=== PATIENT | female | born 1935 | race Caucasian/White ===

== ENCOUNTER → 2017-04-02 | Outpatient (CLI) | payer MEDICARE ==
[~2017-04-02] MED LIST: ATOR-22 PO; LISI-725 PO; LSX20 PO; MULT-506 PO; POTA-327 PO; PRT/20 PO; TRAM-10 PO
[2017-04-02 14:27] VITALS: BP 104/65; PULSE 76; TEMP 36.6; O2SAT 97
--- NOTE | 2017-04-02 15:43 | Radiation Oncology Follow-Up ---
Radiation Oncology Follow-Up Date of Visit Apr 02, 2017. 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 She has noted no changes to her breast. She denies any masses or tenderness and no change of the axilla. She' s had no swelling of her arm. She is up-to-date on mammography. She denies any bone pain. She has general arthralgias which are unchanged from previous. Allergies Coded Allergies: Penicillins (Unverified Allergy, Intermediate, HIVES, 03/12/10) Uncoded Allergies: NICKELSULFATE (Allergy, Mild, RASH, 10/26/09) Home Medications Scheduled Atorvastatin (Lipitor), 20 MG PO DAILY Furosemide (Lasix *), 20 MG PO DAILY Lisinopril (Zestril), 20 MG PO DAILY Multivitamin (Multivitamin), 1 TAB PO DAILY Pantoprazole (Protonix), 20 MG PO DAILY Potassium Ext Rel (Klor-Con), 10 MEQ PO BID Scheduled PRN Tramadol (Ultram), 1 TAB PO TID PRN for Pain Review of Systems Gastrointestinal: Symptoms: Constipation GI Comments: Manageable at home;relates it to tramadol use Oral: Symptoms: No Problems Respiratory: Symptoms: SOB With Exertion Other Respiratory: Pt reports this isn't a change; Urinary: Symptoms: Frequency Comments: Frequency without change;some urinary leakage during the day; Skin: Symptoms: No Problems Breast: Right Upper Arm Measurement: 35.5 Right Mid Arm Measurement: 26.0 Right Wrist Measurement: 17.5 Left Upper Arm Measurement: 33.0 Left Mid Arm Measurement: 24.0 Left Wrist Measurement: 16.8 Arm Dominence: Right Physical Exam Vital Signs Date Time Temp Pulse Resp B/P (MAP) Pulse Ox O2 Delivery O2 Flow Rate FiO2 04/02/17 14:27 36.6 76 12 104/65 97 Fatigue: None General Appearance: no apparent distress Eyes: normal inspection, EOMI ENT: hearing grossly normal, TMs normal Neck: no adenopathy, thyroid normal Respiratory/Chest: lungs clear, no respiratory distress, no accessory muscle use Breast: Breast examination reveals well-healed incisions of the right breast. Right breast notably smaller than the left. There are no masses or tenderness and no axillary adenopathy. She has no skin retractions or nipple changes. Using the Montgomery score cosmesis she has a Outcome. Left breast shows no masses or tenderness no axillary adenopathy. Cardiovascular: regular rate, rhythm, no gallop, no murmur Abdomen: non tender, soft, no organomegaly Neurologic/Psychiatric: no motor/sensory deficits, alert, normal mood/affect Skin: warm/dry Lymphatic: no adenopathy Additional Studies BILATERAL DIGITAL SCREENING MAMMOGRAM WITH CAD: 06/27/2016 CLINICAL HISTORY: Asymptomatic. Personal history of breast cancer. Comparison is made to exams dated: 06/25/2015 mammogram, 06/23/2014 mammogram, mammogram, 06/20/2013 mammogram, 06/14/2012 mammogram - [facility], and 06/19/2009. FINDINGS: There are scattered areas of fibroglandular density in both breasts. Current study was also evaluated with a Computer Aided Detection (CAD) system. There is stable expected architectural distortion and associated surgical clips with homogeneously dense coarse dystrophic calcification near the surgical site in the right upper outer quadrant. There is a stable benign rim calcification in the left breast. No new suspicious mass, architectural distortion or cluster of microcalcifications is seen bilaterally. IMPRESSION: ACR BI-RADS CATEGORY 1: NEGATIVE There is no mammographic evidence of malignancy. A 1 year screening mammogram is recommended. The patient will receive written notification of the results. Approximately 10% of breast cancers are not detected with mammography. A negative mammographic report should not delay biopsy if a clinically suggestive mass is present. Melissa Ellis M.D. ay/:06/30/2016 21:36:07 Assessment & Plan Plan: Continue annual mammography. Continue regular follow-up with her primary care physician. She would like to continue follow-up with our office in regards to breast exams. An appointment was given for 1 year. She may call if she has any questions or concerns in the interim. Total Time In Follow-Up I spent 20 minutes speaking to the patient and performing examination. I spent 15 minutes reviewing information and completing this note. Copy To Kike Albrecht M.D. Problem Qualifiers (1) Breast cancer: Breast location: upper outer quadrant of breast Estrogen receptor status: positive Patient sex: female Laterality: right Qualified Codes: C50.411 - Malignant neoplasm of upper-outer quadrant of right female breast; Z17.0 - Estrogen receptor positive status [ER+]
== END | disposition home or self-care (01) ==
LOC: C.ONC 14:15
PROVIDERS: ATTEND Physician Assistant Medical
DX: Z08 Encounter for follow-up examination after completed treatment for malignant neoplasm (principal); Z92.3 Personal history of irradiation; Z85.3 Personal history of malignant neoplasm of breast

== ENCOUNTER → 2017-06-29 | Outpatient (CLI) | payer OTHER ==
--- NOTE | 2017-06-30 07:41 | MAMMOGRAPHY REPORT ---
BILATERAL DIGITAL SCREENING MAMMOGRAM WITH CAD: 06/29/2017 CLINICAL HISTORY: Routine screening. Patient has no complaints. TECHNIQUE: Bilateral CC, MLO and repeat right cc views were obtained. Current study was also evaluat ed with a Computer Aided Detection (CAD) system. COMPARISON: Comparison is made to exams dated: 06/27/2016 mammogram, 06/25/2015 mammogram, 06/23/2014 m ammogram, 06/20/2013 mammogram, 06/14/2012 mammogram, and 06/12/2011 mammogram - [facility] enter. BREAST COMPOSITION: There are scattered areas of fibroglandular density in both breasts. FINDINGS: There are stable surgical clips and a benign dystrophic calcification in the upper outer qu adrant of the right breast, at the site of prior lumpectomy. A few other stable benign-appearing oliver cifications are scattered bilaterally. No new suspicious mass, architectural distortion or cluster o f microcalcifications is seen. IMPRESSION: ACR BI-RADS CATEGORY 1: NEGATIVE There is no mammographic evidence of malignancy. A 1 year screening mammogram is recommended. The pa tient will receive written notification of the results. Approximately 10% of breast cancers are not detected with mammography. A negative mammographic report should not delay biopsy if a clinically suggestive mass is present. Melissa Ellis M.D. ay/:06/29/2017 14:44:27 Statistician Theoretical: Odette MCCARTNEY)(Ras), [facility] letter sent: Normal 1/2 BI-RADS Code: ACR BI-RADS Category 1: Negative
== END | disposition home or self-care (01) ==
LOC: C.MAMM 14:18
PROVIDERS: ATTEND Family Medicine
DX: Z12.31 Encounter for screening mammogram for malignant neoplasm of breast (principal)

== ENCOUNTER 2017-11-18 14:25 | Inpatient (IN) | payer MEDICARE, OTHER ==
[~2017-11-18] VITALS: Ht 175.3 cm; Wt 105.8 kg
[~2017-11-18 14:25] MED LIST changes: +ACET-1257 PO; -ATOR-22 PO; +FURO-85 PO; +LPT10 PO; -LSX20 PO; +PANT40TA2 PO; -POTA-327 PO; +POTA10CA28 PO; -PRT/20 PO; -TRAM-10 PO; +WARF-246 PO
[2017-11-18] MEDS ORDERED: TRAM-10 PO (14:45)
[2017-11-18] MEDS ORDERED: DILTIAZEM HCL 5 MG/ML 5 ML VIAL IV STA (14:56)
--- NOTE | 2017-11-18 14:58 | EMERGENCY ROOM VISIT NOTE ---
History Report prepared by Jie: Willis Dozier Under the Supervision of: Dr. Gaudencio Mueller M.D. First contact with patient: 14:46 Chief Complaint: CARDIAC ASSESSMENT Stated Complaint: NEW ONSET A-FIB Nursing Triage Summary: Pt by ALS from [facility] for cardiac assessment. Pt dx with A fib RVR on 11/12. Pt seen in office and found to be in A fib 130s. pt denies chest pain. some SOB, decreased mobility. increased edema to BLE, R>L. History of Present Illness The patient is a 82 year old female who presents to the Emergency Room via ALS from [facility] for a cardiac assessment. She has a past medical history of breast cancer in full remission. The patient was diagnosed with atrial fibrillation with RVR on 11/12/2017 and started on Metoprolol. She was seen in the office earlier today and was found to be tachycardic and currently in a fib. She denies any headaches, chest pain, abdominal pain, nausea, vomiting , diarrhea, weakness, or numbness. However, she is currently feeling short of breath. She notes that she has been having increased bilateral leg swelling for the past several months that has persisted and has not improved. Source of History: patient, transfer records Onset: earlier today Position: other (Heart) Symptom Intensity: moderate Quality: other (Tachycardia) Timing: constant Associated Symptoms: + SOB, No headache, No chest pain, No nausea, No vomiting, No abdominal pain, No diarrhea, No weakness, No numbness Review of Systems See HPI for pertinent positives & negatives. A total of 10 systems reviewed and were otherwise negative. Past Medical & Surgical Medical Problems: (1) Adrenal adenoma (2) Congestive heart failure (3) DVT (deep venous thrombosis) (4) Dyslipidemia (5) Hiatal hernia (6) History of breast cancer (7) History of intracranial hemorrhage (8) History of pulmonary embolism (9) Paroxysmal atrial fibrillation (10) Pulmonary embolus Surgical Problems: (1) H/O lumpectomy (2) Status post insertion of inferior vena caval filter (3) Status post partial mastectomy (4) Status post right knee replacement Old medical records were reviewed. Nurse's notes were reviewed and I agree with. Family History Omitted secondary to the patient's age. Social History Smoking Status: Former Smoker Drug Use: none Marital Status: single Housing Status: lives alone Occupation Status: retired Current/Historical Medications Scheduled Atorvastatin (Lipitor), 10 MG PO HS Furosemide (Lasix), 20 MG PO BID Lisinopril (Zestril), 20 MG PO QAM Metoprolol Succ (Toprol Xl) (Toprol-Xl), 25 MG PO QAM Pantoprazole (Pantoprazole Sodium), 40 MG PO QAM Potassium Chloride (Micro-K Ext Rel), 10 MEQ PO BID Pregabalin (Lyrica), 50 MG PO BID Warfarin Sodium (Warfarin Sodium), 5 MG PO DAILY Scheduled PRN Fluticasone Propionate (Nasal) (Flonase Allergy Relief), 2 SPRAYS DASHA DAILY PRN for Allergy Symptoms Tramadol (Ultram), 50 MG PO Q6H PRN for Pain Allergies Coded Allergies: Nickel (Verified Allergy, Intermediate, rash to nickel sulfate, 11/18/17) Penicillins (Unverified Allergy, Intermediate, HIVES, 07/22/17) Physical Exam Vital Signs Date Time Temp Pulse Resp B/P (MAP) Pulse Ox O2 Delivery O2 Flow Rate FiO2 11/18/17 19:09 103 11/18/17 18:58 113 18 115/58 97 Room Air 11/18/17 18:21 109 18 105/74 96 Nasal Cannula 2.0 11/18/17 17:39 117 20 126/62 96 Nasal Cannula 11/18/17 17:08 113 18 113/63 96 Nasal Cannula 2.0 11/18/17 16:25 102 18 97 11/18/17 16:01 107/69 11/18/17 15:55 101 17 95 11/18/17 15:44 102 20 104/70 98 Nasal Cannula 2.0 11/18/17 15:43 104/70 11/18/17 15:25 96 25 92 11/18/17 15:08 126/79 11/18/17 15:08 127 20 126/79 95 Room Air 11/18/17 14:55 114 21 95 11/18/17 14:38 142 11/18/17 14:32 95 Room Air 11/18/17 14:32 95 Room Air 11/18/17 14:32 36.5 121 22 130/77 95 Room Air 11/18/17 14:31 130/77 Physical Exam General: Non-ill appearing older female in no acute distress. HEENT: Normal cephalic atraumatic. Pupils are equal round and reactive to light. Extraocular movements are intact. Oropharynx is pink with moist mucous membranes. No swelling of the mouth lips or tongue. Neck: Supple with a midline trachea. No meningeal signs or stiffness, no JVD or bruits. No Stridor. Chest: Clear to auscultation bilaterally. No wheezes or rhonchi. No increased work of breathing. Heart: Tachycardic rate with an irregular rhythm. Abdomen: Soft nontender, nondistended without rebound guarding or rigidity. Extremities: No cyanosis clubbing. No calf tenderness or assymetry. Pitting edema to the bilateral lower extremities. Spine/Back. Non tender to palpation. No CVA tenderness Skin: Good turgor without rashes. Neurologic exam: Cranial nerves two through 12 are intact. Motor and sensation are intact and symmetrical throughout. Medical Decision & Procedures ER Provider Diagnostic Interpretation: Radiology results as stated below per my review and radiologist interpretation: CHEST ONE VIEW PORTABLE CLINICAL HISTORY: 82 years-old Female presenting with CHEST PAIN. TECHNIQUE: Portable upright AP view of the chest was obtained. COMPARISON: 07/22/2017. FINDINGS: Atherosclerosis of aortic arch. Cardiac silhouette enlarged. Prominence of pulmonary vasculature. Coarsened lung markings. No focal opacity. No large pleural effusion or pneumothorax. Scoliosis and exaggerated thoracic kyphosis. Osteopenia suspected. Calcification in the right breast projects over the right lung base. Large hiatal hernia. IMPRESSION: 1. Questionable volume overload. No erin pulmonary edema or other evidence of acute cardiopulmonary disease. 2. Large hiatal hernia. Electronically signed by: Rupert Donald M.D. 11/18/2017 3:09 PM Dictated Date/Time: 11/18/2017 3:08 PM Laboratory Results 11/18/17 14:45 Red Blood Count 4.07, Mean Corpuscular Volume 89.2, Mean Corpuscular Hemoglobin 29.0, Mean Corpuscular Hemoglobin Concent 32.5, Mean Platelet Volume 10.4, Neutrophils (%) (Auto) 75.9, Lymphocytes (%) (Auto) 12.4, Monocytes (%) (Auto) 8.7, Eosinophils (%) (Auto) 2.3, Basophils (%) (Auto) 0.6, Neutrophils # (Auto) 5.21, Lymphocytes # (Auto) 0.85, Monocytes # (Auto) 0.60, Eosinophils # (Auto) 0.16, Basophils # (Auto) 0.04 11/18/17 14:45 Test 11/18/17 14:45 11/18/17 15:05 White Blood Count 6.87 K/uL (4.8-10.8) Red Blood Count 4.07 M/uL (4.2-5.4) Hemoglobin 11.8 g/dL (12.0-16.0) Hematocrit 36.3 % (37-47) Mean Corpuscular Volume 89.2 fL (80-100) Mean Corpuscular Hemoglobin 29.0 pg (25-34) Mean Corpuscular Hemoglobin Concent 32.5 g/dl (32-36) Platelet Count 273 K/uL (130-400) Mean Platelet Volume 10.4 fL (7.4-10.4) Neutrophils (%) (Auto) 75.9 % Lymphocytes (%) (Auto) 12.4 % Monocytes (%) (Auto) 8.7 % Eosinophils (%) (Auto) 2.3 % Basophils (%) (Auto) 0.6 % Neutrophils # (Auto) 5.21 K/uL (1.4-6.5) Lymphocytes # (Auto) 0.85 K/uL (1.2-3.4) Monocytes # (Auto) 0.60 K/uL (0.11-0.59) Eosinophils # (Auto) 0.16 K/uL (0-0.5) Basophils # (Auto) 0.04 K/uL (0-0.2) RDW Standard Deviation 48.9 fL (36.4-46.3) RDW Coefficient of Variation 15.0 % (11.5-14.5) Immature Granulocyte % (Auto) 0.1 % Immature Granulocyte # (Auto) 0.01 K/uL (0.00-0.02) Prothrombin Time 15.9 SECONDS (9.0-12.0) Prothromb Time International Ratio 1.5 (0.9-1.1) Activated Partial Thromboplast Time 29.5 SECONDS (21.0-31.0) Partial Thromboplastin Ratio 1.1 Anion Gap 6.0 mmol/L (3-11) Est Creatinine Clear Calc Drug Dose 48.1 ml/min Estimated GFR () 47.9 Estimated GFR (Non- 41.3 BUN/Creatinine Ratio 22.9 (10-20) Calcium Level 8.8 mg/dl (8.5-10.1) Total Bilirubin 0.3 mg/dl (0.2-1) Direct Bilirubin 0.1 mg/dl (0-0.2) Aspartate Amino Transf (AST/SGOT) 16 U/L (15-37) Alanine Aminotransferase (ALT/SGPT) 16 U/L (12-78) Alkaline Phosphatase 66 U/L (45-117) Total Creatine Kinase 50 U/L (26-192) Creatine Kinase MB 1.2 ng/ml (0.5-3.6) Creatine Kinase MB Ratio 2.4 (0-3.0) Pro-B-Type Natriuretic Peptide 1675 pg/ml (0-1800) Total Protein 7.7 gm/dl (6.4-8.2) Albumin 3.0 gm/dl (3.4-5.0) Lipase 330 U/L (73-393) Bedside Troponin I < 0.030 ng/ml (0-0.045) Laboratory studies as stated above per my review. Medications Administered Medications (Trade) Dose Ordered Sig/Claire Route Start Time Stop Time Status Last Admin Dose Admin Diltiazem HCl (Cardizem Inj) 10 mg NOW STAT IV 11/18/17 14:56 11/18/17 14:58 DC 11/18/17 15:11 10 MG Heparin Sodium/ Dextrose (Heparin 25,000 Unit/500ml D5W) 25,000 unit STK-MED ONCE .ROUTE 11/18/17 16:09 11/18/17 16:10 DC 11/18/17 16:12 25,000 UNIT Diltiazem HCl (Cardizem Bolus / Drip) 1 ea NOW STAT IV 11/18/17 16:28 11/18/17 16:32 DC 11/18/17 17:05 1 EA Diltiazem HCl 125 mg/Dextrose 125 ml @ 0 mls/hr Q0M PRN IV 11/18/17 16:45 12/18/17 16:44 11/18/17 17:04 5 MLS/HR ECG Per My Interpretation Indication: tachycardia Rate (beats per minute): 114 Rhythm: atrial fibrillation (rapid) Findings: nonspecific-ST abn, other (no evidence of acute STEMI) Comparison ECG Date: Earlier in the office at 1305 Change: Rate has slightly decreased, otherwise not change ED Course 1446: Past medical records reviewed. The patient was evaluated in room C10, and a complete history and physical examination were performed. 1456: Ordered Cardizem Inj 10 mg IV 1547: Upon reevaluation, the patient is resting. I discussed the results and treatment plan with the patient. She verbalized agreement of the treatment plan. The patient will be evaluated by Dr. Adams of [facility] for further management. 1548: The patient is doing well. Her heart rate is around 100. Medical Decision Differentials include, but are not limited to; atrial fibrillation with RVR, CHF , ACS, and electrolyte or metabolic abnormality. This patient comes in as described above. She was placed in room CD10. She sent over from the animal technician's office after being found to be in rapid A. fib and congestive heart failure. They have been trying to treat this as an outpatient and he feels that she needs to be admitted. She was given IV Cardizem 10 mg in the emergency department and this brought her rate down to about 100 and she seems stable with this. Her lungs are clear. Her chest x- ray shows cardiomegaly but no overt pulmonary edema. She does have significant pitting bilateral lower extremity edema. She has no significant electrolyte or metabolic abnormalities. I do think she needs to be admitted for further treatment and evaluation. Dr. Adams was consulted Medication Reconcilliation Current Medication List: was personally reviewed by me Blood Pressure Screening Patient's blood pressure: Normal blood pressure Blood pressure disposition: Did not require urgent referral Consults Time Called: 1541 Consulting Physician: Dr. Adams - [facility] Returned Call: [phone] Discussed the patient's case. The patient will be evaluated for further management. Impression Primary Impression: Rapid atrial fibrillation Additional Impression: CHF (congestive heart failure) Scribe Attestation The scribe's documentation has been prepared under my direction and personally reviewed by me in its entirety. I confirm that the note above accurately reflects all work, treatment, procedures, and medical decision making performed by me. Departure Information Dispostion Being Evaluated By Hospitalist Referrals Kike Albrecht M.D. (PCP) Patient Instructions My [facility] Problem Qualifiers
--- NOTE | 2017-11-18 15:10 | DIAGNOSTIC IMAGING REPORT ---
CHEST ONE VIEW PORTABLE CLINICAL HISTORY: 82 years-old Female presenting with CHEST PAIN. TECHNIQUE: Portable upright AP view of the chest was obtained. COMPARISON: 07/22/2017. FINDINGS: Atherosclerosis of aortic arch. Cardiac silhouette enlarged. Prominence of pulmonary vasculature. Coarsened lung markings. No focal opacity. No large pleural effusion or pneumothorax. Scoliosis and exaggerated thoracic kyphosis. Osteopenia suspected. Calcification in the right breast projects over the right lung base. Large hiatal hernia. IMPRESSION: 1. Questionable volume overload. No erin pulmonary edema or other evidence of acute cardiopulmonary disease. 2. Large hiatal hernia. Electronically signed by: Rupert Donald M.D. 11/18/2017 3:09 PM Dictated Date/Time: 11/18/2017 3:08 PM
[2017-11-18 15:30] LABS: BASO % 0.6 %; BASO ABS # 0.04 K/uL (0-0.2); EOS % 2.3 %; EOS ABS # 0.16 K/uL (0-0.5); HEMATOCRIT 36.3 % (37-47); HEMOGLOBIN 11.8 g/dL (12.0-16.0); IG# 0.01 K/uL (0.00-0.02); INR 1.5 (0.9-1.1); LYMPH % 12.4 %; LYMPH ABS # 0.85 K/uL (1.2-3.4); MEAN CELL VOLUME 89.2 fL (80-100); MEAN CORPUSCULAR HGB CONC 32.5 g/dl (32-36); MEAN PLATELET VOLUME 10.4 fL (7.4-10.4); MONO % 8.7 %; NEUT % 75.9 %; NEUT ABS # 5.21 K/uL (1.4-6.5); PLATELET COUNT 273 K/uL (130-400); PTT PATIENT 29.5 SECONDS (21.0-31.0); RED CELL DISTRIBUTION WIDTH SD 48.9 fL (36.4-46.3); WHITE BLOOD COUNT 6.87 K/uL (4.8-10.8)
[2017-11-18 15:43] LABS: CALCIUM 8.8 mg/dl (8.5-10.1); CREATININE 1.21 mg/dl (0.60-1.20)
[2017-11-18 15:49] LABS: CKMB 1.2 ng/ml (0.5-3.6); TOTAL PROTEIN 7.7 gm/dl (6.4-8.2)
[2017-11-18] MEDS ORDERED: HEPARIN 25000 UNIT/500 ML D5W ONE (16:09)
[2017-11-18] MEDS ORDERED: DILTIAZEM BOLUS / DRIP IV STA (16:28)
[2017-11-18] MEDS ORDERED: METO25TA3 PO (17:03)
[2017-11-18] MEDS ORDERED: WARF-246 PO (17:03)
[2017-11-18] MEDS ORDERED: FLUT0.15 NAE (17:03)
[2017-11-18] MEDS ORDERED: LYR/50 PO (17:03)
[2017-11-18] MEDS: DILTIAZEM HCL INJ 125 MG in DEXTROSE 5% 100ML IV PRN (17:04)
--- NOTE | 2017-11-18 18:02 | History and Physical ---
History & Physical Date & Time of Service: Nov 18, 2017 at 18:02 . Chief Complaint: recurrent atrial fibrillation . Primary Care Physician: Kike Albrecht M.D. . History of Present Illness Source: patient, clinic records, hospital records 82-year-old female followed by Dr. Albrecht. 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 History of paroxysmal atrial fibrillation associated with pulmonary embolism in 2017. Other problems as noted below. Seen in clinic today by Dr. Feliciano. Found to be in atrial fibrillation with rapid ventricular response. Referred to the hospital for further evaluation and treatment. Patient notes fatigue and dyspnea on exertion. No chest pain or palpitations. She has chronic lower extremity edema that has gradually worsened. . Past Medical/Surgical History Chronic and Resolved Medical Problems: (1) Adrenal adenoma Permanent Comment: 2 cm left adrenal adenoma noted CT 07/22/17 Status: Chronic (2) Congestive heart failure Status: Resolved (3) DVT (deep venous thrombosis) Status: Resolved (4) Dyslipidemia Status: Chronic (5) Hiatal hernia Status: Chronic (6) History of breast cancer Permanent Comment: infiltrating ductal carcinoma right breast, partial mastectomy, pT1c pN0M0, radiation therapy, tamoxifen x 5 years Status: Chronic (7) History of intracranial hemorrhage Permanent Comment: secondary to TPA for pulmonary embolism Status: Chronic (8) History of pulmonary embolism Permanent Comment: 2005 while taking tamoxifen; recurrence 2015 Status: Chronic (9) Paroxysmal atrial fibrillation Permanent Comment: Jul 2017 associated with acute pulmonary embolism Status: Chronic Surgical Problems: (2) Status post insertion of inferior vena caval filter Permanent Comment: 2006 Status: Chronic (3) Status post partial mastectomy Permanent Comment: right breast, infiltrating ductal Ca, 2000, [facility], Dr. Valladares Status: Chronic (4) Status post right knee replacement Status: Chronic Family History Mother-stroke, diabetes Father-cancer (? Gastric) Sister-breast cancer Sister-lymphoma Brother-prostate cancer Brother-diabetes . Social History Smoking Status: Former Smoker Drug Use: none Marital Status: single Occupational Status: retired Immunizations History of Influenza Vaccine: Yes History of Tetanus Vaccine?: No History of Pneumococcal: Yes Pneumococcal Date: Jul 08, 2006 History of Hepatitis B Vaccine: No Allergies Coded Allergies: Nickel (Verified Allergy, Intermediate, rash to nickel sulfate, 11/18/17) Penicillins (Unverified Allergy, Intermediate, HIVES, 07/22/17) Home Medications Scheduled Atorvastatin (Lipitor), 10 MG PO HS Furosemide (Lasix), 20 MG PO BID Lisinopril (Zestril), 20 MG PO QAM Metoprolol Succ (Toprol Xl) (Toprol-Xl), 25 MG PO QAM Pantoprazole (Pantoprazole Sodium), 40 MG PO QAM Potassium Chloride (Micro-K Ext Rel), 10 MEQ PO BID Pregabalin (Lyrica), 50 MG PO BID Warfarin Sodium (Warfarin Sodium), 0 PO UD Scheduled PRN Fluticasone Propionate (Nasal) (Flonase Allergy Relief), 2 SPRAYS DASHA DAILY PRN for Allergy Symptoms Tramadol (Ultram), 50 MG PO Q6H PRN for Pain Review of Systems Constitutional: No fever, No weight loss Eyes: No worsening of vision ENT: + nasal symptoms (Sinus congestion), No sore throat Respiratory: + dyspnea on exertion, No cough Cardiovascular: + problem reported (As noted above in HPI) Abdomen: No nausea, No vomiting, No diarrhea, No GI bleeding Musculoskeletal: + joint pain (Chronic back and hip pain) Genitourinary - Female: No dysuria, No hematuria Neurologic: + problem reported (No headaches) Endocrine: + fatigue, No excessive thirst, No excessive urination Hematologic / Lymphatic: No abnormal bleeding/bruising, No swollen lymph nodes Integumentary: No rash, No new/changing skin lesions Physical Exam Vital Signs Date Time Temp Pulse Resp B/P (MAP) Pulse Ox O2 Delivery O2 Flow Rate FiO2 11/18/17 17:39 117 20 126/62 96 Nasal Cannula 11/18/17 17:08 113 18 113/63 96 Nasal Cannula 2.0 11/18/17 16:25 102 18 97 11/18/17 16:01 107/69 11/18/17 15:55 101 17 95 11/18/17 15:44 102 20 104/70 98 Nasal Cannula 2.0 11/18/17 15:43 104/70 11/18/17 15:25 96 25 92 11/18/17 15:08 126/79 11/18/17 15:08 127 20 126/79 95 Room Air 11/18/17 14:55 114 21 95 11/18/17 14:38 142 11/18/17 14:32 95 Room Air 11/18/17 14:32 95 Room Air 11/18/17 14:32 36.5 121 22 130/77 95 Room Air 11/18/17 14:31 130/77 General Appearance: WD/WN, no apparent distress Head: normocephalic, atraumatic Eyes: normal inspection, PERRL, EOMI, sclerae normal, + pertinent finding ( Conjunctivae clear) ENT: normal ENT inspection, hearing grossly normal Neck: thyroid normal, trachea midline Respiratory/Chest: lungs clear (Auscultation and percussion), no respiratory distress, no accessory muscle use Cardiovascular: + irregularly irregular, + pertinent finding (No murmurs or gallops appreciated; no JVD; 2-3+ pretibial edema; pedal pulses diminished) Abdomen/GI: normal bowel sounds, non tender, soft, no organomegaly Extremities/Musculoskelatal: + pertinent finding (No cyanosis; no digital clubbing; no calf tenderness) Neurologic/Psych: digital publishing specialist II-XII nml as tested (PERRL. EOMI, no facial palsy, no dysarthria), no motor/sensory deficits (Motor strength extremities grossly intact), alert, normal mood/affect, oriented x 3, + pertinent finding (Dystonic movements of tongue) Skin: normal color, warm/dry, no rash Lymphatic: no adenopathy (Cervical) Diagnostics Laboratory Results Results Past 24 Hours Test 11/18/17 14:45 11/18/17 15:05 Range/Units White Blood Count 6.87 4.8-10.8 K/uL Red Blood Count 4.07 4.2-5.4 M/uL Hemoglobin 11.8 12.0-16.0 g/dL Hematocrit 36.3 37-47 % Mean Corpuscular Volume 89.2 80-100 fL Mean Corpuscular Hemoglobin 29.0 25-34 pg Mean Corpuscular Hemoglobin Concent 32.5 32-36 g/dl Platelet Count 273 130-400 K/uL Mean Platelet Volume 10.4 7.4-10.4 fL Neutrophils (%) (Auto) 75.9 % Lymphocytes (%) (Auto) 12.4 % Monocytes (%) (Auto) 8.7 % Eosinophils (%) (Auto) 2.3 % Basophils (%) (Auto) 0.6 % Neutrophils # (Auto) 5.21 1.4-6.5 K/uL Lymphocytes # (Auto) 0.85 1.2-3.4 K/uL Monocytes # (Auto) 0.60 0.11-0.59 K/uL Eosinophils # (Auto) 0.16 0-0.5 K/uL Basophils # (Auto) 0.04 0-0.2 K/uL RDW Standard Deviation 48.9 36.4-46.3 fL RDW Coefficient of Variation 15.0 11.5-14.5 % Immature Granulocyte % (Auto) 0.1 % Immature Granulocyte # (Auto) 0.01 0.00-0.02 K/uL Prothrombin Time 15.9 9.0-12.0 SECONDS Prothromb Time International Ratio 1.5 0.9-1.1 Activated Partial Thromboplast Time 29.5 21.0-31.0 SECONDS Partial Thromboplastin Ratio 1.1 Sodium Level 144 136-145 mmol/L Potassium Level 4.0 3.5-5.1 mmol/L Chloride Level 109 98-107 mmol/L Carbon Dioxide Level 29 21-32 mmol/L Anion Gap 6.0 3-11 mmol/L Blood Urea Nitrogen 28 7-18 mg/dl Creatinine 1.21 0.60-1.20 mg/dl Est Creatinine Clear Calc Drug Dose 48.1 ml/min Estimated GFR () 47.9 Estimated GFR (Non- 41.3 BUN/Creatinine Ratio 22.9 10-20 Random Glucose 102 70-99 mg/dl Calcium Level 8.8 8.5-10.1 mg/dl Total Bilirubin 0.3 0.2-1 mg/dl Direct Bilirubin 0.1 0-0.2 mg/dl Aspartate Amino Transf (AST/SGOT) 16 15-37 U/L Alanine Aminotransferase (ALT/SGPT) 16 12-78 U/L Alkaline Phosphatase 66 45-117 U/L Total Creatine Kinase 50 26-192 U/L Creatine Kinase MB 1.2 0.5-3.6 ng/ml Creatine Kinase MB Ratio 2.4 0-3.0 Pro-B-Type Natriuretic Peptide 1675 0-1800 pg/ml Total Protein 7.7 6.4-8.2 gm/dl Albumin 3.0 3.4-5.0 gm/dl Lipase 330 73-393 U/L Bedside Troponin I < 0.030 0-0.045 ng/ml Diagnostic Radiology Chest x-ray showed cardiomegaly with increased pulmonary vascular congestion; hiatal hernia also noted. . EKG EKG performed at 1431 reviewed and demonstrated atrial fibrillation at 110/ minute, baseline artifact, no significant ST or T-wave abnormalities. . Impression Assessment and Plan RECURRENT ATRIAL FIBRILLATION History of PAF associated with pulmonary embolism in July 2017. Now with recurrent atrial fibrillation, time of onset uncertain. Seen by Cardiology in ED. Started on IV diltiazem for rate control. Continue metoprolol. On warfarin for recurrent pulmonary emboli. INR subtherapeutic, so started on IV heparin. Further management per Cardiology. CHF History of left ventricular diastolic CHF. Chest x-ray now shows cardiomegaly and pulmonary vascular congestion. Has worsening dependent edema. Change furosemide to 40 mg IV BID. Follow weights. Follow and titrate therapy. HYPERTENSION Continue metoprolol and lisinopril. Follow and titrate therapy. CKD III Serum creatinine 1.21. Receiving IV diuretic therapy. Monitor renal function. GERD Continue PPI. DYSLIPIDEMIA Continue atorvastatin. VTE PROPHYLAXIS / HISTORY OF PE & DVT On warfarin with subtherapeutic INR. Receiving IV heparin for atrial fibrillation. Titrate warfarin. Ambulate as able. RESUSCITATION STATUS Discussed with patient. She does not have a living will. She would like resuscitation attempted in the event of a cardiopulmonary arrest if there is a reasonable chance of a meaningful recovery, but does not want prolonged extraordinary measures if prognosis is poor. Therefore, code status = "Level 1" (full resuscitation). DISPOSITION Admit to Telemetry Unit. Expected discharge to home. Family Medicine follow-up with Dr. Albrecht. Follow-up with [facility] Cardiology. . Resuscitation Status VTE Prophylaxis Will order VTE Prophylaxis: Yes
[2017-11-18] MEDS ORDERED: ACETAMINOPHEN 325 MG TAB PO PRN (18:15)
--- NOTE | 2017-11-18 19:20 | CARDIOLOGY CONSULTATION ---
DATE OF CONSULTATION: 11/18/2017 CONSULTATION REQUESTED BY: Gagan Adams MD REASON FOR CONSULTATION: Atrial fibrillation with rapid ventricular response. HISTORY OF PRESENT ILLNESS: Mrs. Wolf is a very pleasant 82-year-old woman who was sent to the [facility] Emergency Department today by her primary travel rn, Dr. Feliciano, after being found to be in atrial fibrillation with rapid ventricular response. She was recently found to be in atrial fibrillation when hospitalized at [facility] previously for acute bilateral PEs. At that time she spontaneously converted to sinus rhythm on her own and was sent home on Coumadin therapy. She was recently seen by her primary care physician, Dr. Albrecht and was found to be back in atrial fibrillation; however, she was relatively asymptomatic at that time. She was started on metoprolol succinate 25 mg daily, and set up for cardiology reassessment. Again, upon presentation today to Dr. Feliciano's office, she was confirmed to be in atrial fibrillation at 131 beats per minute. She denied any significant complaints. Her main complaint is that of lower extremity edema which is a chronic finding, but she denies any significant chest pain, shortness of breath, palpitations, lightheadedness, dizziness, or syncope. She states that she has been compliant with her medications at home. Unfortunately, her most recent INR was 1.9 as an outpatient on 11/12/2017. PAST SURGICAL HISTORY: 1. IVC filter placement in 2005. 2. Lumpectomy. MEDICAL ILLNESSES: 1. Paroxysmal atrial fibrillation. 2. History of PE and DVT. 3. History of breast cancer. FAMILY HISTORY: Denies any premature coronary artery disease or sudden cardiac . SOCIAL HISTORY: The patient denies any alcohol, tobacco or recreational drug use. She is not . She lives by herself. She is retired from the [employer]. REVIEW OF SYSTEMS: As per HPI. All other review of systems reviewed and negative at this time. ALLERGIES: 1. PENICILLIN. 2. NICKEL. MEDICATIONS AN OUTPATIENT: 1. Metoprolol succinate 25 mg daily. 2. Warfarin 5 mg daily as directed by the [facility]. 3. Lisinopril 20 mg daily. 4. Lasix 20 mg b.i.d. 5. Potassium chloride 10 mEq b.i.d. 6. Atorvastatin 10 mg daily. 7. Protonix daily. PHYSICAL EXAMINATION: VITAL SIGNS: Temperature 36.5, pulse 128, respiratory rate 12, blood pressure 107/69. GENERAL: Awake, alert, oriented x3, in no acute distress. HEENT: Normocephalic, atraumatic. Pupils equal, round, and reactive to light and accommodation. Extraocular muscles intact. Anicteric sclerae. Moist mucous membranes. NECK: No JVD, no bruit. CARDIOVASCULAR: Irregularly irregular and fast. Unable to appreciate murmurs, rubs or gallops. PULMONARY: Clear to auscultation bilaterally. No rales, rhonchi, or wheezing. ABDOMEN: Bowel sounds x4, soft. No rebound, guarding, tenderness. No organomegaly. EXTREMITIES: +2 to 3 bilateral lower extremity pitting edema. No clubbing or cyanosis. +1 pedal pulses bilaterally. SKIN: Warm and dry. TEST RESULTS: A 12-lead EKG performed in the Emergency Department independently reviewed at this time shows atrial fibrillation at 114 beats per minute. LABORATORY STUDIES OF SIGNIFICANCE: Sodium 144, potassium 4, BUN 28, creatinine 1.21. INR of 1.5. IMPRESSION: 1. Atrial fibrillation with rapid ventricular response. 2. History of bilateral pulmonary emboli. 3. Chronic lower extremity edema, likely secondary to [place] filter placement. RECOMMENDATIONS: It was my pleasure to see Mrs. Wolf in consultation today. The pathophysiology and treatment options of atrial fibrillation were once again discussed with patient. Given her history of PE, I do believe she would benefit from antiarrhythmic therapy, but unfortunately her INR is now subtherapeutic, so at this point we will place her on a Cardizem drip for rate control as well as a heparin drip. We will make her n.p.o. after midnight and consideration for ELEANOR cardioversion in the a.m. with likely initiation of amiodarone to maintain sinus rhythm afterwards.
[2017-11-18 21:03] VITALS: BP 121/79; PULSE 121; TEMP 37; O2SAT 95; Ht 175.3 cm; Wt 105.8 kg
[2017-11-18 23:04] LABS: PTT PATIENT 67.8 SECONDS (21.0-31.0)
[2017-11-18 23:26] VITALS: BP 105/67; PULSE 71; TEMP 36.8; O2SAT 96
[2017-11-19] VITALS (14 sets, daily range): BP systolic 94–135; BP diastolic 51–76; PULSE 69–121; TEMP 36–36.8; O2SAT 92–97
[2017-11-19] MEDS: DILTIAZEM HCL INJ 125 MG in DEXTROSE 5% 100ML IV PRN (04:01)
[2017-11-19 05:29] LABS: CALCIUM 8.2 mg/dl (8.5-10.1); POTASSIUM 3.9 mmol/L (3.5-5.1)
[2017-11-19] MEDS ORDERED: FLUTICASONE PROPIONATE NA SPR 16 GM BTL NAE PRN (05:45)
[2017-11-19] MEDS ORDERED: TRAMADOL HCL 50 MG TAB PO PRN (05:45)
[2017-11-19 05:53] LABS: PTT PATIENT 84.9 SECONDS (21.0-31.0)
[2017-11-19] MEDS: HEPARIN 25,000 UNIT/500ML D5W 500 ML IV PRN ×3 (06:16→21:03)
[2017-11-19 06:44] LABS: INR 1.4 (0.9-1.1)
[2017-11-19] MEDS: METOPROLOL SUCC 25MG EXT REL TAB PO SCH (08:06)
[2017-11-19] MEDS: PANTOprazole SOD 40 MG TAB PO SCH (08:10)
[2017-11-19] MEDS: POTASSIUM CHLORIDE 10 MEQ TABCR PO SCH ×2 (08:11→20:09)
[2017-11-19] MEDS: PREGABALIN 50 MG CAP PO SCH ×2 (08:11→20:09)
[2017-11-19] MEDS: LISINOPRIL 20 MG TAB PO SCH (08:11)
--- NOTE | 2017-11-19 08:11 | Clinical Documentation Query ---
GRETCHEN Mathews : CLINICAL DOCUMENTATION QUERY Patient is an 82 year old female admitted for evaluation and treatment of recurrent atrial fibrillation with a rapid ventricular response. Noted history of CHF with diastolic dysfunction. Noted cardiomegaly and pulmonary vascular congestion on chest radiograph, worsening dependent edema. Lasix was changed to IV BID dosing. She is being monitored on telemetry with daily weights, I/O, and was seen in consultation by cardiology. As appropriate, consider capture of the acuity of diastolic CHF as suggested below. Thank you. In your clinical opinion is this patient being managed for: ( ) Acute on chronic diastolic CHF secondary to rapid atrial fibrillation ( ) Not Agree ( ) Other explanation of clinical findings (Please Explain) ( ) Unable to determine (Please Define) ( ) Need to Discuss The medical record reflects the following clinical findings, treatment, and risk factors. Clinical Indicators:Noted history of CHF with diastolic dysfunction. Noted cardiomegaly and pulmonary vascular congestion on chest radiograph, worsening dependent edema Treatment: Lasix was changed to IV BID dosing. She is being monitored on telemetry with daily weights, I/O, and was seen in consultation by cardiology Risk Factors: Atrial fibrillation with RVR/loss of atrial kick/reduced filling times. Please clarify and document your clinical opinion in the progress notes and discharge summary. Terms such as "probable", "suspected", "likely", "questionable", "possible", or "still to be ruled out" are acceptable. IF IN AGREEMENT, YOU MUST DOCUMENT ABOVE DIAGNOSTIC STATEMENT IN DAILY PROGRESS NOTES AND DISCHARGE SUMMARY. This document is not part of the patient's record. Thank You, Gaudencio Chand, FAMILIA [phone]
[2017-11-19] MEDS: FUROSEMIDE INJ 40 MG in SYRINGE 0 ML IV SCH ×2 (08:44→15:38)
[2017-11-19] MEDS: SODIUM CHLORIDE 0.9% 1000ML 1,000 ML IV SCH ×3 (09:01→21:50)
--- NOTE | 2017-11-19 10:18 | Progress Note ---
Internal Med Progress Note Date of Service: Nov 19, 2017. Provider Documentation: SUBJECTIVE: denies any chest pain or palpitations no sob or cough afebrile npo currently having lower extremity edema for few months now denies any nausea OBJECTIVE: Vital Signs-as noted below Exam: General-alert and Oriented. Not in distress. ENT-Normal hearing Neck-no neck masses Lungs-cta b/l no wheezing or crackles Heart-s1 and s2 heard irregular no murmurs Abdomen-soft bowel sounds present non tender no distension Extremities-b/l lower extremity gross edema present and mild erythema Neuro-alert and awake moves extremities Lab data as noted below. ASSESSMENT & PLAN: RECURRENT ATRIAL FIBRILLATION History of PAF associated with pulmonary embolism in July 2017. currently on Cardizem drip home Toprol xl on iv heparin as inr subtherapeutic on Coumadin' plan for ELEANOR and cardioversion as per cardiology initiation of amiodarone as per cardiology CHF Acute on chronic left ventricular diastolic CHF. Chest x-ray now shows cardiomegaly and pulmonary vascular congestion. Worsening lower extremity edema. on Lasix 20mg bid at home which is held now started on furosemide to 40 mg IV BID will hold if sbp drops or renal function deteriorates. i/o's daily weights will monitor HYPERTENSION on metoprolol and lisinopril. will monitor CKD III Serum creatinine 1.21. Will monitor while on IV diuretic therapy. Cr 1.0 today GERD Continue PPI. DYSLIPIDEMIA Continue atorvastatin. VTE PROPHYLAXIS / HISTORY OF PE & DVT on iv heparin and Coumadin RESUSCITATION STATUS Level 1 as per admission DISPOSITION monitor in tele to be determined Vital Signs: Date Time Temp Pulse Resp B/P (MAP) Pulse Ox O2 Delivery O2 Flow Rate FiO2 11/19/17 16:14 36.5 80 20 103/68 (80) 97 Nasal Cannula 2.0 11/19/17 16:00 Nasal Cannula 2.0 11/19/17 13:25 36.8 72 20 107/67 (80) 95 11/19/17 12:52 75 14 110/46 (67) 92 Room Air 11/19/17 12:43 70 12 104/46 (65) 92 Room Air 11/19/17 12:32 67 12 99/43 (61) 97 Nasal Cannula 4 11/19/17 12:22 71 12 103/48 (66) 95 Nasal Cannula 4 11/19/17 12:10 71 10 100/46 (64) 95 Nasal Cannula 4 11/19/17 12:01 66 10 110/56 (74) 96 Nasal Cannula 4 11/19/17 12:00 Nasal Cannula 2.0 11/19/17 11:58 69 10 124/60 92 Nasal Cannula 4 11/19/17 11:55 Nasal Cannula 11/19/17 11:54 121 12 116/63 92 Nasal Cannula 4 11/19/17 11:51 Nasal Cannula 4 11/19/17 11:50 101 12 115/51 93 Nasal Cannula 4 11/19/17 11:45 114 12 135/73 96 Nasal Cannula 4 11/19/17 11:20 101 16 122/46 (71) 93 Room Air 11/19/17 10:26 36.0 86 18 112/73 (86) 92 Room Air 11/19/17 08:21 100/66 (77) 11/19/17 08:00 Nasal Cannula 2.0 11/19/17 06:49 36.6 82 18 94/60 (71) 94 Nasal Cannula 2.0 11/19/17 04:04 95 Nasal Cannula 2.0 11/19/17 03:30 36.6 74 20 113/68 (83) 96 Nasal Cannula 2.0 11/19/17 00:00 95 Nasal Cannula 2.0 11/18/17 23:26 36.8 71 20 105/67 (80) 96 Nasal Cannula 2.0 11/18/17 21:03 37.0 121 18 121/79 95 Nasal Cannula 2.0 11/18/17 20:31 88 102/52 93 11/18/17 20:20 88 20 102/52 93 Room Air 11/18/17 19:09 103 11/18/17 18:58 113 18 115/58 97 Room Air 11/18/17 18:21 109 18 105/74 96 Nasal Cannula 2.0 Lab Results: Results Past 24 Hours Test 11/18/17 22:36 11/19/17 04:52 11/19/17 06:04 11/19/17 13:19 Range/Units Activated Partial Thromboplast Time 67.8 84.9 45.3 21.0-31.0 SECONDS Partial Thromboplastin Ratio 2.6 3.3 1.7 Sodium Level 142 136-145 mmol/L Potassium Level 3.9 3.5-5.1 mmol/L Chloride Level 109 98-107 mmol/L Carbon Dioxide Level 27 21-32 mmol/L Anion Gap 6.0 3-11 mmol/L Blood Urea Nitrogen 21 7-18 mg/dl Creatinine 1.00 0.60-1.20 mg/dl Est Creatinine Clear Calc Drug Dose 58.0 ml/min Estimated GFR () 60.3 Estimated GFR (Non- 52.1 BUN/Creatinine Ratio 20.8 10-20 Random Glucose 105 70-99 mg/dl Calcium Level 8.2 8.5-10.1 mg/dl Prothrombin Time 14.1 9.0-12.0 SECONDS Prothromb Time International Ratio 1.4 0.9-1.1
[2017-11-19] MEDS ORDERED: FENTANYL CITRATE INJ 50 MCG/1 ML 2 ML VIAL ONE (10:57)
[2017-11-19] MEDS ORDERED: MIDAZOLAM HCL 1 MG/ML 2ML VIAL ONE (10:57)
[2017-11-19] MEDS ORDERED: BENZOCAIN/TETRACA/BUTAM SPRAY 200 APPLN/20 GM SPRY ONE (10:57)
[2017-11-19] MEDS ORDERED: CANNULA ONE (10:57)
[2017-11-19] MEDS ORDERED: GLYCOPYRROLATE INJ 0.2 MG/ML VIAL ONE (10:57)
--- NOTE | 2017-11-19 11:40 | Pre Sedation Assessment ---
Pre Sedation Assessment General Date of Sedation: Nov 19, 2017. Vital Signs Past 12 Hours Date Time Temp Pulse Resp B/P (MAP) Pulse Ox O2 Delivery O2 Flow Rate FiO2 11/19/17 11:20 101 16 122/46 (71) 93 Room Air 11/19/17 10:26 36.0 86 18 112/73 (86) 92 Room Air 11/19/17 08:21 100/66 (77) 11/19/17 08:00 Nasal Cannula 2.0 11/19/17 06:49 36.6 82 18 94/60 (71) 94 Nasal Cannula 2.0 11/19/17 04:04 95 Nasal Cannula 2.0 11/19/17 03:30 36.6 74 20 113/68 (83) 96 Nasal Cannula 2.0 11/19/17 00:00 95 Nasal Cannula 2.0 Review Cardiovascular: no gallop, no JVD, no murmur, normal peripheral pulses, + irregularly irregular Lungs: chest non-tender, lungs clear, normal breath sounds, no respiratory distress, no accessory muscle use Pre-Sedation Airway Assessment Smoking Status: Never Smoker Hx of Sleep Apnea: No Short Thick Neck: No Thyro-mental Distance: > 3 Finger Breadths Oral Cavity: Dentures, WNL Mallampati Classification: Class II ASA Classification: Class III NPO Status Date of Last Intake of Fluids: Nov 18, 2017 Time of Last Intake of Fluids: 2358 Date of Last Intake of Solids: Nov 18, 2017 Time of Last Intake of Solids: 2358 Notes The planned sedation has been discussed with the patient. Informed Consent was obtained. I have identified the patient, determined the appropriateness of sedation and have assessed the patient immediately prior to the procedure. All medicine(s) and interventions are by my order.
--- NOTE | 2017-11-19 11:59 | Post Sedation Assessment ---
Post Sedation Assessment General Date of Sedation Nov 19, 2017. Vital Signs: Vital Signs Past 12 Hours Date Time Temp Pulse Resp B/P (MAP) Pulse Ox O2 Delivery O2 Flow Rate FiO2 11/19/17 11:20 101 16 122/46 (71) 93 Room Air 11/19/17 10:26 36.0 86 18 112/73 (86) 92 Room Air 11/19/17 08:21 100/66 (77) 11/19/17 08:00 Nasal Cannula 2.0 11/19/17 06:49 36.6 82 18 94/60 (71) 94 Nasal Cannula 2.0 11/19/17 04:04 95 Nasal Cannula 2.0 11/19/17 03:30 36.6 74 20 113/68 (83) 96 Nasal Cannula 2.0 11/19/17 00:00 95 Nasal Cannula 2.0 Post Procedure Recovery Score Activity: (2) Moves 4 extremities * Respiration: (2) Deep breath/cough Circulation: (2) +/-20% PreAnes Value Consciousness: (2) Fully Awake Oxygen Saturation: (2) > 92% On Room Air Discharge Sedation Level of Care: Fast Track Phase II Post Sedation Plan On clinical assessment, the patient appears to have tolerated the sedation without complications. Patient is recovering as anticipated. Patient will continue to be monitored by nursing and may be discharged when sedation discharge criteria are met per below protocol. Upon Completions of procedure and additional 15 minutes continue every 5 minute vital signs and the P.A.R. score; then discharge to a Phase I or Fast Track to Phase II per the following guidelines: * Discharge Patient to appropriate Phase II area if PAR is 8 or greater or return to pre- procedure baseline. The post - procedure orders will be as directed. * If PAR score is less than 8 or not return to pre-procedure baseline then patient will follow Phase I monitoring till PAR is reached for Phase II. The Phase I may be done in procedure room or may call to secure a Phase I area. * If naloxone or flumazenil are used for reversal, hold in Phase I for an additional 60 -120 minutes before discharge to Phase II. Please call the Sedation Physician to re-evaluate and complete post-note for discharge to Phase II area. Do NOT discharge from procedure sedation or Phase 1 until post- sedation evaluation note is complete by procedure /sedation MD Sedation Discharge Instructions to be given to the patient at discharge to home.
--- NOTE | 2017-11-19 12:02 | [facility] Post Operative Brief Note ---
Immediate Operative Summary Operative Date Nov 19, 2017. Pre-Operative Diagnosis paroxysmal atrial fibrillation with RVR Post-Operative Diagnosis same Procedure(s) Performed ELEANOR/Cardioversion Start time: Stop time: Conscious sedation achieved with a total of 3mg of Versed and 50mcg of Fentanyl Surgeon Francis Atomic Physics Professor Surgeon(s) Abril BARBOSA Estimated Blood Loss none Findings Consistent with Post-Op Diagnosis Specimens none Drains None Anesthesia Type IV Sedat Cons RN Only Complication(s) complete ELEANOR unable to be performed, probe met with resistance after left atrial appendage was completely visualized otherwise, tolerated well Disposition Disposition: [facility]
--- NOTE | 2017-11-19 12:05 | Procedure Note ---
Procedure Note Date of Service Nov 19, 2017. Procedure Note Informed consent obtained risks/benefits/alternative treatments reviewed patient adequately sedated with Versed 3mg and Fentanyl 50mcg ELEANOR performed: MARTHA very well visualized, no thombus present complete ELEANOR not performed, probe met with resistance in esophagus and exam aborted Pt repositioned 360J of DC energy delivered with successful cardioversion to sinus rhythm start time: 1145 stop time: 1201 pt tolerated well no complications to be recovered in [facility] per protocol will initiate po amio upon return to floor
--- NOTE | 2017-11-19 12:13 | Cardiology Follow-Up ---
Subjective Subjective Date of Service: Nov 19, 2017. Pt evaluation today including: conversation w/ patient, physical exam, chart review, lab review, review of studies, review of inpatient medication list Additional Details: Pt seen and examined, only complaint overnight is not being able to rest, rather tired today. But denies cp, sob, palpitations, lightheadedness or dizziness. tele reviewed: afib rate controlled Problem List Medical Problems: (1) Atrial fibrillation with RVR Status: Acute (2) CHF (congestive heart failure) Status: Acute (3) GI bleed Status: Acute (4) Rapid atrial fibrillation Status: Acute Review of Systems Respiratory: + dyspnea on exertion, No see HPI, No cough, No sputum, No wheezing, No shortness of breath, No dyspnea at rest, No hemoptysis, No problem reported Cardiac: + edema, No see HPI, No chest pain, No orthopnea, No PND, No claudication, No palpitations, No problem reported Endo: + fatigue Objective Vital Signs Last Vital Signs Documentation Date Time Temp Pulse Resp B/P (MAP) Pulse Ox O2 Delivery O2 Flow Rate FiO2 11/19/17 11:20 101 16 122/46 (71) 93 Room Air 11/19/17 10:26 36.0 11/19/17 08:00 2.0 Physical Exam: General Appearance: WD/WN, no apparent distress Eyes: bilateral eyes normal inspection, bilateral eyes PERRL, bilateral eyes EOMI ENT: normal ENT inspection, hearing grossly normal, TMs normal, pharynx normal Neck: supple, no adenopathy, thyroid normal, no JVD, no carotid bruits, trachea midline Respiratory/Chest: chest non-tender, lungs clear, normal breath sounds, no respiratory distress, no accessory muscle use Cardiovascular: no JVD, no murmur, + irregularly irregular Abdomen: normal bowel sounds, non tender, soft, no organomegaly, no pulsatile mass Extremities: normal inspection, no pedal edema, no calf tenderness, + pedal edema (2+ B/L LE pitting edema) 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 paroxysmal atrial fibrillation has had previous episode unfortunately, INR subtherapeutic ELEANOR performed: no thrombus present in left atrial appendage successfully converted to sinus rhythm will plan on starting po amio upon arrival to floor to maintain sinus rhythm will start amiodarone 400mg po TID for now and titrate down cont heparin bridge, INR today of 1.4, coumadin restarted 2. LE edema chronic does have a [place] filter that was placed in 2005 would recommend further evaluation of filter as possible AM lasix held due to relative hypotension ok to resume cont to monitor on tele daily EKG's
--- NOTE | 2017-11-19 13:26 | TEE ---
*NOTICE TO RECEIVING [employer] This information is strictly Confidential and protected under [place] law. [place] law prohibits you from making any further disclosure of this information unless further disclosure is expressly permitted by the written consent of the person to whom it pertains or is authorized by law. A general authorization for the release of medical or other information is not sufficient for this purpose. Hospital accepts no responsibility if the information is made available to any other person, INCLUDING THE PATIENT. Interpretation Summary * Name: NERI HAMPTON Study Date: 11/19/2017 11:22 AM * Patient Location: C.2T\S\E218\S\1 HR: 113 * : 1935 (M/d/yyyy) Gender: Female Height: 69 in * Age: 82 yrs Ethnicity: [place] Weight: 257 lb * Ordering Physician: Edwar Blanco * Referring Physician: Kike Albrecht * Performed By: Yayo Crane RCS * * Reason For Study: A-FIB, Pre C/V * BSA: 2.3 m2 * -- Conclusions -- * No thrombus present within the left atrial appendage. * Smoke present in the left atrium. Procedure Details * ELEANOR Probe #2 utilized for procedure. * The study was performed in Cardiopulmonary Department. * Time out was conducted by the physician, nurse, and customer service technician with positive identification of patient and procedure. * Informed consent for Transesophageal Echocardiogram was obtained prior to the procedure. * An intravenous line was placed. A topical anesthetic agent was used for oropharangeal anesthesia. A bite block was inserted. * The patient's vital signs, including blood pressure, heart rate, pulse oximetry and cardiac rhythm were monitored throughout the procedure . * Fentanyl 50 mcg was administered for procedural sedation. * Robinul .4 mg administered for to reduce oral secretions. * Midazolam 3 mg administered for sedation. * A multifrequency, multiplane transesopheageal echocardiographic endoscope was inserted and manipulated in the standard fashion to achieve multiplane views. * The transesophageal probe was passed without difficulty. * Limited views were obtained. * The patient tolerated the procedure well without evidence of orophangeal or esophageal trauma. * A 2D transesophageal echocardiogram was performed. * A 2D transesophageal echocardiogram with color flow Doppler was performed. * A 2D transesophageal echocardiogram with Doppler and color flow Doppler was performed.
[2017-11-19 13:48] LABS: PTT PATIENT 45.3 SECONDS (21.0-31.0)
[2017-11-19] MEDS ORDERED: HEPARIN IV BOLUS 3,000 UNIT in SYRINGE 0 ML IV STA (14:05)
[2017-11-19] MEDS: AMIODARONE 200 MG TAB PO SCH ×2 (14:07→20:09)
[2017-11-19] MEDS: WARFARIN SOD 5 MG TAB PO SCH (15:38)
[2017-11-19] MEDS: ATORVASTATIN 10 MG TAB PO SCH (20:10)
[2017-11-19 20:35] LABS: PTT PATIENT 76.7 SECONDS (21.0-31.0)
[2017-11-20 02:39] VITALS: BP 128/78; PULSE 86; TEMP 36.9; O2SAT 92
[2017-11-20 03:36] LABS: HEMATOCRIT 36.8 % (37-47); HEMOGLOBIN 11.7 g/dL (12.0-16.0); MEAN CORPUSCULAR HEMOGLOBIN 28.6 pg (25-34); MEAN CORPUSCULAR HGB CONC 31.8 g/dl (32-36); MEAN PLATELET VOLUME 10.5 fL (7.4-10.4); PLATELET COUNT 244 K/uL (130-400); RED CELL DISTRIBUTION WIDTH SD 49.8 fL (36.4-46.3)
[2017-11-20 03:52] LABS: INR 1.2 (0.9-1.1)
[2017-11-20 03:53] LABS: CALCIUM 8.4 mg/dl (8.5-10.1); CREATININE 1.11 mg/dl (0.60-1.20)
[2017-11-20 04:02] LABS: PTT PATIENT 69.2 SECONDS (21.0-31.0)
[2017-11-20] MEDS: SODIUM CHLORIDE 0.9% 1000ML 1,000 ML IV SCH ×2 (05:57→11:40)
[2017-11-20 07:46] VITALS: BP 118/76; PULSE 74; TEMP 36.8; O2SAT 91
[2017-11-20] MEDS: AMIODARONE 200 MG TAB PO SCH ×3 (08:46→19:40)
[2017-11-20] MEDS: FUROSEMIDE INJ 40 MG in SYRINGE 0 ML IV SCH ×2 (08:46→16:01)
[2017-11-20] MEDS: PANTOprazole SOD 40 MG TAB PO SCH (08:47)
[2017-11-20] MEDS: POTASSIUM CHLORIDE 10 MEQ TABCR PO SCH ×2 (08:47→19:40)
[2017-11-20] MEDS: METOPROLOL SUCC 25MG EXT REL TAB PO SCH (08:48)
[2017-11-20] MEDS: LISINOPRIL 20 MG TAB PO SCH (08:48)
[2017-11-20] MEDS: PREGABALIN 50 MG CAP PO SCH ×2 (08:50→19:40)
[2017-11-20] MEDS: HEPARIN 25,000 UNIT/500ML D5W 500 ML IV PRN (08:55)
[2017-11-20 11:24] VITALS: BP 107/69; PULSE 76; TEMP 36.4; O2SAT 92
--- NOTE | 2017-11-20 13:14 | Cardiology Follow-Up ---
Subjective Subjective Date of Service: Nov 20, 2017. Pt evaluation today including: conversation w/ patient, physical exam, chart review, lab review, review of studies, review of inpatient medication list Additional Details: Pt seen and examined, states that she feels well. Denies cp, sob, palpitations, lightheadedness or dizziness. Tele reviewed: sinus rhythm without recurrence of afib, occasional PAC's. Problem List Medical Problems: (1) Atrial fibrillation with RVR Status: Acute (2) CHF (congestive heart failure) Status: Acute (3) GI bleed Status: Acute (4) Rapid atrial fibrillation Status: Acute Review of Systems Respiratory: + dyspnea on exertion, No see HPI, No cough, No sputum, No wheezing, No shortness of breath, No dyspnea at rest, No hemoptysis, No problem reported Cardiac: + edema, No see HPI, No chest pain, No orthopnea, No PND, No claudication, No palpitations, No problem reported Endo: + fatigue Objective Vital Signs Last Vital Signs Documentation Date Time Temp Pulse Resp B/P (MAP) Pulse Ox O2 Delivery O2 Flow Rate FiO2 11/20/17 12:00 Room Air 11/20/17 11:24 36.4 76 18 107/69 (82) 92 11/20/17 04:09 2.0 Physical Exam: General Appearance: WD/WN, no apparent distress Eyes: bilateral eyes normal inspection, bilateral eyes PERRL, bilateral eyes EOMI ENT: normal ENT inspection, hearing grossly normal, TMs normal, pharynx normal Neck: supple, no adenopathy, thyroid normal, no JVD, no carotid bruits, trachea midline Respiratory/Chest: chest non-tender, lungs clear, normal breath sounds, no respiratory distress, no accessory muscle use Cardiovascular: regular rate, rhythm, no edema, no JVD, no murmur, + gallop/S4 Abdomen: normal bowel sounds, non tender, soft, no organomegaly, no pulsatile mass Extremities: normal inspection, no pedal edema, no calf tenderness, + pedal edema (2+ B/L LE pitting edema) 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 paroxysmal atrial fibrillation s/p successful ELEANOR/CV started on amiodarone, will cont with 400mg TID today on 11/21 will change to 400mg bid, can be d/c'ed to home on that dose/ frequency for one week after 1 week can decrease to 400mg daily cont coumadin, unfortunately, INR of 1.2 today, would like to see it atleast trending back to therapeutic before discharge will likely increase quickly now with addition of amiodarone 2. LE edema chronic does have a [place] filter that was placed in 2005 would recommend further evaluation of filter as possible AM lasix held due to relative hypotension ok to resume cont to monitor on tele daily EKG's
[2017-11-20] MEDS: WARFARIN SOD 5 MG TAB PO SCH (16:00)
[2017-11-20] MEDS ORDERED: NURSING VERBAL MED ORDER ONE (16:15)
[2017-11-20 16:30] VITALS: BP 110/72; PULSE 65; TEMP 36.5; O2SAT 95
--- NOTE | 2017-11-20 17:46 | Progress Note ---
Internal Med Progress Note Date of Service: Nov 20, 2017. Provider Documentation: SUBJECTIVE: resting comfortably s/p cardioversion yesterday afebrile denies chest pain or sob no nausea no other complaints OBJECTIVE: Vital Signs-as noted below Exam: General-alert and Oriented. Not in distress. ENT-Normal hearing Neck-no neck masses Lungs-cta b/l no wheezing or crackles Heart-s1 and s2 heard irregular no murmurs Abdomen-soft bowel sounds present non tender no distension Extremities-b/l lower extremity gross edema present and mild erythema Neuro-alert and awake moves extremities Lab data as noted below. ASSESSMENT & PLAN: RECURRENT ATRIAL FIBRILLATION History of PAF associated with pulmonary embolism in July 2017. currently on Cardizem drip home Toprol xl on iv heparin as inr subtherapeutic on Coumadin' s/p ELEANOR and cardioversion yesterday amiodarone as per cardiology stable await inr to be therapeutic CHF Acute on chronic left ventricular diastolic CHF. Chest x-ray now shows cardiomegaly and pulmonary vascular congestion. Worsening lower extremity edema. on Lasix 20mg bid at home which is held now started on furosemide to 40 mg IV BID will hold if sbp drops or renal function deteriorates. i/o's daily weights continue same will monitor HYPERTENSION on metoprolol and lisinopril. will monitor CKD III Serum creatinine 1.21. Will monitor while on IV diuretic therapy. Cr 1.0 today GERD Continue PPI. DYSLIPIDEMIA Continue atorvastatin. VTE PROPHYLAXIS / HISTORY OF PE & DVT on iv heparin and Coumadin RESUSCITATION STATUS Level 1 as per admission DISPOSITION monitor in tele to be determined ambulate in [address] Vital Signs: Date Time Temp Pulse Resp B/P (MAP) Pulse Ox O2 Delivery O2 Flow Rate FiO2 11/20/17 16:30 36.5 65 16 110/72 (85) 95 Room Air 11/20/17 16:00 Room Air 11/20/17 12:00 Room Air 11/20/17 11:24 36.4 76 18 107/69 (82) 92 Room Air 11/20/17 08:00 Room Air 11/20/17 07:46 36.8 74 18 118/76 (90) 91 Room Air 11/20/17 04:09 Nasal Cannula 2.0 11/20/17 02:39 36.9 86 19 128/78 (95) 92 Room Air 11/20/17 00:00 Nasal Cannula 2.0 11/19/17 23:15 36.8 99 18 119/76 (90) 92 Room Air 11/19/17 20:46 36.8 79 18 108/67 (81) 96 Nasal Cannula 2.0 11/19/17 20:00 Nasal Cannula 2.0 Lab Results: Results Past 24 Hours Test 11/19/17 19:57 11/20/17 03:00 Range/Units Activated Partial Thromboplast Time 76.7 69.2 21.0-31.0 SECONDS Partial Thromboplastin Ratio 3.0 2.7 White Blood Count 5.00 4.8-10.8 K/uL Red Blood Count 4.09 4.2-5.4 M/uL Hemoglobin 11.7 12.0-16.0 g/dL Hematocrit 36.8 37-47 % Mean Corpuscular Volume 90.0 80-100 fL Mean Corpuscular Hemoglobin 28.6 25-34 pg Mean Corpuscular Hemoglobin Concent 31.8 32-36 g/dl RDW Standard Deviation 49.8 36.4-46.3 fL RDW Coefficient of Variation 15.0 11.5-14.5 % Platelet Count 244 130-400 K/uL Mean Platelet Volume 10.5 7.4-10.4 fL Prothrombin Time 12.5 9.0-12.0 SECONDS Prothromb Time International Ratio 1.2 0.9-1.1 Sodium Level 144 136-145 mmol/L Potassium Level 4.0 3.5-5.1 mmol/L Chloride Level 109 98-107 mmol/L Carbon Dioxide Level 27 21-32 mmol/L Anion Gap 8.0 3-11 mmol/L Blood Urea Nitrogen 17 7-18 mg/dl Creatinine 1.11 0.60-1.20 mg/dl Est Creatinine Clear Calc Drug Dose 51.6 ml/min Estimated GFR () 53.2 Estimated GFR (Non- 45.9 BUN/Creatinine Ratio 15.0 10-20 Random Glucose 104 70-99 mg/dl Calcium Level 8.4 8.5-10.1 mg/dl
[2017-11-20] MEDS: ATORVASTATIN 10 MG TAB PO SCH (19:40)
[2017-11-20 19:56] VITALS: BP 112/71; PULSE 67; TEMP 36.9; O2SAT 94
[2017-11-20 23:20] VITALS: BP 123/78; PULSE 72; TEMP 37; O2SAT 95
[2017-11-21 03:48] VITALS: BP 134/84; PULSE 91; TEMP 37.5; O2SAT 94
[2017-11-21] MEDS: HEPARIN 25,000 UNIT/500ML D5W 500 ML IV PRN ×2 (04:03→20:21)
--- NOTE | 2017-11-21 06:33 | DIAGNOSTIC IMAGING REPORT ---
(INF VENA CAVA) RETROPERI LTD CLINICAL HISTORY: 82 years-old Female presenting with to check deanna filter. TECHNIQUE: Real-time grayscale ultrasound imaging of the inferior vena cava was performed for a focused evaluation at the site of clinical concern. Color and spectral Doppler were also performed. COMPARISON: CTA chest from 07/22/2017. FINDINGS: Visualized portions of the inferior vena cava patent from the infrahepatic portion to the infrarenal portion. Normal venous waveforms. The IVC filter is not depicted. This may be related to technical factors. IMPRESSION: 1. Patent IVC. Nonvisualization of the IVC filter. Radiograph could be considered for better detection. Electronically signed by: Rupert Donald M.D. 11/21/2017 6:32 AM Dictated Date/Time: 11/21/2017 6:30 AM
[2017-11-21 07:44] VITALS: BP 115/65; PULSE 48; TEMP 37.5; O2SAT 91
[2017-11-21] MEDS: AMIODARONE 200 MG TAB PO SCH ×3 (08:19→20:11)
[2017-11-21] MEDS: FUROSEMIDE INJ 40 MG in SYRINGE 0 ML IV SCH (08:28)
[2017-11-21] MEDS: POTASSIUM CHLORIDE 10 MEQ TABCR PO SCH ×2 (08:28→20:11)
[2017-11-21] MEDS: PANTOprazole SOD 40 MG TAB PO SCH (08:29)
[2017-11-21] MEDS: METOPROLOL SUCC 25MG EXT REL TAB PO SCH (08:29)
[2017-11-21] MEDS: LISINOPRIL 20 MG TAB PO SCH (08:29)
[2017-11-21] MEDS: PREGABALIN 50 MG CAP PO SCH ×2 (08:32→20:11)
[2017-11-21 09:40] LABS: CALCIUM 8.2 mg/dl (8.5-10.1); CREATININE 1.22 mg/dl (0.60-1.20); INR 1.4 (0.9-1.1); POTASSIUM 3.4 mmol/L (3.5-5.1)
[2017-11-21] MEDS ORDERED: POTASSIUM CHLORIDE 20 MEQ TABCR PO STA (09:53)
[2017-11-21 10:00] LABS: PTT PATIENT 67.2 SECONDS (21.0-31.0)
[2017-11-21 11:33] VITALS: BP 131/75; PULSE 87; TEMP 37.2; O2SAT 94
--- NOTE | 2017-11-21 11:46 | Cardiology Follow-Up ---
Subjective Subjective Date of Service: Nov 21, 2017. Pt evaluation today including: conversation w/ patient, physical exam, chart review, lab review, review of studies, review of inpatient medication list Additional Details: The patient is an 82-year-old female who underwent a successful ELEANOR guided cardioversion. She is maintaining sinus rhythm. She has no new cardiac complaints today. Problem List Medical Problems: (1) Atrial fibrillation with RVR Status: Acute (2) CHF (congestive heart failure) Status: Acute (3) GI bleed Status: Acute (4) Rapid atrial fibrillation Status: Acute Review of Systems Respiratory: + dyspnea on exertion, No see HPI, No cough, No sputum, No wheezing, No shortness of breath, No dyspnea at rest, No hemoptysis, No problem reported Cardiac: + edema, No see HPI, No chest pain, No orthopnea, No PND, No claudication, No palpitations, No problem reported Endo: + fatigue Objective Vital Signs Last Vital Signs Documentation Date Time Temp Pulse Resp B/P (MAP) Pulse Ox O2 Delivery O2 Flow Rate FiO2 11/21/17 11:33 37.2 87 18 131/75 (93) 94 Room Air BiPAP 11/20/17 04:09 2.0 Physical Exam: General Appearance: WD/WN, no apparent distress Eyes: bilateral eyes normal inspection, bilateral eyes PERRL, bilateral eyes EOMI ENT: normal ENT inspection, hearing grossly normal, TMs normal, pharynx normal Neck: supple, no adenopathy, thyroid normal, no JVD, no carotid bruits, trachea midline Respiratory/Chest: chest non-tender, lungs clear, normal breath sounds, no respiratory distress, no accessory muscle use Cardiovascular: regular rate, rhythm, no edema, no JVD, no murmur, + gallop/S4 Abdomen: normal bowel sounds, non tender, soft, no organomegaly, no pulsatile mass Extremities: normal inspection, no calf tenderness, + pedal edema (improving) 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 Paroxysmal atrial fibrillation 2. Chronic lower extremity edema Recommendations: I reduce the patient's diuretics to 40 mg Lasix orally daily. I would continue with the amiodarone load. INR is still subtherapeutic. Medications: Current Inpatient Medications Medications (Trade) Dose Ordered Sig/Claire Route Start Time Stop Time Status Last Admin Dose Admin Heparin Sodium/ Dextrose 500 ml @ 28 mls/hr [id number] PRN IV 11/18/17 16:45 12/18/17 16:44 11/21/17 04:03 28 MLS/HR Acetaminophen (Tylenol Tab) 650 mg Q4H PRN PO 11/18/17 18:15 12/18/17 18:14 11/19/17 02:52 650 MG Atorvastatin Calcium (Lipitor Tab) 10 mg HS PO 11/19/17 21:00 12/19/17 20:59 11/20/17 19:40 10 MG Fluticasone Propionate (Flonase Nasal [place]) 2 sprays DAILY PRN DASHA 11/19/17 05:45 12/19/17 05:44 Lisinopril (Zestril Tab) 20 mg QAM PO 11/19/17 09:00 12/19/17 08:59 11/21/17 08:29 20 MG Metoprolol Succinate (Toprol Xl Tab) 25 mg QAM PO 11/19/17 09:00 12/19/17 08:59 11/21/17 08:29 25 MG Pantoprazole Sodium (Protonix Tab) 40 mg QAM PO 11/19/17 09:00 12/19/17 08:59 11/21/17 08:29 40 MG Potassium Chloride (Klor-Con M10) 10 meq BID PO 11/19/17 09:00 12/19/17 08:59 11/21/17 08:28 10 MEQ Pregabalin (Lyrica Cap) 50 mg BID PO 11/19/17 09:00 12/19/17 08:59 11/21/17 08:32 50 MG Tramadol HCl (Ultram Tab) 50 mg Q6H PRN PO 11/19/17 05:45 12/19/17 05:44 11/20/17 02:53 50 MG Warfarin Sodium (Coumadin Tab) 5 mg DAILY@1600 PO 11/19/17 16:00 12/19/17 15:59 11/20/17 16:00 5 MG Amiodarone HCl (Cordarone Tab) 400 mg TID PO 11/19/17 14:00 12/19/17 13:59 11/21/17 08:19 400 MG Lab Results: Last 24 Hours Test 11/21/17 08:30 Prothrombin Time 14.6 SECONDS Prothromb Time International Ratio 1.4 Activated Partial Thromboplast Time 67.2 SECONDS Partial Thromboplastin Ratio 2.6 Sodium Level 142 mmol/L Potassium Level 3.4 mmol/L Chloride Level 106 mmol/L Carbon Dioxide Level 28 mmol/L Anion Gap 8.0 mmol/L Blood Urea Nitrogen 15 mg/dl Creatinine 1.22 mg/dl Est Creatinine Clear Calc Drug Dose 46.6 ml/min Estimated GFR () 47.4 Estimated GFR (Non- 40.9 BUN/Creatinine Ratio 12.4 Random Glucose 145 mg/dl Calcium Level 8.2 mg/dl
[2017-11-21 15:08] VITALS: BP 102/63; PULSE 79; TEMP 37.2; O2SAT 92
[2017-11-21] MEDS: WARFARIN SOD 5 MG TAB PO SCH (16:24)
--- NOTE | 2017-11-21 17:51 | Progress Note ---
Internal Med Progress Note Date of Service: Nov 21, 2017. Provider Documentation: SUBJECTIVE: says feeling tired denies chest pain or sob no palpitations eating ok' no nausea denies any other complaints OBJECTIVE: Vital Signs-as noted below Exam: General-alert and Oriented. Not in distress. ENT-Normal hearing Neck-no neck masses Lungs-cta b/l no wheezing or crackles Heart-s1 and s2 heard irregular no murmurs Abdomen-soft bowel sounds present non tender no distension Extremities-b/l lower extremity gross edema present and mild erythema Neuro-alert and awake moves extremities Lab data as noted below. ASSESSMENT & PLAN: RECURRENT ATRIAL FIBRILLATION History of PAF associated with pulmonary embolism in July 2017. currently on Cardizem drip home Toprol xl on iv heparin as inr subtherapeutic on Coumadin' s/p ELEANOR and cardioversion 11/19/17 amiodarone as per cardiology stable await inr to be therapeutic. Inr 1.4 today CHF Acute on chronic left ventricular diastolic CHF. Chest x-ray now shows cardiomegaly and pulmonary vascular congestion. Worsening lower extremity edema. on Lasix 20mg bid at home which is held now started on furosemide to 40 mg IV BID will hold if sbp drops or renal function deteriorates. i/o's daily weights changed Lasix to 40mg daily. HYPERTENSION on metoprolol and lisinopril. will monitor CKD III Serum creatinine 1.21. Will monitor while on IV diuretic therapy. Cr 1.0 today GERD Continue PPI. DYSLIPIDEMIA Continue atorvastatin. VTE PROPHYLAXIS / HISTORY OF PE & DVT on iv heparin and Coumadin RESUSCITATION STATUS Level 1 as per admission DISPOSITION monitor in tele to be determined ambulate in [address] Vital Signs: Date Time Temp Pulse Resp B/P (MAP) Pulse Ox O2 Delivery O2 Flow Rate FiO2 11/21/17 16:00 Room Air 11/21/17 15:08 37.2 79 20 102/63 (76) 92 Room Air 11/21/17 12:00 Room Air 11/21/17 11:33 37.2 87 18 131/75 (93) 94 Room Air BiPAP 11/21/17 08:00 Room Air 11/21/17 07:44 37.5 48 20 115/65 (82) 91 Room Air 11/21/17 04:05 Room Air 11/21/17 03:48 37.5 91 18 134/84 (101) 94 Room Air 11/21/17 00:00 Room Air 11/20/17 23:20 37.0 72 18 123/78 (93) 95 Room Air 11/20/17 20:00 Room Air 11/20/17 19:56 36.9 67 18 112/71 (85) 94 Room Air Lab Results: Results Past 24 Hours Test 11/21/17 08:30 Range/Units Prothrombin Time 14.6 9.0-12.0 SECONDS Prothromb Time International Ratio 1.4 0.9-1.1 Activated Partial Thromboplast Time 67.2 21.0-31.0 SECONDS Partial Thromboplastin Ratio 2.6 Sodium Level 142 136-145 mmol/L Potassium Level 3.4 3.5-5.1 mmol/L Chloride Level 106 98-107 mmol/L Carbon Dioxide Level 28 21-32 mmol/L Anion Gap 8.0 3-11 mmol/L Blood Urea Nitrogen 15 7-18 mg/dl Creatinine 1.22 0.60-1.20 mg/dl Est Creatinine Clear Calc Drug Dose 46.6 ml/min Estimated GFR () 47.4 Estimated GFR (Non- 40.9 BUN/Creatinine Ratio 12.4 10-20 Random Glucose 145 70-99 mg/dl Calcium Level 8.2 8.5-10.1 mg/dl
[2017-11-21 19:05] VITALS: BP 90/47; PULSE 76; TEMP 36.9; O2SAT 91
[2017-11-21 20:05] VITALS: BP 101/58
[2017-11-21] MEDS: ATORVASTATIN 10 MG TAB PO SCH (20:11)
[2017-11-22] VITALS (7 sets, daily range): BP systolic 114–144; BP diastolic 65–78; PULSE 74–90; TEMP 36.9–37.3; O2SAT 92–95
[2017-11-22 07:15] LABS: HEMATOCRIT 34.2 % (37-47); HEMOGLOBIN 11.1 g/dL (12.0-16.0); MEAN CELL VOLUME 88.8 fL (80-100); MEAN CORPUSCULAR HEMOGLOBIN 28.8 pg (25-34); MEAN CORPUSCULAR HGB CONC 32.5 g/dl (32-36); MEAN PLATELET VOLUME 10.7 fL (7.4-10.4); PLATELET COUNT 160 K/uL (130-400); RED CELL DISTRIBUTION WIDTH CV 15.2 % (11.5-14.5); RED CELL DISTRIBUTION WIDTH SD 49.3 fL (36.4-46.3); WHITE BLOOD COUNT 4.67 K/uL (4.8-10.8)
[2017-11-22 07:34] LABS: INR 1.5 (0.9-1.1)
[2017-11-22 07:54] LABS: CALCIUM 8.1 mg/dl (8.5-10.1); CREATININE 1.15 mg/dl (0.60-1.20); POTASSIUM 3.7 mmol/L (3.5-5.1)
[2017-11-22 07:57] LABS: PTT PATIENT 95.1 SECONDS (21.0-31.0)
[2017-11-22] MEDS: AMIODARONE 200 MG TAB PO SCH ×2 (08:17→19:37)
[2017-11-22] MEDS: POTASSIUM CHLORIDE 10 MEQ TABCR PO SCH ×2 (08:17→19:37)
[2017-11-22] MEDS: LISINOPRIL 20 MG TAB PO SCH (08:18)
[2017-11-22] MEDS: PANTOprazole SOD 40 MG TAB PO SCH (08:18)
[2017-11-22] MEDS: METOPROLOL SUCC 25MG EXT REL TAB PO SCH (08:18)
[2017-11-22] MEDS: FUROSEMIDE 40 MG TAB PO SCH (08:18)
[2017-11-22] MEDS: PREGABALIN 50 MG CAP PO SCH ×2 (08:20→19:36)
--- NOTE | 2017-11-22 11:07 | Progress Note ---
Internal Med Progress Note Date of Service: Nov 22, 2017. Provider Documentation: SUBJECTIVE: didn't sleep well last night has some sob but says at her baseline denies chest pain no nausea ambulated ok no cough eating ok OBJECTIVE: Vital Signs-as noted below Exam: General-alert and Oriented. Not in distress. ENT-Normal hearing Neck-no neck masses Lungs-cta b/l no wheezing or crackles Heart-s1 and s2 heard irregular no murmurs Abdomen-soft bowel sounds present non tender no distension Extremities-b/l lower extremity gross edema present and mild erythema Neuro-alert and awake moves extremities Lab data as noted below. ASSESSMENT & PLAN: RECURRENT ATRIAL FIBRILLATION History of PAF associated with pulmonary embolism in July 2017. currently on Cardizem drip home Toprol xl on iv heparin as inr subtherapeutic on Coumadin' s/p ELEANOR and cardioversion 11/19/17 amiodarone as per cardiology stable await inr to be therapeutic. Inr 1.5 today CHF Acute on chronic left ventricular diastolic CHF. Chest x-ray now shows cardiomegaly and pulmonary vascular congestion. Worsening lower extremity edema. on Lasix 20mg bid at home which is held now started on furosemide to 40 mg IV BID will hold if sbp drops or renal function deteriorates. i/o's daily weights changed Lasix to 40mg daily. will monitor HYPERTENSION on metoprolol and lisinopril. will monitor CKD III Serum creatinine 1.21. Will monitor while on IV diuretic therapy. Cr 1.0 today GERD Continue PPI. DYSLIPIDEMIA Continue atorvastatin. VTE PROPHYLAXIS / HISTORY OF PE & DVT on iv heparin and Coumadin RESUSCITATION STATUS Level 1 as per admission DISPOSITION monitor in tele to be determined ambulate in [address] Vital Signs: Date Time Temp Pulse Resp B/P (MAP) Pulse Ox O2 Delivery O2 Flow Rate FiO2 11/22/17 08:00 Room Air 11/22/17 07:49 37.1 87 22 135/75 (95) 95 Nasal Cannula 2.0 11/22/17 04:00 36.9 90 22 122/76 (91) 92 Nasal Cannula 2.0 11/22/17 04:00 Nasal Cannula 2.0 11/22/17 00:00 37.3 74 22 120/70 (87) 95 Nasal Cannula 2.0 11/22/17 00:00 Nasal Cannula 2.0 11/21/17 20:05 101/58 (72) 3/3/18 20:00 Nasal Cannula 2.0 11/21/17 19:05 36.9 76 22 90/47 (61) 91 Room Air 11/21/17 16:00 Room Air 11/21/17 15:08 37.2 79 20 102/63 (76) 92 Room Air 11/21/17 12:00 Room Air 11/21/17 11:33 37.2 87 18 131/75 (93) 94 Room Air BiPAP Lab Results: Results Past 24 Hours Test 11/22/17 06:45 Range/Units White Blood Count 4.67 4.8-10.8 K/uL Red Blood Count 3.85 4.2-5.4 M/uL Hemoglobin 11.1 12.0-16.0 g/dL Hematocrit 34.2 37-47 % Mean Corpuscular Volume 88.8 80-100 fL Mean Corpuscular Hemoglobin 28.8 25-34 pg Mean Corpuscular Hemoglobin Concent 32.5 32-36 g/dl RDW Standard Deviation 49.3 36.4-46.3 fL RDW Coefficient of Variation 15.2 11.5-14.5 % Platelet Count 160 130-400 K/uL Mean Platelet Volume 10.7 7.4-10.4 fL Prothrombin Time 15.2 9.0-12.0 SECONDS Prothromb Time International Ratio 1.5 0.9-1.1 Activated Partial Thromboplast Time 95.1 21.0-31.0 SECONDS Partial Thromboplastin Ratio 3.7 Sodium Level 142 136-145 mmol/L Potassium Level 3.7 3.5-5.1 mmol/L Chloride Level 106 98-107 mmol/L Carbon Dioxide Level 30 21-32 mmol/L Anion Gap 6.0 3-11 mmol/L Blood Urea Nitrogen 16 7-18 mg/dl Creatinine 1.15 0.60-1.20 mg/dl Est Creatinine Clear Calc Drug Dose 49.2 ml/min Estimated GFR () 51.0 Estimated GFR (Non- 44.0 BUN/Creatinine Ratio 13.9 10-20 Random Glucose 91 70-99 mg/dl Calcium Level 8.1 8.5-10.1 mg/dl
--- NOTE | 2017-11-22 11:27 | Cardiology Follow-Up ---
Subjective Subjective Date of Service: Nov 22, 2017. Pt evaluation today including: conversation w/ patient, physical exam, chart review, lab review, review of studies, review of inpatient medication list Additional Details: The patient had an uneventful night. Her INR still remains subtherapeutic and she continues to be on IV heparin while she is loaded with Coumadin. She is maintaining sinus rhythm. Problem List Medical Problems: (1) Atrial fibrillation with RVR Status: Acute (2) CHF (congestive heart failure) Status: Acute (3) GI bleed Status: Acute (4) Rapid atrial fibrillation Status: Acute Review of Systems Respiratory: + dyspnea on exertion, No see HPI, No cough, No sputum, No wheezing, No shortness of breath, No dyspnea at rest, No hemoptysis, No problem reported Cardiac: + edema, No see HPI, No chest pain, No orthopnea, No PND, No claudication, No palpitations, No problem reported Endo: + fatigue Objective Vital Signs Last Vital Signs Documentation Date Time Temp Pulse Resp B/P (MAP) Pulse Ox O2 Delivery O2 Flow Rate FiO2 11/22/17 08:00 Room Air 11/22/17 07:49 37.1 87 22 135/75 (95 95 2.0 Physical Exam: General Appearance: WD/WN, no apparent distress Eyes: bilateral eyes normal inspection, bilateral eyes PERRL, bilateral eyes EOMI ENT: normal ENT inspection, hearing grossly normal, TMs normal, pharynx normal Neck: supple, no adenopathy, thyroid normal, no JVD, no carotid bruits, trachea midline Respiratory/Chest: chest non-tender, lungs clear, normal breath sounds, no respiratory distress, no accessory muscle use Cardiovascular: regular rate, rhythm, no edema, no JVD, no murmur, + gallop/S4 Abdomen: normal bowel sounds, non tender, soft, no organomegaly, no pulsatile mass Extremities: normal inspection, no calf tenderness, + pedal edema (improving) 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 Paroxysmal atrial fibrillation 2. Chronic lower extremity edema Recommendations: The patient is tolerating her amiodarone load and today I will decrease the dosage to 400 mg twice daily. Her INR still remains subtherapeutic. Medications: Current Inpatient Medications Medications (Trade) Dose Ordered Sig/Claire Route Start Time Stop Time Status Last Admin Dose Admin Heparin Sodium/ Dextrose 500 ml @ 25 mls/hr Q20H PRN IV 11/18/17 16:45 12/18/17 16:44 11/21/17 20:21 28 MLS/HR Acetaminophen (Tylenol Tab) 650 mg Q4H PRN PO 11/18/17 18:15 12/18/17 18:14 11/19/17 02:52 650 MG Atorvastatin Calcium (Lipitor Tab) 10 mg HS PO 11/19/17 21:00 12/19/17 20:59 11/21/17 20:11 10 MG Fluticasone Propionate (Flonase Nasal [place]) 2 sprays DAILY PRN DASHA 11/19/17 05:45 12/19/17 05:44 Lisinopril (Zestril Tab) 20 mg QAM PO 11/19/17 09:00 12/19/17 08:59 11/22/17 08:18 20 MG Metoprolol Succinate (Toprol Xl Tab) 25 mg QAM PO 11/19/17 09:00 12/19/17 08:59 11/22/17 08:18 25 MG Pantoprazole Sodium (Protonix Tab) 40 mg QAM PO 11/19/17 09:00 12/19/17 08:59 11/22/17 08:18 40 MG Potassium Chloride (Klor-Con M10) 10 meq BID PO 11/19/17 09:00 12/19/17 08:59 11/22/17 08:17 10 MEQ Pregabalin (Lyrica Cap) 50 mg BID PO 11/19/17 09:00 12/19/17 08:59 11/22/17 08:20 50 MG Tramadol HCl (Ultram Tab) 50 mg Q6H PRN PO 11/19/17 05:45 12/19/17 05:44 11/20/17 02:53 50 MG Warfarin Sodium (Coumadin Tab) 5 mg DAILY@1600 PO 11/19/17 16:00 12/19/17 15:59 11/21/17 16:24 5 MG Furosemide (Lasix Tab) 40 mg QAM PO 11/22/17 09:00 12/22/17 08:59 11/22/17 08:18 40 MG Amiodarone HCl (Cordarone Tab) 400 mg BID PO 11/22/17 21:00 12/19/17 13:59 UNV Lab Results: Last 24 Hours Test 11/22/17 06:45 White Blood Count 4.67 K/uL Red Blood Count 3.85 M/uL Hemoglobin 11.1 g/dL Hematocrit 34.2 % Mean Corpuscular Volume 88.8 fL Mean Corpuscular Hemoglobin 28.8 pg Mean Corpuscular Hemoglobin Concent 32.5 g/dl RDW Standard Deviation 49.3 fL RDW Coefficient of Variation 15.2 % Platelet Count 160 K/uL Mean Platelet Volume 10.7 fL Prothrombin Time 15.2 SECONDS Prothromb Time International Ratio 1.5 Activated Partial Thromboplast Time 95.1 SECONDS Partial Thromboplastin Ratio 3.7 Sodium Level 142 mmol/L Potassium Level 3.7 mmol/L Chloride Level 106 mmol/L Carbon Dioxide Level 30 mmol/L Anion Gap 6.0 mmol/L Blood Urea Nitrogen 16 mg/dl Creatinine 1.15 mg/dl Est Creatinine Clear Calc Drug Dose 49.2 ml/min Estimated GFR () 51.0 Estimated GFR (Non- 44.0 BUN/Creatinine Ratio 13.9 Random Glucose 91 mg/dl Calcium Level 8.1 mg/dl
[2017-11-22 15:27] LABS: PTT PATIENT 84.2 SECONDS (21.0-31.0)
[2017-11-22] MEDS: WARFARIN SOD 5 MG TAB PO SCH (16:14)
[2017-11-22] MEDS ORDERED: WARFARIN SOD 1 MG TAB PO ONE (19:00)
[2017-11-22] MEDS: ATORVASTATIN 10 MG TAB PO SCH (19:37)
[2017-11-22] MEDS: HEPARIN 25,000 UNIT/500ML D5W 500 ML IV PRN (22:48)
[2017-11-23] VITALS (12 sets, daily range): BP systolic 92–148; BP diastolic 54–84; PULSE 54–131; TEMP 36.5–37.3; O2SAT 91–96
[2017-11-23] MEDS: AMIODARONE 200 MG TAB PO SCH ×3 (07:43→20:30)
[2017-11-23] MEDS: POTASSIUM CHLORIDE 10 MEQ TABCR PO SCH ×2 (07:44→20:30)
[2017-11-23] MEDS: PANTOprazole SOD 40 MG TAB PO SCH (07:44)
[2017-11-23] MEDS: FUROSEMIDE 40 MG TAB PO SCH (07:44)
[2017-11-23] MEDS: METOPROLOL SUCC 25MG EXT REL TAB PO SCH ×2 (07:45→20:31)
[2017-11-23] MEDS: LISINOPRIL 20 MG TAB PO SCH (07:45)
[2017-11-23 07:49] LABS: INR 1.5 (0.9-1.1)
[2017-11-23 07:54] LABS: CALCIUM 7.9 mg/dl (8.5-10.1); CREATININE 1.09 mg/dl (0.60-1.20); POTASSIUM 3.7 mmol/L (3.5-5.1)
[2017-11-23] MEDS: PREGABALIN 50 MG CAP PO SCH ×2 (07:56→20:30)
[2017-11-23 07:57] LABS: PTT PATIENT 75.1 SECONDS (21.0-31.0)
[2017-11-23] MEDS: HEPARIN 25,000 UNIT/500ML D5W 500 ML IV PRN ×2 (08:35→19:26)
--- NOTE | 2017-11-23 09:05 | DIAGNOSTIC IMAGING REPORT ---
CHEST ONE VIEW PORTABLE CLINICAL HISTORY: 82 years-old Female presenting with congestion/infiltrate. TECHNIQUE: Portable upright AP view of the chest was obtained. COMPARISON: 11/18/2017. FINDINGS: Atherosclerosis of the aortic arch. Cardiac silhouette normal in size. Pulmonary vascular prominence unchanged. Coarsened lung markings unchanged. No new focal opacity. No large effusion or pneumothorax. Scoliotic curvature of the spine. Suspected osteopenia. Calcification in the right breast again noted. Large hiatal hernia. IMPRESSION: 1. Suggestion of mild volume overload, unchanged. 2. No new focal infiltrate to suggest acute cardiopulmonary disease. 3. Large hiatal hernia. Electronically signed by: Rupert Donald M.D. 11/23/2017 9:04 AM Dictated Date/Time: 11/23/2017 9:02 AM
--- NOTE | 2017-11-23 09:34 | Progress Note ---
Internal Med Progress Note Date of Service: Nov 23, 2017. Provider Documentation: SUBJECTIVE: says last night had some sob having cough with sputum feeling weak and tired afebrile denies chest pain or palpitations no nausea or abdominal pain OBJECTIVE: Vital Signs-as noted below Exam: General-alert and Oriented. Not in distress. ENT-Normal hearing Neck-no neck masses Lungs-cta b/l no wheezing or crackles Heart-s1 and s2 heard irregular no murmurs Abdomen-soft bowel sounds present non tender no distension Extremities-b/l lower extremity gross edema present-improving and mild erythema Neuro-alert and awake moves extremities Lab data as noted below. ASSESSMENT & PLAN: 82yf presented with rapid afib and chf. s/p cardioversion. But agin in rapid afib today. amiodarone and metoprolol dose increased. restarted on iv lasix for sob and chf. RECURRENT ATRIAL FIBRILLATION History of PAF associated with pulmonary embolism in July 2017. was on Cardizem drip home Toprol xl on iv heparin as inr subtherapeutic on Coumadin' s/p ELEANOR and cardioversion 11/19/17 amiodarone as per cardiology currently on amiodarone 400mg bid and Toprol xl 25mg daily await inr to be therapeutic. Inr 1.5 today. will increase Coumadin to 7.5mg daily went in to a fib again today- amiodarone and toprl xl dose increased by cardio continue to monitor CHF Acute on chronic left ventricular diastolic CHF. Chest x-ray now shows cardiomegaly and pulmonary vascular congestion. Worsening lower extremity edema. on Lasix 20mg bid at home which is held now Was started on furosemide to 40 mg IV BID i/o's daily weights changed Lasix to 40mg daily yesterday today mild sob and volume overload on cxr. cardiology restarted on iv Lasix 40mg bid continue to monitor HYPERTENSION on metoprolol and lisinopril. will monitor CKD III Serum creatinine 1.21. Will monitor while on IV diuretic therapy. Cr 1.0 today GERD Continue PPI. DYSLIPIDEMIA Continue atorvastatin. VTE PROPHYLAXIS / HISTORY OF PE & DVT on iv heparin and Coumadin RESUSCITATION STATUS Level 1 as per admission DISPOSITION monitor in tele to be determined ambulate in [address] Vital Signs: Date Time Temp Pulse Resp B/P (MAP) Pulse Ox O2 Delivery O2 Flow Rate FiO2 11/23/17 18:34 85 99/54 (69) 11/23/17 16:00 96 Nasal Cannula 2.0 11/23/17 15:35 36.7 54 20 100/68 (79) 91 Room Air 11/23/17 13:21 130 118/74 (89) 11/23/17 12:00 96 Nasal Cannula 2.0 11/23/17 11:34 36.9 106 28 92/58 (69) 94 Nasal Cannula 2.0 11/23/17 08:00 95 Nasal Cannula 2.0 11/23/17 07:43 36.9 131 28 142/84 (103) 95 Nasal Cannula 2.0 11/23/17 07:08 122 24 123/83 (96) 91 Room Air 11/23/17 04:35 37.3 91 23 148/79 (102) 91 Room Air 11/23/17 04:00 Room Air 11/23/17 00:00 Room Air 11/22/17 23:15 37.1 81 22 144/65 (91) 92 Room Air 11/22/17 20:00 Room Air 11/22/17 19:35 37.1 82 22 127/70 (89) 93 Room Air Lab Results: Results Past 24 Hours Test 11/22/17 21:32 11/23/17 07:01 11/23/17 14:39 Range/Units Activated Partial Thromboplast Time 77.0 75.1 67.6 21.0-31.0 SECONDS Partial Thromboplastin Ratio 3.0 2.9 2.6 Prothrombin Time 16.1 9.0-12.0 SECONDS Prothromb Time International Ratio 1.5 0.9-1.1 Sodium Level 140 136-145 mmol/L Potassium Level 3.7 3.5-5.1 mmol/L Chloride Level 105 98-107 mmol/L Carbon Dioxide Level 30 21-32 mmol/L Anion Gap 5.0 3-11 mmol/L Blood Urea Nitrogen 16 7-18 mg/dl Creatinine 1.09 0.60-1.20 mg/dl Est Creatinine Clear Calc Drug Dose 51.3 ml/min Estimated GFR () 54.4 Estimated GFR (Non- 46.9 BUN/Creatinine Ratio 14.7 10-20 Random Glucose 94 70-99 mg/dl Calcium Level 7.9 8.5-10.1 mg/dl
[2017-11-23] MEDS ORDERED: FUROSEMIDE INJ 40 MG in SYRINGE 0 ML IV ONE (10:00)
[2017-11-23] MEDS ORDERED: POTASSIUM CHLORIDE 20 MEQ TABCR PO STA (12:43)
--- NOTE | 2017-11-23 12:48 | Cardiology Follow-Up ---
Subjective Subjective Date of Service: Nov 23, 2017. Pt evaluation today including: conversation w/ patient, conversation w/ family , physical exam, chart review, lab review, review of studies, conversation w/ aws consultant, review of inpatient medication list Additional Details: The patient earlier this morning developed atrial fibrillation with RVR. Her heart rates are in the 1201:30 range. She also has increased shortness of breath and tachypnea. Problem List Medical Problems: (1) Atrial fibrillation with RVR Status: Acute (2) CHF (congestive heart failure) Status: Acute (3) GI bleed Status: Acute (4) Rapid atrial fibrillation Status: Acute Review of Systems Respiratory: + dyspnea on exertion, No see HPI, No cough, No sputum, No wheezing, No shortness of breath, No dyspnea at rest, No hemoptysis, No problem reported Cardiac: + edema, No see HPI, No chest pain, No orthopnea, No PND, No claudication, No palpitations, No problem reported Endo: + fatigue Objective Vital Signs Last Vital Signs Documentation Date Time Temp Pulse Resp B/P (MAP) Pulse Ox O2 Delivery O2 Flow Rate FiO2 11/23/17 12:00 96 Nasal Cannula 2.0 11/23/17 11:34 36.9 106 28 92/58 (69) Physical Exam: General Appearance: WD/WN, no apparent distress Eyes: bilateral eyes normal inspection, bilateral eyes PERRL, bilateral eyes EOMI ENT: normal ENT inspection, hearing grossly normal, TMs normal, pharynx normal Neck: supple, no adenopathy, thyroid normal, no JVD, no carotid bruits, trachea midline Respiratory/Chest: + rales, + wheezing Cardiovascular: no edema, no murmur, + JVD, + gallop/S4, + irregularly irregular Abdomen: normal bowel sounds, non tender, soft, no organomegaly, no pulsatile mass Extremities: normal inspection, no calf tenderness, + pedal edema (improving) 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 Persistent atrial fibrillation with RVR 2. Congestive heart failure probably due to diastolic dysfunction and atrial fibrillation Recommendations: This patient had a transesophageal echocardiogram performed prior to cardioversion. The study was limited. I've ordered a full echocardiogram to evaluate LV function as well as for diastolic dysfunction. We have increased her Lasix. Yesterday I lowered her dose of amiodarone to twice a day and I will increase it to 400 mg 3 times a day today. I will also increase her metoprolol to better control her heart rates. I discussed the above with the patient and her family today. Currently she is comfortable and hemodynamically stable. Medications: Current Inpatient Medications Medications (Trade) Dose Ordered Sig/Claire Route Start Time Stop Time Status Last Admin Dose Admin Heparin Sodium/ Dextrose 500 ml @ 17 mls/hr Q24H PRN IV 11/18/17 16:45 12/18/17 16:44 11/23/17 08:35 17 MLS/HR Acetaminophen (Tylenol Tab) 650 mg Q4H PRN PO 11/18/17 18:15 12/18/17 18:14 11/19/17 02:52 650 MG Atorvastatin Calcium (Lipitor Tab) 10 mg HS PO 11/19/17 21:00 12/19/17 20:59 11/22/17 19:37 10 MG Fluticasone Propionate (Flonase Nasal [place]) 2 sprays DAILY PRN DASHA 11/19/17 05:45 12/19/17 05:44 Lisinopril (Zestril Tab) 20 mg QAM PO 11/19/17 09:00 12/19/17 08:59 11/23/17 07:45 20 MG Pantoprazole Sodium (Protonix Tab) 40 mg QAM PO 11/19/17 09:00 12/19/17 08:59 11/23/17 07:44 40 MG Potassium Chloride (Klor-Con M10) 10 meq BID PO 11/19/17 09:00 12/19/17 08:59 11/23/17 07:44 10 MEQ Pregabalin (Lyrica Cap) 50 mg BID PO 11/19/17 09:00 12/19/17 08:59 11/23/17 07:56 50 MG Tramadol HCl (Ultram Tab) 50 mg Q6H PRN PO 11/19/17 05:45 12/19/17 05:44 11/20/17 02:53 50 MG Furosemide (Lasix Tab) 40 mg QAM PO 11/22/17 09:00 12/22/17 08:59 11/23/17 07:44 40 MG Warfarin Sodium (Coumadin Tab) 7.5 mg DAILY@1600 PO 11/23/17 16:00 12/19/17 15:59 Amiodarone HCl (Cordarone Tab) 400 mg TID PO 11/23/17 14:00 12/19/17 13:59 UNV Metoprolol Succinate (Toprol Xl Tab) 25 mg BID PO 11/23/17 21:00 12/19/17 08:59 UNV Lab Results: Last 24 Hours Test 11/22/17 14:46 11/22/17 21:32 11/23/17 07:01 Activated Partial Thromboplast Time 84.2 SECONDS 77.0 SECONDS 75.1 SECONDS Partial Thromboplastin Ratio 3.2 3.0 2.9 Prothrombin Time 16.1 SECONDS Prothromb Time International Ratio 1.5 Sodium Level 140 mmol/L Potassium Level 3.7 mmol/L Chloride Level 105 mmol/L Carbon Dioxide Level 30 mmol/L Anion Gap 5.0 mmol/L Blood Urea Nitrogen 16 mg/dl Creatinine 1.09 mg/dl Est Creatinine Clear Calc Drug Dose 51.3 ml/min Estimated GFR () 54.4 Estimated GFR (Non- 46.9 BUN/Creatinine Ratio 14.7 Random Glucose 94 mg/dl Calcium Level 7.9 mg/dl
[2017-11-23 15:13] LABS: PTT PATIENT 67.6 SECONDS (21.0-31.0)
[2017-11-23] MEDS: FUROSEMIDE INJ 40 MG in SYRINGE 0 ML IV SCH (17:49)
[2017-11-23] MEDS: WARFARIN SOD 7.5 MG TAB PO SCH (17:50)
--- NOTE | 2017-11-23 18:51 | ECHOCARDIOGRAM REPORT ---
*NOTICE TO RECEIVING LIBERTARIAN AGENCY This information is strictly Confidential and protected under [place] law. [place] law prohibits you from making any further disclosure of this information unless further disclosure is expressly permitted by the written consent of the person to whom it pertains or is authorized by law. A general authorization for the release of medical or other information is not sufficient for this purpose. Hospital accepts no responsibility if the information is made available to any other person, INCLUDING THE PATIENT. Interpretation Summary * Conclusions -- * The patient is in atrial fibrillation during the study. * The left ventricle is normal in size. * There is moderate concentric left ventricular hypertrophy. * Ejection Fraction = 55-60%. * The right ventricular systolic function is normal. * The left atrium is moderately dilated. * The right atrium is moderately dilated. * There is moderate mitral regurgitation. Procedure Details * A complete two-dimensional transthoracic echocardiogram was performed (2D, M-mode, Doppler and color flow Doppler). Left Ventricle * The left ventricle is normal in size. * There is moderate concentric left ventricular hypertrophy. * Ejection Fraction = 55-60%. Right Ventricle * The right ventricle is normal size. * The right ventricular systolic function is normal. Atria * The left atrium is moderately dilated. * The right atrium is moderately dilated. * No ASD detected; PFO is not assessed. Mitral Valve * The mitral valve anatomy is normal. * There is moderate mitral regurgitation. Tricuspid Valve * The tricuspid valve anatomy is normal. * Significant tricuspid regurgitation is absent. Aortic Valve * The aortic valve is tricuspid. The leaflet thickness if normal. There is no aortic stenosis, and no significant insufficiency. * The aortic valve opens well. * There is no significant aortic regurgitation. Pulmonic Valve * The pulmonic valve is not well visualized. * There is no pulmonic valvular regurgitation. Pericardium/Pleural * There is no pericardial effusion. MMode 2D Measurements and Calculations IVSd 1.6 cm IVSs 2.0 cm LVIDd 4.5 cm LVIDs 2.9 cm LVPWd 1.4 cm LVPWs 1.5 cm IVS/LVPW 1.2 FS 36.0 % EDV(Teich) 94.7 ml ESV(Teich) 32.4 ml EF(Teich) 65.7 % EDV(cubed) 93.9 ml ESV(cubed) 24.6 ml EF(cubed) 73.8 % % IVS thick 18.9 % % LVPW thick 6.8 % LV mass(C)d 288.9 grams LV mass(C)dI 129.9 grams/m\S\2 LV mass(C)s 195.9 grams LV mass(C)sI 88.1 grams/m\S\2 SV(Teich) 62.2 ml SI(Teich) 28.0 ml/m\S\2 SV(cubed) 69.3 ml SI(cubed) 31.2 ml/m\S\2 Ao root diam 3.5 cm Ao root area 9.6 cm\S\2 LA dimension 4.2 cm LA/Ao 1.2 LVOT diam 1.9 cm LVOT area 3.0 cm\S\2 LVAd ap4 28.0 cm\S\2 LVLd ap4 7.2 cm EDV(MOD-sp4) 90.4 ml EDV(sp4-el) 92.5 ml LVAs ap4 18.7 cm\S\2 LVLs ap4 6.3 cm ESV(MOD-sp4) 48.6 ml ESV(sp4-el) 47.2 ml EF(MOD-sp4) 46.3 % EF(sp4-el) 49.0 % LVAd ap2 29.9 cm\S\2 LVLd ap2 7.2 cm EDV(MOD-sp2) 100.7 ml EDV(sp2-el) 105.8 ml LVAs ap2 19.3 cm\S\2 LVLs ap2 6.7 cm ESV(MOD-sp2) 47.0 ml ESV(sp2-el) 47.7 ml EF(MOD-sp2) 53.3 % EF(sp2-el) 54.9 % LVLd %diff -0.27 % EDV(MOD-bp) 96.1 ml LVLs %diff 5.2 % ESV(MOD-bp) 49.3 ml EF(MOD-bp) 48.7 % SV(MOD-sp4) 41.9 ml SI(MOD-sp4) 18.8 ml/m\S\2 SV(MOD-sp2) 53.7 ml SI(MOD-sp2) 24.1 ml/m\S\2 SV(MOD-bp) 46.8 ml SI(MOD-bp) 21.0 ml/m\S\2 SV(sp4-el) 45.3 ml SI(sp4-el) 20.4 ml/m\S\2 SV(sp2-el) 58.1 ml SI(sp2-el) 26.1 ml/m\S\2 Doppler Measurements and Calculations MV E max gilma 87.9 cm/sec MV P1/2t max gilma 101.8 cm/sec MV P1/2t 46.5 msec MVA(P1/2t) 4.7 cm\S\2 MV dec slope 641.3 cm/sec\S\2 MV dec time 0.17 sec Ao V2 max 106.1 cm/sec Ao max PG 4.5 mmHg Ao max PG (full) 2.3 mmHg DENIA(V,A) 2.1 cm\S\2 DENIA(V,D) 2.1 cm\S\2 AI max gilma 419.5 cm/sec AI max PG 70.4 mmHg AI dec slope 188.1 cm/sec\S\2 AI P1/2t 653.0 msec LV V1 max PG 2.2 mmHg LV V1 max 74.4 cm/sec MR max gilma 445.1 cm/sec MR max PG 79.3 mmHg
[2017-11-23] MEDS: ATORVASTATIN 10 MG TAB PO SCH (20:31)
[2017-11-24] VITALS (8 sets, daily range): BP systolic 91–122; BP diastolic 58–76; PULSE 81–121; TEMP 36.3–37.3; O2SAT 95–97
[2017-11-24 05:50] LABS: HEMATOCRIT 41.6 % (37-47); HEMOGLOBIN 13.4 g/dL (12.0-16.0); MEAN CELL VOLUME 89.8 fL (80-100); MEAN CORPUSCULAR HEMOGLOBIN 28.9 pg (25-34); MEAN CORPUSCULAR HGB CONC 32.2 g/dl (32-36); MEAN PLATELET VOLUME 10.5 fL (7.4-10.4); PLATELET COUNT 203 K/uL (130-400); RED CELL DISTRIBUTION WIDTH SD 49.5 fL (36.4-46.3); WHITE BLOOD COUNT 3.87 K/uL (4.8-10.8)
[2017-11-24 06:11] LABS: INR 1.9 (0.9-1.1)
[2017-11-24 06:16] LABS: PTT PATIENT 121.4 SECONDS (21.0-31.0)
[2017-11-24 06:29] LABS: CALCIUM 8.1 mg/dl (8.5-10.1); CREATININE 1.44 mg/dl (0.60-1.20); POTASSIUM 4.1 mmol/L (3.5-5.1)
[2017-11-24] MEDS: HEPARIN 25,000 UNIT/500ML D5W 500 ML IV PRN (07:22)
[2017-11-24] MEDS: FUROSEMIDE INJ 40 MG in SYRINGE 0 ML IV SCH ×2 (07:23→16:58)
[2017-11-24] MEDS: METOPROLOL SUCC 25MG EXT REL TAB PO SCH ×2 (07:24→20:19)
[2017-11-24] MEDS: LISINOPRIL 20 MG TAB PO SCH (07:24)
[2017-11-24] MEDS: POTASSIUM CHLORIDE 10 MEQ TABCR PO SCH ×2 (07:24→20:18)
[2017-11-24] MEDS: PANTOprazole SOD 40 MG TAB PO SCH (07:24)
[2017-11-24] MEDS: AMIODARONE 200 MG TAB PO SCH ×3 (07:25→20:19)
[2017-11-24] MEDS: PREGABALIN 50 MG CAP PO SCH ×2 (07:26→20:19)
--- NOTE | 2017-11-24 14:38 | Cardiology Follow-Up ---
Subjective Subjective Date of Service: Nov 24, 2017. Pt evaluation today including: conversation w/ patient, conversation w/ family , physical exam, chart review, lab review, review of studies, review of inpatient medication list Additional Details: The patient looks more comfortable today and is sitting in a chair visiting with her family. She's had a good diuresis and has been in negative numbers the last few days. Her weight is down approximately 6 kg. She remains in atrial fibrillation with a heart rate is better controlled. Problem List Medical Problems: (1) Atrial fibrillation with RVR Status: Acute (2) CHF (congestive heart failure) Status: Acute (3) GI bleed Status: Acute (4) Rapid atrial fibrillation Status: Acute Review of Systems Respiratory: + dyspnea on exertion, No see HPI, No cough, No sputum, No wheezing, No shortness of breath, No dyspnea at rest, No hemoptysis, No problem reported Cardiac: + edema, No see HPI, No chest pain, No orthopnea, No PND, No claudication, No palpitations, No problem reported Endo: + fatigue Objective Vital Signs Last Vital Signs Documentation Date Time Temp Pulse Resp B/P (MAP) Pulse Ox O2 Delivery O2 Flow Rate FiO2 11/24/17 12:00 Nasal Cannula 2.0 11/24/17 11:52 36.6 108 22 105/71 (82) 96 Physical Exam: General Appearance: WD/WN, no apparent distress Eyes: bilateral eyes normal inspection, bilateral eyes PERRL, bilateral eyes EOMI ENT: normal ENT inspection, hearing grossly normal, TMs normal, pharynx normal Neck: supple, no adenopathy, thyroid normal, no JVD, no carotid bruits, trachea midline Respiratory/Chest: lungs clear, normal breath sounds Cardiovascular: no edema, no murmur, + JVD, + gallop/S4, + irregularly irregular Abdomen: normal bowel sounds, non tender, soft, no organomegaly, no pulsatile mass Extremities: normal inspection, no calf tenderness, + pedal edema (improving) 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 Persistent atrial fibrillation with RVR 2. Congestive heart failure probably due to diastolic dysfunction and atrial fibrillation Recommendations: Believe the patient's congestive heart failure is improving and I would continue the diuresis through today. Her INR is almost therapeutic would continue the heparin through today as well. Her echocardiogram when indicate preserved left ventricular systolic function site believe her heart failure is on the basis of her atrial arrhythmias and diastolic dysfunction. If she continues to improve, then once we have her on a congestive heart failure think we should repeat the cardioversion prior to discharge. Medications: Current Inpatient Medications Medications (Trade) Dose Ordered Sig/Claire Route Start Time Stop Time Status Last Admin Dose Admin Heparin Sodium/ Dextrose 500 ml @ 12 mls/hr Q24H PRN IV 11/18/17 16:45 12/18/17 16:44 11/24/17 07:22 12 MLS/HR Acetaminophen (Tylenol Tab) 650 mg Q4H PRN PO 11/18/17 18:15 12/18/17 18:14 11/19/17 02:52 650 MG Atorvastatin Calcium (Lipitor Tab) 10 mg HS PO 11/19/17 21:00 12/19/17 20:59 11/23/17 20:31 10 MG Fluticasone Propionate (Flonase Nasal [place]) 2 sprays DAILY PRN DASHA 11/19/17 05:45 12/19/17 05:44 Lisinopril (Zestril Tab) 20 mg QAM PO 11/19/17 09:00 12/19/17 08:59 11/24/17 07:24 20 MG Pantoprazole Sodium (Protonix Tab) 40 mg QAM PO 11/19/17 09:00 12/19/17 08:59 11/24/17 07:24 40 MG Potassium Chloride (Klor-Con M10) 10 meq BID PO 11/19/17 09:00 12/19/17 08:59 11/24/17 07:24 10 MEQ Pregabalin (Lyrica Cap) 50 mg BID PO 11/19/17 09:00 12/19/17 08:59 11/24/17 07:26 50 MG Tramadol HCl (Ultram Tab) 50 mg Q6H PRN PO 11/19/17 05:45 12/19/17 05:44 11/20/17 02:53 50 MG Warfarin Sodium (Coumadin Tab) 7.5 mg DAILY@1600 PO 11/23/17 16:00 12/19/17 15:59 11/23/17 17:50 7.5 MG Amiodarone HCl (Cordarone Tab) 400 mg TID PO 11/23/17 14:00 12/19/17 13:59 11/24/17 13:57 400 MG Metoprolol Succinate (Toprol Xl Tab) 25 mg BID PO 11/23/17 21:00 12/19/17 08:59 11/24/17 07:24 25 MG Furosemide 40 mg/ Syringe 4 ml @ 4 mls/min BID17 IV 11/23/17 17:00 12/23/17 16:59 11/24/17 07:23 4 MLS/MIN Lab Results: Last 24 Hours Test 11/23/17 14:39 11/24/17 05:30 11/24/17 13:27 Activated Partial Thromboplast Time 67.6 SECONDS 121.4 SECONDS 53.0 SECONDS Partial Thromboplastin Ratio 2.6 4.7 2.0 White Blood Count 3.87 K/uL Red Blood Count 4.63 M/uL Hemoglobin 13.4 g/dL Hematocrit 41.6 % Mean Corpuscular Volume 89.8 fL Mean Corpuscular Hemoglobin 28.9 pg Mean Corpuscular Hemoglobin Concent 32.2 g/dl RDW Standard Deviation 49.5 fL RDW Coefficient of Variation 15.0 % Platelet Count 203 K/uL Mean Platelet Volume 10.5 fL Prothrombin Time 20.1 SECONDS Prothromb Time International Ratio 1.9 Sodium Level 141 mmol/L Potassium Level 4.1 mmol/L Chloride Level 103 mmol/L Carbon Dioxide Level 31 mmol/L Anion Gap 7.0 mmol/L Blood Urea Nitrogen 21 mg/dl Creatinine 1.44 mg/dl Est Creatinine Clear Calc Drug Dose 38.6 ml/min Estimated GFR () 38.8 Estimated GFR (Non- 33.5 BUN/Creatinine Ratio 14.9 Random Glucose 110 mg/dl Calcium Level 8.1 mg/dl
--- NOTE | 2017-11-24 16:32 | Progress Note ---
Internal Med Progress Note Date of Service: Nov 24, 2017. Provider Documentation: SUBJECTIVE: Patient feels much better today, denies of any shortness of breath or palpitation Remains with controlled atrial fibrillation on monitor Denies of any chest discomfort, No fever or chills OBJECTIVE: Vital Signs-as noted below Exam: General-no sign of distress Eyes-sclera nonicteric, PERRLA/EOMI ENT-moist oral mucosa Neck-no JVD, no carotid bruit ,no thyromegaly noted Lungs-clear to auscultate, no wheezes rales Heart-irregular Abdomen-soft nontender, bowel sounds active Extremities-lower extremity edema, no rash or deformity Neuro-alert and oriented 3 Lab data as noted below. ASSESSMENT & PLAN: 1.Paroxysmal A. fib -Remains rate controlled A. fib Status post ELEANOR cardioversion on 11/19/2017 -Converted to atrial fibrillation again -Appreciate input form cardiology -Currently on amiodarone 400 mg twice daily and Toprol-XL 25 mg daily -Coumadin/IV heparin bridge -INR 1.9 today -IV heparin will be discontinued once INR is equal or <2 2. Acute CHF with diastolic dysfunction: Patient is in negative balance On IV Lasix 40 mg twice daily Denies of any orthopnea/PND Recent echo shows normal ejection fraction and diastolic dysfunction Decompensation of CHF secondary to atrial fibrillation Patient will be continued with IV Lasix for 1 more day Continue to monitor on status Intake and output Cardiology follow 3. Acute kidney stage III: -Creatinine elevated from baseline -Possible due to diuresis -We will hold lisinopril -Repeat labs tomorrow 4. Hypertension -Blood pressure stable -Continue meds CODE STATUS: Full DVT PROPHYLAXIS On Coumadin, IV heparin bridge INR 1.9 DISPOSITION Expected to be discharged home when medically stable Lives at home alone Was independent in ADLs PT OT evaluation requested Social service consulted for discharge planning Vital Signs: Date Time Temp Pulse Resp B/P (MAP) Pulse Ox O2 Delivery O2 Flow Rate FiO2 11/24/17 20:00 Nasal Cannula 2.0 11/24/17 19:45 37.3 83 20 91/58 (69) 95 Nasal Cannula 2.0 11/24/17 16:00 95 Nasal Cannula 2.0 11/24/17 15:16 36.8 81 20 112/70 (84) 97 Nasal Cannula 2.0 3/6/18 12:00 Nasal Cannula 2.0 11/24/17 11:52 36.6 108 22 105/71 (82) 96 Nasal Cannula 2.0 11/24/17 08:00 96 Nasal Cannula 2.0 11/24/17 07:30 37.0 106 18 114/75 (88) 96 Nasal Cannula 2.0 11/24/17 04:00 Nasal Cannula 2.0 11/24/17 03:47 36.3 105 24 122/76 (91) 97 Nasal Cannula 2.0 11/24/17 00:00 Nasal Cannula 2.0 11/23/17 23:40 36.9 104 19 110/67 (81) 96 Nasal Cannula 2.0 Lab Results: Results Past 24 Hours Test 11/24/17 05:30 11/24/17 13:27 Range/Units White Blood Count 3.87 4.8-10.8 K/uL Red Blood Count 4.63 4.2-5.4 M/uL Hemoglobin 13.4 12.0-16.0 g/dL Hematocrit 41.6 37-47 % Mean Corpuscular Volume 89.8 80-100 fL Mean Corpuscular Hemoglobin 28.9 25-34 pg Mean Corpuscular Hemoglobin Concent 32.2 32-36 g/dl RDW Standard Deviation 49.5 36.4-46.3 fL RDW Coefficient of Variation 15.0 11.5-14.5 % Platelet Count 203 130-400 K/uL Mean Platelet Volume 10.5 7.4-10.4 fL Prothrombin Time 20.1 9.0-12.0 SECONDS Prothromb Time International Ratio 1.9 0.9-1.1 Activated Partial Thromboplast Time 121.4 53.0 21.0-31.0 SECONDS Partial Thromboplastin Ratio 4.7 2.0 Sodium Level 141 136-145 mmol/L Potassium Level 4.1 3.5-5.1 mmol/L Chloride Level 103 98-107 mmol/L Carbon Dioxide Level 31 21-32 mmol/L Anion Gap 7.0 3-11 mmol/L Blood Urea Nitrogen 21 7-18 mg/dl Creatinine 1.44 0.60-1.20 mg/dl Est Creatinine Clear Calc Drug Dose 38.6 ml/min Estimated GFR () 38.8 Estimated GFR (Non- 33.5 BUN/Creatinine Ratio 14.9 10-20 Random Glucose 110 70-99 mg/dl Calcium Level 8.1 8.5-10.1 mg/dl
[2017-11-24] MEDS: WARFARIN SOD 7.5 MG TAB PO SCH (16:59)
[2017-11-24] MEDS: ATORVASTATIN 10 MG TAB PO SCH (20:19)
[2017-11-25] VITALS (10 sets, daily range): BP systolic 71–131; BP diastolic 44–71; PULSE 65–106; TEMP 36.4–36.9; O2SAT 94–97
[2017-11-25 05:21] LABS: INR 3.1 (0.9-1.1)
[2017-11-25 05:25] LABS: CALCIUM 7.7 mg/dl (8.5-10.1); CREATININE 1.86 mg/dl (0.60-1.20); POTASSIUM 4.3 mmol/L (3.5-5.1)
[2017-11-25 05:46] LABS: PTT PATIENT 65.8 SECONDS (21.0-31.0)
[2017-11-25] MEDS: PANTOprazole SOD 40 MG TAB PO SCH (07:37)
[2017-11-25] MEDS: POTASSIUM CHLORIDE 10 MEQ TABCR PO SCH ×2 (07:37→20:26)
[2017-11-25] MEDS: FUROSEMIDE INJ 40 MG in SYRINGE 0 ML IV SCH (07:37)
[2017-11-25] MEDS: METOPROLOL SUCC 25MG EXT REL TAB PO SCH ×2 (07:38→20:27)
[2017-11-25] MEDS: AMIODARONE 200 MG TAB PO SCH ×3 (07:38→20:26)
--- NOTE | 2017-11-25 08:03 | Progress Note ---
Progress Note Date of Service Nov 25, 2017. Progress Note ATTENDING NOTE : AM labs reviewed : INR 3.1 ordered to DC IV heparin hold Coumadin today repeat INR tomorrow Cr elevated 1.8 ( KEYSHA On CKD stage 3 ) hold IV Lasix today repeat Labs in AM
[2017-11-25] MEDS: PREGABALIN 50 MG CAP PO SCH ×2 (08:58→20:28)
--- NOTE | 2017-11-25 13:01 | Cardiology Follow-Up ---
Subjective Subjective Date of Service: Nov 25, 2017. Pt evaluation today including: conversation w/ patient, conversation w/ family , physical exam, chart review, lab review, review of studies, review of inpatient medication list Additional Details: The patient had an uneventful night. She denies shortness of breath orthopnea. She remains in atrial fibrillation with a controlled heart rate. Problem List Medical Problems: (1) Atrial fibrillation with RVR Status: Acute (2) CHF (congestive heart failure) Status: Acute (3) GI bleed Status: Acute (4) Rapid atrial fibrillation Status: Acute Review of Systems Respiratory: + dyspnea on exertion, No see HPI, No cough, No sputum, No wheezing, No shortness of breath, No dyspnea at rest, No hemoptysis, No problem reported Cardiac: + edema, No see HPI, No chest pain, No orthopnea, No PND, No claudication, No palpitations, No problem reported Endo: + fatigue Objective Vital Signs Last Vital Signs Documentation Date Time Temp Pulse Resp B/P (MAP) Pulse Ox O2 Delivery O2 Flow Rate FiO2 11/25/17 11:33 36.7 85 20 71/47 (55) 96 Nasal Cannula 2.0 Physical Exam: General Appearance: WD/WN, no apparent distress Eyes: bilateral eyes normal inspection, bilateral eyes PERRL, bilateral eyes EOMI ENT: normal ENT inspection, hearing grossly normal, TMs normal, pharynx normal Neck: supple, no adenopathy, thyroid normal, no JVD, no carotid bruits, trachea midline Respiratory/Chest: lungs clear, normal breath sounds Cardiovascular: no edema, no murmur, + JVD, + gallop/S4, + irregularly irregular Abdomen: normal bowel sounds, non tender, soft, no organomegaly, no pulsatile mass Extremities: normal inspection, no calf tenderness, + pedal edema (improving) 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 Persistent atrial fibrillation with RVR 2. Congestive heart failure probably due to diastolic dysfunction and atrial fibrillation Recommendations: This patient still has edema of her calves although it is markedly improved and her weight is down. I agree with stopping the IV Lasix but I think we should continue with oral Lasix. Also she has persistent atrial fibrillation and was successfully cardioverted once but went back into the atrial fibrillation when she developed congestive heart failure post cardioversion. I think we should try cardioversion again. She has been anticoagulated. I do not believe she needs another transesophageal echocardiogram. Medications: Current Inpatient Medications Medications (Trade) Dose Ordered Sig/Claire Route Start Time Stop Time Status Last Admin Dose Admin Acetaminophen (Tylenol Tab) 650 mg Q4H PRN PO 11/18/17 18:15 12/18/17 18:14 11/19/17 02:52 650 MG Atorvastatin Calcium (Lipitor Tab) 10 mg HS PO 11/19/17 21:00 12/19/17 20:59 11/24/17 20:19 10 MG Fluticasone Propionate (Flonase Nasal [place]) 2 sprays DAILY PRN DASHA 11/19/17 05:45 12/19/17 05:44 Lisinopril (Zestril Tab) 20 mg QAM PO 11/19/17 09:00 12/19/17 08:59 Future Hold 11/24/17 07:24 20 MG Pantoprazole Sodium (Protonix Tab) 40 mg QAM PO 11/19/17 09:00 12/19/17 08:59 11/25/17 07:37 40 MG Potassium Chloride (Klor-Con M10) 10 meq BID PO 11/19/17 09:00 12/19/17 08:59 11/25/17 07:37 10 MEQ Pregabalin (Lyrica Cap) 50 mg BID PO 11/19/17 09:00 12/19/17 08:59 11/25/17 08:58 50 MG Tramadol HCl (Ultram Tab) 50 mg Q6H PRN PO 11/19/17 05:45 12/19/17 05:44 11/20/17 02:53 50 MG Warfarin Sodium (Coumadin Tab) 7.5 mg DAILY@1600 PO 11/23/17 16:00 12/19/17 15:59 Future Hold 11/24/17 16:59 7.5 MG Amiodarone HCl (Cordarone Tab) 400 mg TID PO 11/23/17 14:00 12/19/17 13:59 11/25/17 07:38 400 MG Metoprolol Succinate (Toprol Xl Tab) 25 mg BID PO 11/23/17 21:00 12/19/17 08:59 11/25/17 07:38 25 MG Furosemide 40 mg/ Syringe 4 ml @ 4 mls/min BID17 IV 11/23/17 17:00 12/23/17 16:59 Future Hold 11/25/17 07:37 4 MLS/MIN Sodium Chloride 1,000 ml @ 50 mls/hr Q20H IV 11/25/17 23:55 12/25/17 23:54 UNV Current Inpatient Medications Medications (Trade) Dose Ordered Sig/Claire Route Start Time Stop Time Status Last Admin Dose Admin Acetaminophen (Tylenol Tab) 650 mg Q4H PRN PO 11/18/17 18:15 12/18/17 18:14 11/19/17 02:52 650 MG Atorvastatin Calcium (Lipitor Tab) 10 mg HS PO 11/19/17 21:00 12/19/17 20:59 11/24/17 20:19 10 MG Fluticasone Propionate (Flonase Nasal [place]) 2 sprays DAILY PRN DASHA 11/19/17 05:45 12/19/17 05:44 Lisinopril (Zestril Tab) 20 mg QAM PO 11/19/17 09:00 12/19/17 08:59 Future Hold 11/24/17 07:24 20 MG Pantoprazole Sodium (Protonix Tab) 40 mg QAM PO 11/19/17 09:00 12/19/17 08:59 11/25/17 07:37 40 MG Potassium Chloride (Klor-Con M10) 10 meq BID PO 11/19/17 09:00 12/19/17 08:59 11/25/17 07:37 10 MEQ Pregabalin (Lyrica Cap) 50 mg BID PO 11/19/17 09:00 12/19/17 08:59 11/25/17 08:58 50 MG Tramadol HCl (Ultram Tab) 50 mg Q6H PRN PO 11/19/17 05:45 12/19/17 05:44 11/20/17 02:53 50 MG Warfarin Sodium (Coumadin Tab) 7.5 mg DAILY@1600 PO 11/23/17 16:00 12/19/17 15:59 Future Hold 11/24/17 16:59 7.5 MG Amiodarone HCl (Cordarone Tab) 400 mg TID PO 11/23/17 14:00 12/19/17 13:59 11/25/17 07:38 400 MG Metoprolol Succinate (Toprol Xl Tab) 25 mg BID PO 11/23/17 21:00 12/19/17 08:59 11/25/17 07:38 25 MG Furosemide 40 mg/ Syringe 4 ml @ 4 mls/min BID17 IV 11/23/17 17:00 12/23/17 16:59 Future Hold 11/25/17 07:37 4 MLS/MIN Sodium Chloride 1,000 ml @ 50 mls/hr Q20H IV 11/25/17 23:55 12/25/17 23:54 UNV Lab Results: Last 24 Hours Test 11/24/17 13:27 11/25/17 04:40 Activated Partial Thromboplast Time 53.0 SECONDS 65.8 SECONDS Partial Thromboplastin Ratio 2.0 2.5 Prothrombin Time 31.9 SECONDS Prothromb Time International Ratio 3.1 Sodium Level 140 mmol/L Potassium Level 4.3 mmol/L Chloride Level 104 mmol/L Carbon Dioxide Level 28 mmol/L Anion Gap 8.0 mmol/L Blood Urea Nitrogen 35 mg/dl Creatinine 1.86 mg/dl Est Creatinine Clear Calc Drug Dose 29.8 ml/min Estimated GFR () 28.5 Estimated GFR (Non- 24.6 BUN/Creatinine Ratio 19.0 Random Glucose 91 mg/dl Calcium Level 7.7 mg/dl
[2017-11-25] MEDS ORDERED: FUROSEMIDE 40 MG TAB PO ONE ×2 (13:15→14:45)
--- NOTE | 2017-11-25 19:15 | Progress Note ---
Internal Med Progress Note Date of Service: Nov 25, 2017. Provider Documentation: SUBJECTIVE: Patient states she is feeling fine. No new complaints today Generalized weakness No complaint of palpitation, chest heaviness, orthopnea OBJECTIVE: Vital Signs-as noted below Exam: General-appears to be comfortable, Eyes-sclera nonicteric, PERRLA/EOMI ENT-moist oral mucosa Neck-no JVD, no carotid bruit ,no thyromegaly noted Lungs-clear to auscultate, no wheezes rales Heart-irregular Abdomen-soft nontender, bowel sounds active Extremities-lower extremity edema, no rash or deformity Neuro-alert and oriented 3. No focal neurological deficit Lab data as noted below. ASSESSMENT & PLAN: 1.Paroxysmal A. fib -Remains rate controlled A. fib ELEANOR cardioversion on 11/19/2017-converted to A. fib - on amiodarone 400 mg twice daily and Toprol-XL 25 mg daily -INR 3.1 -DC IV heparin bridge -No Coumadin today --Appreciate input form cardiology -Plan for cardioversion in a.m. -Patient is ordered n.p.o. except meds after midnight 2. Acute CHF with diastolic dysfunctionn: Volume status improved after aggressive diuresis Denies of any orthopnea/PND Recent echo shows normal ejection fraction and diastolic dysfunction Decompensation of acute diastolic CHF secondary to atrial fibrillation IV Lasix discontinued secondary to acute renal failure Appreciate cardiology evaluation Patient is transitioned to Lasix 40 mg daily Continue to monitor on status Intake and output 3. Acute kidney stage III: -Creatinine elevated from baseline -due to diuresis -Continue to hold lisinopril -Lasix dose adjusted to 40 mg p.o. daily (from Lasix 40 mg IV twice daily) -Follow labs in a.m. 4. Hypertension -Blood pressure marginally low -Systolic BP in 99 -Patient remains symptomatic ,no complaint of dizzy spell or lightheadedness -Antihypertensives continued with holding parameters -Lasix dose reduced to once once daily, hold for systolic blood pressure less than 100 CODE STATUS: Full DVT PROPHYLAXIS INR> 3 DISPOSITION: Lives at home alone Was independent in ADLs PT OT evaluation appreciated, recommends rehab Social service following for discharge planning Vital Signs: Date Time Temp Pulse Resp B/P (MAP) Pulse Ox O2 Delivery O2 Flow Rate FiO2 11/26/17 05:19 96/64 (75) 11/26/17 04:00 Nasal Cannula 2.0 11/26/17 03:28 36.1 72 21 89/53 (65) 96 Nasal Cannula 2.0 78/48 (58) 11/26/17 00:48 92/58 (69) 82/56 (65) 11/26/17 00:00 Nasal Cannula 2.0 11/25/17 23:12 36.4 65 18 84/55 (65) 95 Nasal Cannula 2.0 76/44 (55) 11/25/17 20:29 105/70 (82) 11/25/17 20:00 96 Nasal Cannula 2.0 11/25/17 19:11 36.5 76 20 103/58 (73) 94 Nasal Cannula 2.0 11/25/17 16:00 95 Nasal Cannula 2.0 11/25/17 15:41 36.9 84 18 90/51 (64) 95 11/25/17 13:29 88/56 (67) 11/25/17 11:33 36.7 85 20 71/47 (55) 96 Nasal Cannula 2.0 11/25/17 11:10 Nasal Cannula 2.0 11/25/17 08:00 Nasal Cannula 2.0 11/25/17 07:40 36.6 106 20 131/71 (91) 97 Nasal Cannula 2.0 Lab Results: Results Past 24 Hours Test 11/26/17 04:44 Range/Units
[2017-11-25] MEDS: ATORVASTATIN 10 MG TAB PO SCH (20:26)
[2017-11-25] MEDS ORDERED: SODIUM CHLORIDE 0.9% 1000ML 1,000 ML IV SCH (23:55)
[2017-11-26] VITALS (17 sets, daily range): BP systolic 78–119; BP diastolic 43–73; PULSE 57–87; TEMP 36.1–36.7; O2SAT 91–99
[2017-11-26] MEDS ORDERED: SODIUM CHLORIDE 0.9% 500ML 500 ML IV SCH (03:45)
[2017-11-26 06:53] LABS: HEMATOCRIT 39.8 % (37-47); HEMOGLOBIN 12.8 g/dL (12.0-16.0); MEAN CELL VOLUME 89.4 fL (80-100); MEAN CORPUSCULAR HEMOGLOBIN 28.8 pg (25-34); MEAN CORPUSCULAR HGB CONC 32.2 g/dl (32-36); MEAN PLATELET VOLUME 10.5 fL (7.4-10.4); PLATELET COUNT 185 K/uL (130-400); RED CELL DISTRIBUTION WIDTH CV 15.1 % (11.5-14.5); RED CELL DISTRIBUTION WIDTH SD 49.4 fL (36.4-46.3); WHITE BLOOD COUNT 2.86 K/uL (4.8-10.8)
[2017-11-26 07:03] LABS: INR 3.5 (0.9-1.1); PTT PATIENT 40.1 SECONDS (21.0-31.0)
[2017-11-26] MEDS ORDERED: MIDAZOLAM HCL 1 MG/ML 2ML VIAL ONE (07:10)
[2017-11-26] MEDS ORDERED: PROPOFOL IV EMULSION 10 MG/ML 20 ML VIAL IV ONE (07:10)
[2017-11-26] MEDS ORDERED: KETAMINE HCL INJ 50 MG/ML 10 ML VIAL ONE (07:10)
[2017-11-26] MEDS ORDERED: LIDOCAINE HCL 2% 2 ML VIAL (20MG/ML) ONE (07:10)
--- NOTE | 2017-11-26 07:21 | DIAGNOSTIC IMAGING REPORT ---
CHEST ONE VIEW PORTABLE CLINICAL HISTORY: CHF dyspnea COMPARISON STUDY: 11/23/2017 FINDINGS: Moderate stable cardiomegaly. Stable fixed lateral hernia. Prominent pulmonary vasculature is slightly improved. Trace pleural fluid left lung base laterally. IMPRESSION: Stable cardia megaly. Improving pulmonary vascular congestion. The above report was generated using voice recognition software. It may contain grammatical, syntax or spelling errors. Electronically signed by: Ruben Schmid M.D. 11/26/2017 7:19 AM Dictated Date/Time: 11/26/2017 7:19 AM
[2017-11-26 07:34] LABS: CALCIUM 7.8 mg/dl (8.5-10.1); CREATININE 1.99 mg/dl (0.60-1.20); POTASSIUM 4.5 mmol/L (3.5-5.1)
[2017-11-26] MEDS ORDERED: ETOMIDATE 2 MG/ML 20 ML VIAL IV ONE (07:55)
--- NOTE | 2017-11-26 08:24 | CARDIOVERSION ---
DATE OF OPERATION: 11/26/2017 PROCEDURE: Cardioversion. PROCEDURE SUMMARY: The patient was taken to the holding area of the cardiac cardiac cath lab technologist. After informed consent was obtained, the patient received sedation by anesthesia. She then received 200 joules of biphasic energy which converted her to a normal sinus rhythm. The patient then was recovered and returned to her room in stable condition. I attest to the content of the Intraoperative Record and any orders documented therein. Any exception s are noted below.
--- NOTE | 2017-11-26 08:33 | Anesthesiology Progress Note ---
Anesthesia Post Op Note Date & Time Nov 26, 2017 at 08:33 Vital Signs Pain Intensity: 0 Vital Signs Past 12 Hours Date Time Temp Pulse Resp B/P (MAP) Pulse Ox O2 Delivery O2 Flow Rate FiO2 11/26/17 08:22 57 16 85/42 (56) 98 Room Air 11/26/17 08:12 87 16 88/43 99 Room Air 11/26/17 08:10 87 16 88/43 99 Nasal Cannula 4 11/26/17 08:06 87 16 87/44 98 Nasal Cannula 4 11/26/17 08:05 87 16 91/53 98 Nasal Cannula 4 11/26/17 08:00 87 16 107/64 98 Nasal Cannula 4 11/26/17 07:02 36.6 74 20 90/61 (71) 96 11/26/17 05:19 96/64 (75) 11/26/17 04:00 Nasal Cannula 2.0 11/26/17 03:28 36.1 72 21 89/53 (65) 96 Nasal Cannula 2.0 78/48 (58) 11/26/17 00:48 92/58 (69) 82/56 (65) 11/26/17 00:00 Nasal Cannula 2.0 11/25/17 23:12 36.4 65 18 84/55 (65) 95 Nasal Cannula 2.0 76/44 (55) Notes Mental Status: alert / awake / arousable, participated in evaluation Pt Amnestic to Procedure: Yes Nausea / Vomiting: adequately controlled Pain: adequately controlled Airway Patency, RR, SpO2: stable & adequate BP & HR: stable & adequate Hydration State: stable & adequate Anesthetic Complications: no major complications apparent
[2017-11-26] MEDS: METOPROLOL SUCC 25MG EXT REL TAB PO SCH ×2 (09:00→19:58)
[2017-11-26] MEDS: PANTOprazole SOD 40 MG TAB PO SCH (09:26)
[2017-11-26] MEDS: POTASSIUM CHLORIDE 10 MEQ TABCR PO SCH ×2 (09:26→19:59)
[2017-11-26] MEDS: FUROSEMIDE 40 MG TAB PO SCH (09:26)
[2017-11-26] MEDS: PREGABALIN 50 MG CAP PO SCH ×2 (09:31→20:02)
--- NOTE | 2017-11-26 12:55 | Cardiology Follow-Up ---
Subjective Subjective Date of Service: Nov 26, 2017. Pt evaluation today including: conversation w/ patient, physical exam, lab review, review of inpatient medication list Additional Details: The patient had a successful cardioversion this morning. She is maintaining sinus rhythm. Problem List Medical Problems: (1) Atrial fibrillation with RVR Status: Acute (2) CHF (congestive heart failure) Status: Acute (3) GI bleed Status: Acute (4) Rapid atrial fibrillation Status: Acute Review of Systems Respiratory: + dyspnea on exertion, No see HPI, No cough, No sputum, No wheezing, No shortness of breath, No dyspnea at rest, No hemoptysis, No problem reported Cardiac: + edema, No see HPI, No chest pain, No orthopnea, No PND, No claudication, No palpitations, No problem reported Endo: + fatigue Objective Vital Signs Last Vital Signs Documentation Date Time Temp Pulse Resp B/P (MAP) Pulse Ox O2 Delivery O2 Flow Rate FiO2 11/26/17 12:10 Nasal Cannula 2.0 11/26/17 11:13 36.5 63 20 93/55 (68) 94 Physical Exam: General Appearance: WD/WN, no apparent distress Eyes: bilateral eyes normal inspection, bilateral eyes PERRL, bilateral eyes EOMI ENT: normal ENT inspection, hearing grossly normal, TMs normal, pharynx normal Neck: supple, no adenopathy, thyroid normal, no JVD, no carotid bruits, trachea midline Respiratory/Chest: lungs clear, normal breath sounds Cardiovascular: regular rate, rhythm, no edema, no murmur, + JVD, + gallop/S4 Abdomen: normal bowel sounds, non tender, soft, no organomegaly, no pulsatile mass Extremities: normal inspection, no calf tenderness, + pedal edema (improving) 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 Paroxysmal atrial fibrillation 2. Congestive heart failure probably due to diastolic dysfunction and atrial fibrillation Recommendations: As outlined above the patient had a successful cardioversion today. I would like her to remain on amiodarone 400 mg 3 times daily. I would also continue the metoprolol. She should be on both a diuretic and an JASMYNE inhibitor. If her blood pressure remains low I would not hold the lisinopril but reduce the dosage. Medications: Current Inpatient Medications Medications (Trade) Dose Ordered Sig/Claire Route Start Time Stop Time Status Last Admin Dose Admin Acetaminophen (Tylenol Tab) 650 mg Q4H PRN PO 11/18/17 18:15 12/18/17 18:14 11/19/17 02:52 650 MG Atorvastatin Calcium (Lipitor Tab) 10 mg HS PO 11/19/17 21:00 12/19/17 20:59 11/25/17 20:26 10 MG Fluticasone Propionate (Flonase Nasal [place]) 2 sprays DAILY PRN DASHA 11/19/17 05:45 12/19/17 05:44 Pantoprazole Sodium (Protonix Tab) 40 mg QAM PO 11/19/17 09:00 12/19/17 08:59 11/26/17 09:26 40 MG Potassium Chloride (Klor-Con M10) 10 meq BID PO 11/19/17 09:00 12/19/17 08:59 11/26/17 09:26 10 MEQ Pregabalin (Lyrica Cap) 50 mg BID PO 11/19/17 09:00 12/19/17 08:59 11/26/17 09:31 50 MG Tramadol HCl (Ultram Tab) 50 mg Q6H PRN PO 11/19/17 05:45 12/19/17 05:44 11/20/17 02:53 50 MG Warfarin Sodium (Coumadin Tab) 7.5 mg DAILY@1600 PO 11/23/17 16:00 12/19/17 15:59 Future Hold 11/24/17 16:59 7.5 MG Metoprolol Succinate (Toprol Xl Tab) 25 mg BID PO 11/23/17 21:00 12/19/17 08:59 11/25/17 20:27 25 MG Furosemide (Lasix Tab) 40 mg QAM PO 11/26/17 09:00 12/26/17 08:59 11/26/17 09:26 40 MG Lab Results: Last 24 Hours Test 11/26/17 06:31 White Blood Count 2.86 K/uL Red Blood Count 4.45 M/uL Hemoglobin 12.8 g/dL Hematocrit 39.8 % Mean Corpuscular Volume 89.4 fL Mean Corpuscular Hemoglobin 28.8 pg Mean Corpuscular Hemoglobin Concent 32.2 g/dl RDW Standard Deviation 49.4 fL RDW Coefficient of Variation 15.1 % Platelet Count 185 K/uL Mean Platelet Volume 10.5 fL Prothrombin Time 35.6 SECONDS Prothromb Time International Ratio 3.5 Activated Partial Thromboplast Time 40.1 SECONDS Partial Thromboplastin Ratio 1.5 Sodium Level 140 mmol/L Potassium Level 4.5 mmol/L Chloride Level 106 mmol/L Carbon Dioxide Level 28 mmol/L Anion Gap 6.0 mmol/L Blood Urea Nitrogen 43 mg/dl Creatinine 1.99 mg/dl Est Creatinine Clear Calc Drug Dose 28.0 ml/min Estimated GFR () 26.3 Estimated GFR (Non- 22.7 BUN/Creatinine Ratio 21.4 Random Glucose 92 mg/dl Calcium Level 7.8 mg/dl
--- NOTE | 2017-11-26 15:45 | Progress Note ---
Internal Med Progress Note Date of Service: Nov 26, 2017. Provider Documentation: SUBJECTIVE: Underwent DC cardioversion today Denies of any chest pain palpitation or shortness of breath OBJECTIVE: Vital Signs-as noted below Exam: General-appears to be comfortable, Eyes-sclera nonicteric, PERRLA/EOMI ENT-moist oral mucosa Neck-no JVD, no carotid bruit ,no thyromegaly noted Lungs-clear to auscultate, no wheezes rales Heart-regular Abdomen-soft nontender, bowel sounds active Extremities-+1-2 bilateral lower extremity edema Neuro-alert and oriented 3. No focal neurological deficit Lab data as noted below. ASSESSMENT & PLAN: 1.Paroxysmal A. fib Status post successful DC cardioversion today Remains in sinus rhythm rate controlled Appreciate input from cardiology Patient will remain on amiodarone 400 mg 3 times daily Continue metoprolol INR 3.5 today Continue to hold Coumadin 2. Acute CHF with diastolic dysfunction: Due to rapid A. fib Patient is continued with Lasix and JASMYNE inhibitor -hold for systolic blood pressure less than 100 Continue to monitor volume status 3. Acute kidney injury /CKD stage III: due to diuresis -Lasix dose adjusted to 40 mg p.o. daily (from Lasix 40 mg IV twice daily)/ continue lisinopril -Follow labs in a.m. 4. Hypertension -Patient remains Asymptomatic ,no complaint of dizzy spell or lightheadedness -Antihypertensives continued with holding parameters -Lasix dose reduced to once daily, hold for systolic blood pressure less than 100 CODE STATUS: Full DVT PROPHYLAXIS INR> 3 DISPOSITION: Appreciate PT evaluation-recommends rehab Referral made to [facility] discharged to rehab in the next 1-2 days if patient remains medically stable Vital Signs: Date Time Temp Pulse Resp B/P (MAP) Pulse Ox O2 Delivery O2 Flow Rate FiO2 11/26/17 20:00 95 Nasal Cannula 2.0 11/26/17 19:28 36.6 63 16 118/66 (83) 96 Nasal Cannula 2.0 11/26/17 16:00 97 Nasal Cannula 2.0 11/26/17 15:31 36.3 65 16 93/56 (68) 97 Nasal Cannula 2.0 11/26/17 12:10 Nasal Cannula 2.0 11/26/17 11:13 36.5 63 20 93/55 (68) 94 Nasal Cannula 2.0 11/26/17 09:00 Room Air 11/26/17 08:58 36.4 57 18 103/67 (79) 91 Room Air 11/26/17 08:22 57 16 85/42 (56) 98 Room Air 11/26/17 08:12 87 16 88/43 99 Room Air 11/26/17 08:10 87 16 88/43 99 Nasal Cannula 4 11/26/17 08:06 87 16 87/44 98 Nasal Cannula 4 11/26/17 08:05 87 16 91/53 98 Nasal Cannula 4 11/26/17 08:00 87 16 107/64 98 Nasal Cannula 4 11/26/17 07:02 36.6 74 20 90/61 (71) 96 11/26/17 05:19 96/64 (75) 11/26/17 04:00 Nasal Cannula 2.0 11/26/17 03:28 36.1 72 21 89/53 (65) 96 Nasal Cannula 2.0 78/48 (58) 11/26/17 00:48 92/58 (69) 82/56 (65) 11/26/17 00:00 Nasal Cannula 2.0 11/25/17 23:12 36.4 65 18 84/55 (65) 95 Nasal Cannula 2.0 76/44 (55) Lab Results: Results Past 24 Hours Test 11/26/17 06:31 Range/Units White Blood Count 2.86 4.8-10.8 K/uL Red Blood Count 4.45 4.2-5.4 M/uL Hemoglobin 12.8 12.0-16.0 g/dL Hematocrit 39.8 37-47 % Mean Corpuscular Volume 89.4 80-100 fL Mean Corpuscular Hemoglobin 28.8 25-34 pg Mean Corpuscular Hemoglobin Concent 32.2 32-36 g/dl RDW Standard Deviation 49.4 36.4-46.3 fL RDW Coefficient of Variation 15.1 11.5-14.5 % Platelet Count 185 130-400 K/uL Mean Platelet Volume 10.5 7.4-10.4 fL Prothrombin Time 35.6 9.0-12.0 SECONDS Prothromb Time International Ratio 3.5 0.9-1.1 Activated Partial Thromboplast Time 40.1 21.0-31.0 SECONDS Partial Thromboplastin Ratio 1.5 Sodium Level 140 136-145 mmol/L Potassium Level 4.5 3.5-5.1 mmol/L Chloride Level 106 98-107 mmol/L Carbon Dioxide Level 28 21-32 mmol/L Anion Gap 6.0 3-11 mmol/L Blood Urea Nitrogen 43 7-18 mg/dl Creatinine 1.99 0.60-1.20 mg/dl Est Creatinine Clear Calc Drug Dose 28.0 ml/min Estimated GFR () 26.3 Estimated GFR (Non- 22.7 BUN/Creatinine Ratio 21.4 10-20 Random Glucose 92 70-99 mg/dl Calcium Level 7.8 8.5-10.1 mg/dl
[2017-11-26] MEDS: AMIODARONE 200 MG TAB PO SCH (16:37)
[2017-11-26] MEDS: ATORVASTATIN 10 MG TAB PO SCH (19:59)
[2017-11-27] VITALS (12 sets, daily range): BP systolic 104–114; BP diastolic 59–69; PULSE 56–71; TEMP 36.6–37.1; O2SAT 90–98
[2017-11-27 06:35] LABS: INR 3.1 (0.9-1.1); PTT PATIENT 43.2 SECONDS (21.0-31.0)
[2017-11-27 06:54] LABS: CREATININE 1.43 mg/dl (0.60-1.20); POTASSIUM 4.7 mmol/L (3.5-5.1)
[2017-11-27] MEDS: AMIODARONE 200 MG TAB PO SCH ×2 (08:04→16:58)
[2017-11-27] MEDS: LISINOPRIL 20 MG TAB PO SCH (08:58)
[2017-11-27] MEDS: METOPROLOL SUCC 25MG EXT REL TAB PO SCH ×2 (09:00→21:37)
[2017-11-27] MEDS: PANTOprazole SOD 40 MG TAB PO SCH (09:00)
[2017-11-27] MEDS: POTASSIUM CHLORIDE 10 MEQ TABCR PO SCH ×2 (09:01→21:36)
[2017-11-27] MEDS: FUROSEMIDE 40 MG TAB PO SCH (09:01)
--- NOTE | 2017-11-27 09:58 | Anesthesiology Progress Note ---
Anesthesia Post Op Note Date & Time Nov 27, 2017 at 09:56 Vital Signs Pain Intensity: 0.0 Vital Signs Past 12 Hours Date Time Temp Pulse Resp B/P (MAP) Pulse Ox O2 Delivery O2 Flow Rate FiO2 11/27/17 07:50 36.6 56 16 109/64 (79) 98 Nasal Cannula 2.0 11/27/17 04:00 Nasal Cannula 2.0 11/27/17 03:10 36.9 58 17 110/68 (82) 97 Nasal Cannula 2.0 11/27/17 00:00 Nasal Cannula 2.0 11/26/17 23:15 36.7 63 18 119/73 (88) 94 Nasal Cannula 1.0 Notes Mental Status: alert / awake / arousable, participated in evaluation Pt Amnestic to Procedure: Yes Nausea / Vomiting: adequately controlled Pain: adequately controlled Airway Patency, RR, SpO2: stable & adequate, see Notes BP & HR: stable & adequate Hydration State: stable & adequate Anesthetic Complications: no major complications apparent patient weaned from 4lpm N/C to 1lpm N/C, spo2 94%. RN to get ISB for patient.
--- NOTE | 2017-11-27 11:53 | Cardiology Follow-Up ---
Subjective Subjective Date of Service: Nov 27, 2017. Pt evaluation today including: conversation w/ patient, conversation w/ family , physical exam, chart review, lab review, review of studies, review of inpatient medication list Additional Details: The patient is maintaining sinus rhythm. She had an uneventful night. She denies shortness of breath or dyspnea. Overall she feels well and would like to go home. Problem List Medical Problems: (1) Atrial fibrillation with RVR Status: Acute (2) CHF (congestive heart failure) Status: Acute (3) GI bleed Status: Acute (4) Rapid atrial fibrillation Status: Acute Review of Systems Respiratory: + dyspnea on exertion, No see HPI, No cough, No sputum, No wheezing, No shortness of breath, No dyspnea at rest, No hemoptysis, No problem reported Cardiac: + edema, No see HPI, No chest pain, No orthopnea, No PND, No claudication, No palpitations, No problem reported Endo: + fatigue Objective Vital Signs Last Vital Signs Documentation Date Time Temp Pulse Resp B/P (MAP) Pulse Ox O2 Delivery O2 Flow Rate FiO2 11/27/17 11:05 92 11/27/17 07:50 36.6 56 16 109/64 (79) Nasal Cannula 2.0 Physical Exam: General Appearance: WD/WN, no apparent distress Eyes: bilateral eyes normal inspection, bilateral eyes PERRL, bilateral eyes EOMI ENT: normal ENT inspection, hearing grossly normal, TMs normal, pharynx normal Neck: supple, no adenopathy, thyroid normal, no JVD, no carotid bruits, trachea midline Respiratory/Chest: lungs clear, normal breath sounds Cardiovascular: regular rate, rhythm, no edema, no murmur, + JVD, + gallop/S4 Abdomen: normal bowel sounds, non tender, soft, no organomegaly, no pulsatile mass Extremities: normal inspection, no calf tenderness, + pedal edema (improving) 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 Paroxysmal atrial fibrillation 2. Congestive heart failure probably due to diastolic dysfunction and atrial fibrillation Recommendations: The patient does not want to go to rehab center but wants to return home. I have made arrangements for her to see me next week for close follow-up. I would discharge her on her current medications. The amiodarone should be 400 mg twice daily in the next week although her to 400 mg daily and eventually a maintenance dose of 200 mg daily. Medications: Current Inpatient Medications Medications (Trade) Dose Ordered Sig/Claire Route Start Time Stop Time Status Last Admin Dose Admin Acetaminophen (Tylenol Tab) 650 mg Q4H PRN PO 11/18/17 18:15 12/18/17 18:14 11/19/17 02:52 650 MG Atorvastatin Calcium (Lipitor Tab) 10 mg HS PO 11/19/17 21:00 12/19/17 20:59 11/26/17 19:59 10 MG Fluticasone Propionate (Flonase Nasal [place]) 2 sprays DAILY PRN DASHA 11/19/17 05:45 12/19/17 05:44 Pantoprazole Sodium (Protonix Tab) 40 mg QAM PO 11/19/17 09:00 12/19/17 08:59 11/27/17 09:00 40 MG Potassium Chloride (Klor-Con M10) 10 meq BID PO 11/19/17 09:00 12/19/17 08:59 11/27/17 09:01 10 MEQ Pregabalin (Lyrica Cap) 50 mg BID PO 11/19/17 09:00 12/19/17 08:59 11/26/17 20:02 50 MG Tramadol HCl (Ultram Tab) 50 mg Q6H PRN PO 11/19/17 05:45 12/19/17 05:44 11/20/17 02:53 50 MG Warfarin Sodium (Coumadin Tab) 7.5 mg DAILY@1600 PO 11/23/17 16:00 12/19/17 15:59 Future Hold 11/24/17 16:59 7.5 MG Metoprolol Succinate (Toprol Xl Tab) 25 mg BID PO 11/23/17 21:00 12/19/17 08:59 11/27/17 09:00 25 MG Furosemide (Lasix Tab) 40 mg QAM PO 11/26/17 09:00 12/26/17 08:59 11/27/17 09:01 40 MG Lisinopril (Zestril Tab) 20 mg QAM PO 11/27/17 09:00 12/27/17 08:59 11/27/17 08:58 20 MG Amiodarone HCl (Cordarone Tab) 400 mg BIDM PO 11/27/17 16:45 12/26/17 16:44 Lab Results: Last 24 Hours Test 11/27/17 06:04 Prothrombin Time 31.9 SECONDS Prothromb Time International Ratio 3.1 Activated Partial Thromboplast Time 43.2 SECONDS Partial Thromboplastin Ratio 1.7 Sodium Level 141 mmol/L Potassium Level 4.7 mmol/L Chloride Level 108 mmol/L Carbon Dioxide Level 30 mmol/L Anion Gap 3.0 mmol/L Blood Urea Nitrogen 39 mg/dl Creatinine 1.43 mg/dl Est Creatinine Clear Calc Drug Dose 39.0 ml/min Estimated GFR () 39.2 Estimated GFR (Non- 33.8 BUN/Creatinine Ratio 27.1 Random Glucose 92 mg/dl Calcium Level 8.0 mg/dl
[2017-11-27] MEDS: PREGABALIN 50 MG CAP PO SCH ×2 (13:05→21:42)
--- NOTE | 2017-11-27 16:50 | Progress Note ---
Internal Med Progress Note Date of Service: Nov 27, 2017. Provider Documentation: SUBJECTIVE: Heart rate remains stable sinus with controlled Denies of any chest pain chest discomfort Wants to be discharged home Patient did very poorly in physical therapy Was reported not safe to return home, as patient lives alone She is adamant, wants to go home Not interested in rehab Multiple conversation with her by myself, cardiology, case management, [facility] in store representative Patient declines rehab willing to consider outpatient rehab, if she feels she needs it OBJECTIVE: Vital Signs-as noted below Exam: General-appears to be comfortable, Eyes-sclera nonicteric, PERRLA/EOMI ENT-moist oral mucosa Neck-no JVD, no carotid bruit ,no thyromegaly noted Lungs-clear to auscultate, no wheezes rales Heart-regular Abdomen-soft nontender, bowel sounds active Extremities-+1-2 bilateral lower extremity edema Neuro-alert and oriented 3. No focal neurological deficit Lab data as noted below. ASSESSMENT & PLAN: 1.Paroxysmal A. fib Status post successful DC cardioversion Remains in sinus rhythm rate controlled Appreciate input from cardiology amiodarone dose adjusted 400 mg twice daily will be changed to 400 mg daily in a week and eventually a maintenance dose of 200 mg daily after cardiology eval Cardiology follow-up next week Continue metoprolol INR> 3.5 Continue to hold Coumadin -Resume as INR is less than 3 2. Acute CHF with diastolic dysfunction: Due to rapid A. fib Patient is continued with Lasix and JASMYNE inhibitor - Discharge with Lasix 40 mg daily Continue prior dose of lisinopril 3. Acute kidney injury /CKD stage III: -Resolved, renal function back to baseline due to diuresis -Lasix dose adjusted to 40 mg p.o. daily (from Lasix 40 mg IV twice daily)/ continue lisinopril -Follow labs in a.m. 4. Hypertension Blood pressure stable CODE STATUS: Full DVT PROPHYLAXIS INR> 3 DISPOSITION: Patient refused to go to rehab Also not interested in home health visiting nurse Patient has normal cognitive function able to make her own decision discharge home tomorrow will be scheduled with family physician for hospital follow-up in a week Cardiology follow-up appointment scheduled next week Vital Signs: Date Time Temp Pulse Resp B/P (MAP) Pulse Ox O2 Delivery O2 Flow Rate FiO2 11/28/17 07:15 36.4 57 18 125/79 (94) 92 Room Air 11/28/17 04:09 Room Air 11/28/17 03:11 36.6 60 20 114/63 (80) 92 Room Air 11/28/17 00:00 Room Air 11/27/17 23:15 36.9 66 20 104/59 (74) 94 Room Air 11/27/17 20:00 94 Room Air 11/27/17 19:09 37.1 71 18 105/66 (79) 94 Room Air 11/27/17 16:00 90 Room Air 11/27/17 15:53 36.6 65 18 110/69 (83) 90 Room Air 11/27/17 15:00 90 Room Air 11/27/17 12:03 36.6 60 16 114/67 (83) 94 Nasal Cannula 2.0 11/27/17 12:00 97 Nasal Cannula 2.0 11/27/17 11:05 92 Lab Results: Results Past 24 Hours Test 11/28/17 06:20 Range/Units White Blood Count 3.23 4.8-10.8 K/uL Red Blood Count 4.09 4.2-5.4 M/uL Hemoglobin 12.1 12.0-16.0 g/dL Hematocrit 36.8 37-47 % Mean Corpuscular Volume 90.0 80-100 fL Mean Corpuscular Hemoglobin 29.6 25-34 pg Mean Corpuscular Hemoglobin Concent 32.9 32-36 g/dl RDW Standard Deviation 49.4 36.4-46.3 fL RDW Coefficient of Variation 14.8 11.5-14.5 % Platelet Count 191 130-400 K/uL Mean Platelet Volume 10.4 7.4-10.4 fL Prothrombin Time 26.6 9.0-12.0 SECONDS Prothromb Time International Ratio 2.6 0.9-1.1 Activated Partial Thromboplast Time 39.0 21.0-31.0 SECONDS Partial Thromboplastin Ratio 1.5 Sodium Level 141 136-145 mmol/L Potassium Level 4.5 3.5-5.1 mmol/L Chloride Level 106 98-107 mmol/L Carbon Dioxide Level 30 21-32 mmol/L Anion Gap 5.0 3-11 mmol/L Blood Urea Nitrogen 36 7-18 mg/dl Creatinine 1.30 0.60-1.20 mg/dl Est Creatinine Clear Calc Drug Dose 42.5 ml/min Estimated GFR () 43.9 Estimated GFR (Non- 37.9 BUN/Creatinine Ratio 27.7 10-20 Random Glucose 93 70-99 mg/dl Calcium Level 8.3 8.5-10.1 mg/dl
[2017-11-27] MEDS: ATORVASTATIN 10 MG TAB PO SCH (21:36)
[2017-11-28 03:11] VITALS: BP 114/63; PULSE 60; TEMP 36.6; O2SAT 92
[2017-11-28 06:53] LABS: HEMATOCRIT 36.8 % (37-47); HEMOGLOBIN 12.1 g/dL (12.0-16.0); MEAN CORPUSCULAR HEMOGLOBIN 29.6 pg (25-34); MEAN CORPUSCULAR HGB CONC 32.9 g/dl (32-36); MEAN PLATELET VOLUME 10.4 fL (7.4-10.4); PLATELET COUNT 191 K/uL (130-400); RED CELL DISTRIBUTION WIDTH CV 14.8 % (11.5-14.5); RED CELL DISTRIBUTION WIDTH SD 49.4 fL (36.4-46.3); WHITE BLOOD COUNT 3.23 K/uL (4.8-10.8)
[2017-11-28 07:10] LABS: INR 2.6 (0.9-1.1)
[2017-11-28 07:15] VITALS: BP 125/79; PULSE 57; TEMP 36.4; O2SAT 92
[2017-11-28 07:29] LABS: CALCIUM 8.3 mg/dl (8.5-10.1); CREATININE 1.3 mg/dl (0.60-1.20); POTASSIUM 4.5 mmol/L (3.5-5.1)
[2017-11-28] MEDS ORDERED: AMIO400T3 PO ×2 (08:10→15:46)
[2017-11-28] MEDS ORDERED: CRD200 PO ×2 (08:10→15:46)
[2017-11-28] MEDS ORDERED: LSX40 PO (08:10)
--- NOTE | 2017-11-28 08:10 | Discharge Instructions ---
Discharge Instructions Date of Service Nov 28, 2017. Admission Reason for Admission: Rapid Atrial Fibrillation Discharge Discharge Diagnosis / Problem: A. fib RVR status post cardioversion/acute diastolic heart failure Discharge Goals Goal(s): Decrease discomfort, Improve disease control, Diagnostic testing, Therapeutic intervention Activity Recommendations Activity Limitations: as noted below (As tolerated) . Instructions / Follow-Up Instructions / Follow-Up Hospital follow-up: 12/02/2017 1:20 PM Kike Albrecht MD [facility] LAB WORK: BASIC METABOLIC PANEL /PT/INR CHECK ON 12/02/17 COUMADIN DOSE REDUCED-2.5 MG DAILY - FOR DRUG INTERACTION WITH AMIODARONE -NEW MEDICATION FOR HEART RATE CONTROL PLEASE FOLLOW UP WITH COUMADIN CLINIC FOR FURTHER ADJUSTMENT OF DOSE Cardiology follow-up: 12/02/2017 10:00 AM Bhavesh Machado, Cardiology, [facility] Diet Patient's current hospital diet: AHA Diet (Heart Healthy) Discharge Diet Recommended Diet: AHA Diet (Heart Healthy) Fluid Restriction: 1800 ml (7 cups) Procedures Procedures Performed: ELEANOR/Cardioversion Start time: Stop time: Conscious sedation achieved with a total of 3mg of Versed and 50mcg of Fentanyl Pending Studies Studies pending at discharge: no Medical Emergencies . Who to Call and When: Medical Emergencies: If at any time you feel your situation is an emergency, please call 911 immediately. . Non-Emergent Contact Non-Emergency issues call your: Primary Care Provider . . "Provider Documentation" section prepared by Maria Victoria Barney. .
[2017-11-28] MEDS: LISINOPRIL 20 MG TAB PO SCH (08:28)
[2017-11-28] MEDS: METOPROLOL SUCC 25MG EXT REL TAB PO SCH ×2 (08:28→08:34)
[2017-11-28] MEDS: PANTOprazole SOD 40 MG TAB PO SCH (08:29)
[2017-11-28] MEDS: AMIODARONE 200 MG TAB PO SCH ×2 (08:29→16:22)
[2017-11-28] MEDS: FUROSEMIDE 40 MG TAB PO SCH (08:30)
[2017-11-28] MEDS: POTASSIUM CHLORIDE 10 MEQ TABCR PO SCH (08:31)
[2017-11-28] MEDS: PREGABALIN 50 MG CAP PO SCH (08:38)
[2017-11-28 12:20] VITALS: BP 89/54; PULSE 68; TEMP 37; O2SAT 93
[2017-11-28 12:26] VITALS: BP 125/79; PULSE 57; TEMP 36.4; O2SAT 92
[2017-11-28] MEDS ORDERED: CMD25 PO (15:52)
--- NOTE | 2017-11-28 16:55 | Discharge Summary ---
Discharge Summary Date of Service Nov 28, 2017. Discharge Summary Admission Date: Nov 18, 2017 at 18:05 Discharge Date: Nov 28, 2017 Discharge Disposition: Home Principal Diagnosis: Peter estrada RVR status post cardioversion/acute diastolic heart failure Medication Reconciliation New Medications: Amiodarone Hcl (Pacerone) 400 Mg Tab 400 MG PO DAILY for 30 Days, #30 TAB start taking on next thursday12/05/17 Warfarin Sod (Coumadin) 2.5 Mg Tab 2.5 MG PO DAILY for 30 Days, #30 TABS 2 Refills Amiodarone HCl (Amiodarone HCl) 200 Mg Tab 400 MG PO BIDM for 7 Days, #28 TAB for 1 week continue till 12/04/17 Furosemide (Furosemide) 40 Mg Tab 40 MG PO QAM for 30 Days, #30 TAB Continued Medications: Atorvastatin (Lipitor) 10 Mg Tab 10 MG PO HS, TAB Fluticasone Propionate (Nasal) (Flonase Allergy Relief) 50 Mcg/Act Spr 2 SPRAYS DASHA DAILY PRN for Allergy Symptoms Lisinopril (Zestril) 20 Mg Tab 20 MG PO QAM Metoprolol Succ (Toprol Xl) (Toprol-Xl) 25 Mg Tabcr 25 MG PO QAM, TAB Pantoprazole (Pantoprazole Sodium) 40 Mg Tab 40 MG PO QAM Potassium Chloride (Micro-K Ext Rel) 10 Meq Capcr 10 MEQ PO BID, CAP Pregabalin (Lyrica) 50 Mg Cap 50 MG PO BID, CAP Tramadol (Ultram) 50 Mg Tab 50 MG PO Q6H PRN for Pain Warfarin Sodium (Warfarin Sodium) 5 Mg Tab 0 PO UD, TAB Dose as of 11/12/17: 2.5 mg MWF 5 mg TuThSaSu Discontinued Medications: Furosemide (Lasix) 20 Mg Tab 20 MG PO BID Admission Information HPI (per Admitting provider): 82-year-old female followed by Dr. Albrecht. 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 History of paroxysmal atrial fibrillation associated with pulmonary embolism in 2017. Other problems as noted below. Seen in clinic today by Dr. Feliciano. Found to be in atrial fibrillation with rapid ventricular response. Referred to the hospital for further evaluation and treatment. Patient notes fatigue and dyspnea on exertion. No chest pain or palpitations. She has chronic lower extremity edema that has gradually worsened. . Physical Exam (per Admitting): General Appearance: WD/WN, no apparent distress Head: normocephalic, atraumatic Eyes: normal inspection, PERRL, EOMI, sclerae normal, + pertinent finding ( Conjunctivae clear) ENT: normal ENT inspection, hearing grossly normal Neck: thyroid normal, trachea midline Respiratory/Chest: lungs clear (Auscultation and percussion), no respiratory distress, no accessory muscle use Cardiovascular: + irregularly irregular, + pertinent finding (No murmurs or gallops appreciated; no JVD; 2-3+ pretibial edema; pedal pulses diminished) Abdomen/GI: normal bowel sounds, non tender, soft, no organomegaly Extremities/Musculoskelatal: + pertinent finding (No cyanosis; no digital clubbing; no calf tenderness) 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 EOMI, no facial palsy, no dysarthria), no motor/sensory deficits (Motor strength extremities grossly intact), alert, normal mood/affect, oriented x 3, + pertinent finding (Dystonic movements of tongue) Skin: normal color, warm/dry, no rash Lymphatic: no adenopathy (Cervical) Hospital Course 1.Paroxysmal A. fib Status post successful DC cardioversion Remains in sinus rhythm rate controlled Appreciate input from cardiology amiodarone dose adjusted 400 mg twice daily will be changed to 400 mg daily in a week and eventually a maintenance dose of 200 mg daily after cardiology eval Cardiology follow-up next week Continue metoprolol INR> 3.5 Continue to hold Coumadin -Resume as INR is less than 3 2. Acute CHF with diastolic dysfunction: Due to rapid A. fib Patient is continued with Lasix and JASMYNE inhibitor - Discharge with Lasix 40 mg daily Continue prior dose of lisinopril 3. Acute kidney injury /CKD stage III: -Resolved, renal function back to baseline due to diuresis -Lasix dose adjusted to 40 mg p.o. daily (from Lasix 40 mg IV twice daily)/ continue lisinopril -Follow labs in a.m. 4. Hypertension Blood pressure stable CODE STATUS: Full DVT PROPHYLAXIS INR> 3 DISPOSITION: Patient refused to go to rehab Also not interested in home health visiting nurse Patient has normal cognitive function able to make her own decision discharge home tomorrow will be scheduled with family physician for hospital follow-up in a week Cardiology follow-up appointment scheduled next week Total time spent on discharge = This includes examination of the patient, discharge planning, medication reconciliation, and communication with other providers. Discharge Instructions Discharge Instructions Date of Service Nov 28, 2017. Admission Reason for Admission: Rapid Atrial Fibrillation Discharge Discharge Diagnosis / Problem: A. fib RVR status post cardioversion/acute diastolic heart failure Discharge Goals Goal(s): Decrease discomfort, Improve disease control, Diagnostic testing, Therapeutic intervention Activity Recommendations Activity Limitations: as noted below (As tolerated) . Instructions / Follow-Up Instructions / Follow-Up Hospital follow-up: 12/02/2017 1:20 PM Kike Albrecht MD [facility] LAB WORK: BASIC METABOLIC PANEL /PT/INR CHECK ON 12/02/17 COUMADIN DOSE REDUCED-2.5 MG DAILY - FOR DRUG INTERACTION WITH AMIODARONE -NEW MEDICATION FOR HEART RATE CONTROL PLEASE FOLLOW UP WITH COUMADIN CLINIC FOR FURTHER ADJUSTMENT OF DOSE Cardiology follow-up: 12/02/2017 10:00 AM Bhavesh Machado DO Cardiology, [facility] Hospital Diet Patient's current hospital diet: AHA Diet (Heart Healthy) Discharge Diet Recommended Diet: AHA Diet (Heart Healthy) Fluid Restriction: 1800 ml (7 cups) Procedures Procedures Performed: ELEANOR/Cardioversion Start time: Stop time: Conscious sedation achieved with a total of 3mg of Versed and 50mcg of Fentanyl Pending Studies Studies pending at discharge: no Medical Emergencies . Who to Call and When: Medical Emergencies: If at any time you feel your situation is an emergency, please call 911 immediately. . Non-Emergent Contact Non-Emergency issues call your: Primary Care Provider . . "Provider Documentation" section prepared by Maria Victoria Barney. .
[2017-11-28] MEDS ORDERED: WARFARIN SOD 2.5 MG TAB PO ONE (17:00)
== END 2017-11-28 17:16 | disposition home or self-care (01) | DRG 291 ==
LOC: C.EDC 14:25 → EDBD 14:25 → C.2T 18:05 → ENRESERV 19:37
PROVIDERS: ADMIT Hospitalist; ATTEND Hospitalist
PROC: 5A2204Z Restoration of Cardiac Rhythm, Single (ICD-10-PCS; principal; 2017-11-19 10:37)
PROC: 5A2204Z Restoration of Cardiac Rhythm, Single (ICD-10-PCS; 2017-11-26)
DX: I13.0 Hypertensive heart and chronic kidney disease with heart failure and stage 1 through stage 4 chronic kidney disease, or unspecified chronic kidney disease (principal); I50.33 Acute on chronic diastolic (congestive) heart failure; N17.9 Acute kidney failure, unspecified; I48.0 Paroxysmal atrial fibrillation; R79.1 Abnormal coagulation profile; E78.5 Hyperlipidemia, unspecified; N18.3 Chronic kidney disease, stage 3 (moderate); K21.9 Gastro-esophageal reflux disease without esophagitis; Z51.81 Encounter for therapeutic drug level monitoring; Z79.899 Other long term (current) drug therapy; Z79.01 Long term (current) use of anticoagulants; Z85.3 Personal history of malignant neoplasm of breast; Z86.718 Personal history of other venous thrombosis and embolism; Z86.711 Personal history of pulmonary embolism; Z95.828 Presence of other vascular implants and grafts; Z87.891 Personal history of nicotine dependence; Z88.0 Allergy status to penicillin; Z91.048 Other nonmedicinal substance allergy status; Z82.3 Family history of stroke; Z80.3 Family history of malignant neoplasm of breast; Z80.7 Family history of other malignant neoplasms of lymphoid, hematopoietic and related tissues; Z80.42 Family history of malignant neoplasm of prostate

== ENCOUNTER 2017-12-02 15:01 | Emergency (ER) | payer MEDICARE, OTHER ==
[~2017-12-02] VITALS: Ht 175.3 cm; Wt 108.4 kg
[~2017-12-02 15:01] MED LIST changes: -ACET-1257 PO; +AMIO400T3 PO; +CMD25 PO; +CRD200 PO; +FLUT0.15 NAE; -FURO-85 PO; +LSX40 PO; +LYR/50 PO; +METO25TA3 PO; -MULT-506 PO; +TRAM-10 PO
[2017-12-02 15:07] VITALS: TEMP 37.1; Ht 175.3 cm; Wt 108.4 kg
[2017-12-02] MEDS ORDERED: TRAMADOL HCL 50 MG TAB PO STA (15:25)
--- NOTE | 2017-12-02 15:28 | EMERGENCY ROOM VISIT NOTE ---
History Report prepared by Jie: Constantino Valdez Under the Supervision of: Dr. Khoa Boyce M.D. First contact with patient: 15:10 Chief Complaint: OTHER COMPLAINT Stated Complaint: LEG WEAKNESS History of Present Illness The patient is an 82 year old white female with a past medical history of adrenal adenoma, congestive heart failure, DVT (deep venous thrombosis), dyslipidemia, hiatal hernia, history of breast cancer, history of intracranial hemorrhage, history of pulmonary embolism, paroxysmal atrial fibrillation, and pulmonary embolus, who presents to the Emergency Room following a falling episode that occurred 1 hours and 15 minutes prior to arrival. The patient states that she was walking into her house following a doctors appointment with her PCP when her legs simply "gave out" and she fell to the ground. The patient did not really fall forward or backward, but simply dropped onto the ground under her own weight. She usually ambulates with a walker.. She denies any lightheadedness, dizziness, back pain or chest pain prior to the episode. She did not hit her head on the fall. She did not lose continence of her bladder. The patient is on Coumadin. Source of History: patient Onset: 1 hour 15 minutes REGISTERED NURSE AMBULATORY Position: leg Quality: other (weakness) Associated Symptoms: No headache, No chest pain Note: No dizziness, no light headedness Review of Systems See HPI for pertinent positives and negatives. A total of ten systems were reviewed and were otherwise negative. Past Medical & Surgical Medical Problems: (1) Adrenal adenoma (2) Congestive heart failure (3) DVT (deep venous thrombosis) (4) Dyslipidemia (5) Hiatal hernia (6) History of breast cancer (7) History of intracranial hemorrhage (8) History of pulmonary embolism (9) Paroxysmal atrial fibrillation (10) Pulmonary embolus Surgical Problems: (1) H/O lumpectomy (2) Status post insertion of inferior vena caval filter (3) Status post partial mastectomy (4) Status post right knee replacement Family History Omitted secondary to pain. Social History Smoking Status: Former Smoker Drug Use: none Marital Status: single Housing Status: lives alone Occupation Status: retired Current/Historical Medications Scheduled Amiodarone HCl (Amiodarone HCl), 400 MG PO BIDM Amiodarone Hcl (Pacerone), 400 MG PO DAILY Atorvastatin (Lipitor), 10 MG PO HS Furosemide (Furosemide), 40 MG PO QAM Lisinopril (Zestril), 20 MG PO QAM Metoprolol Succ (Toprol Xl) (Toprol-Xl), 25 MG PO QAM Pantoprazole (Pantoprazole Sodium), 40 MG PO QAM Potassium Chloride (Micro-K Ext Rel), 10 MEQ PO BID Pregabalin (Lyrica), 50 MG PO BID Warfarin Sod (Coumadin), 2.5 MG PO DAILY Warfarin Sodium (Warfarin Sodium), 0 PO UD Scheduled PRN Fluticasone Propionate (Nasal) (Flonase Allergy Relief), 2 SPRAYS DASHA DAILY PRN for Allergy Symptoms Tramadol (Ultram), 50 MG PO Q6H PRN for Pain Allergies Coded Allergies: Nickel (Verified Allergy, Intermediate, rash to nickel sulfate, 12/02/17) Penicillins (Unverified Allergy, Intermediate, HIVES, 12/02/17) Physical Exam Vital Signs Date Time Temp Pulse Resp B/P (MAP) Pulse Ox O2 Delivery O2 Flow Rate FiO2 12/02/17 21:42 75 16 134/76 98 12/02/17 20:43 56 18 115/53 95 Room Air 12/02/17 19:10 75 16 110/62 98 Room Air 12/02/17 19:08 54 12/02/17 18:40 56 16 109/59 96 Room Air 12/02/17 16:55 85 16 129/62 95 Room Air 12/02/17 15:46 94 Room Air 12/02/17 15:31 59 12/02/17 15:07 37.1 59 16 103/43 94 Room Air Physical Exam GENERAL: Obese, wearing glasses, Awake, alert, well-appearing, NAD HENT: Normocephalic, atraumatic. EYES: Normal conjunctiva. Sclera non-icteric. NECK: Supple. No nuchal rigidity. FROM. RESPIRATORY: CTAB, no rhonchi, wheezing, crackles CARDIAC: RRR, no MRG ABDOMEN: Soft, NTND, BS+ BACK: No reproducible lower back TTP. No paraspinal TTP. LLE Positive straight leg raise. MSK: No chest wall TTP, no LE edema. There is a little bit of bruising on the medial aspect of the right knee. NEURO: GCS 15, CN 2-12 intact, moves all 4s on command. 4/5 strength in bilateral lower extremities. Good flexion/extension of knee and ankle. SKIN: No rash or jaundice noted. Medical Decision & Procedures ER Provider Diagnostic Interpretation: Radiology results as stated below per my review and radiologist interpretation: CHEST ONE VIEW PORTABLE CLINICAL HISTORY: KEYSHA, h/o CHF, weakness COMPARISON STUDY: Chest radiograph November 26, 2017. FINDINGS: Lung volumes are normal. There is no pneumothorax or pleural effusion. Cardiomegaly is unchanged. A large hiatal hernia is present. The appearance of the chest is unchanged. Left basilar opacity is unchanged. IMPRESSION: No acute cardiopulmonary findings. No change in appearance of the chest. Left basilar opacity which is unchanged and most likely related to a large hiatal hernia. Electronically signed by: Kelton Cannon M.D. 12/02/2017 6:42 PM Dictated Date/Time: 12/02/2017 6:40 PM L KNEE 3 VIEWS CLINICAL HISTORY: Left knee pain and bruising following fall. COMPARISON: None FINDINGS: Alignment of the left knee is anatomic. There is no acute fracture or joint effusion. There is moderate lateral compartment joint space narrowing. There is extensive tricompartmental osteophytosis. IMPRESSION: 1. No acute fracture or joint effusion of the left knee. 2. 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 Electronically signed by: Kelton Cannon M.D. 12/02/2017 4:13 PM Dictated Date/Time: 12/02/2017 4:[address] WITHOUT CONTRAST CLINICAL HISTORY: s/p fall, knee pain, radicular LLE pain COMPARISON STUDY: No previous studies for comparison. FINDINGS: For purposes of numbering on this exam, the L5-S1 disc space is assigned to axial image 237 of 280. There is mild levoscoliosis of the lumbar spine. There is 7 mm of anterolisthesis of L4 and L5. There is marked multilevel disc space narrowing with ossified ptosis and vacuum disc phenomenon. There is slight retrolisthesis of L1 on L2 and L2 on L3. There is severe multilevel facet arthrosis. There is no acute cervical spine fracture or suspicious lesion. The sacroiliac joints are intact. Paravertebral soft tissues are unremarkable. The central canal and neural foramen are suboptimally assessed by CT. However, there is suspected moderate to severe central canal stenosis at L4-L5. Moderate multilevel neural foraminal stenosis is present. An IVC filter is incidentally noted. Low-attenuation bilateral adrenal nodules likely reflect adenomas. IMPRESSION: 1. No acute lumbar spine fracture or subluxation. 2. Mild levoscoliosis of the lumbar spine and grade I anterolisthesis of L4 and L5. 3. Severe multilevel disc space narrowing with vacuum disc phenomenon and severe multilevel facet arthrosis. Suboptimal evaluation of the central canal and neural foramen given CT technique. Suspected moderate to severe central canal stenosis at L4-L5. Electronically signed by: Kelton Cannon M.D. 12/02/2017 5:07 PM Dictated Date/Time: 12/02/2017 5:[address] SCAN OF PELVIS WITHOUT IV CONTRAST CLINICAL HISTORY: Fall. Bilateral leg weakness. COMPARISON STUDY: No priors. TECHNIQUE: CT scan of the bony pelvis is performed from the pelvic inlet to the proximal femora. Images are reviewed in the axial, sagittal, and coronal planes. IV contrast was not administered as per the referring clinician. A dose lowering technique was utilized adhering to the principles of ALARA. Note that interpretation is suboptimal without plain film correlate. FINDINGS: The skeletal structures are osteopenic. No fracture is seen involving the hips or bony pelvis. The visualized lower lumbar spine appears intact. Advanced arthritic change is seen in the hips, left greater than right, where there is near complete loss of the joint space, extensive bony sclerosis, and subchondral cyst formation. No lytic or blastic lesion is seen. Mild degenerative change is noted in the sacroiliac joints. Lumbosacral spondylosis is partially visualized. There is generalized atrophy of the pelvic musculature. Atherosclerotic calcification is noted in the iliac vessels. No soft tissue hematoma is identified. There is rectosigmoid fecal retention. There is no evidence of bowel obstruction. Advanced diverticulosis is noted in the partially imaged colon. There is no CT evidence of acute diverticulitis in the pelvis. No pelvic sidewall or inguinal lymphadenopathy is identified. The bladder, uterus, and adnexa are normal as imaged. An IVC filter is noted on the cavalry scout tomogram. IMPRESSION: 1. Osteopenia with no acute bony abnormality identified involving the hips or pelvis. 2. 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 3. There is no evidence of soft tissue injury in the pelvis. 4. Advanced colonic diverticulosis without CT evidence of acute diverticulitis in the pelvis. Dictated: 12/02/2017 5:05 PM Transcribed: 12/02/2017 5:53 PM [place] Electronically signed by: Tommie Thomas M.D. 12/02/2017 6:01 PM Dictated Date/Time: 12/02/2017 5:05 PM MRI OF THE LUMBAR SPINE WITHOUT IV CONTRAST CLINICAL HISTORY: Fall. Lower extremity weakness. COMPARISON STUDY: CT scan of the lumbar spine dated 12/02/2017. TECHNIQUE: MRI of the lumbar spine is performed utilizing various T1 and T2-weighted sequences in the axial and sagittal planes. IV contrast was not administered for this examination. The examination is degraded by motion artifact and scoliosis. FINDINGS: Lumbar spine: Marrow signal intensity is heterogeneous. Vertebral body height is maintained throughout the lumbar spine. There is minimal retrolisthesis at L1-L2, L2-L3, and L3-L4. 9 mm of anterolisthesis is seen at L4-L5. There is no marrow edema identified to suggest acute fracture. The transverse and spinous processes appear intact. There is no evidence of spondylolysis. Anterior osteophytes are seen throughout. Advanced chronic degenerative endplate change is seen at all levels, greatest at L1-L2 and L2-L3. Mild degenerative endplate edema is seen at T12-L1 and L3-L4. No destructive bony lesion is suggested. Intervertebral discs: There is advanced degenerative disc desiccation throughout the lumbar spine. Severe loss of height is identified at T12-L1, L1-L2, L2-L3, and L3-L4. Loss of height is moderate at L4-L5 and L5-S1. Spinal cord: The partially imaged spinal cord is normal in morphology and signal intensity. The conus medullaris terminates at the T12-L1 interspace. The nerve roots of the cauda equina are normal in morphology and signal intensity. L1-L2: There is a small posterior disc osteophyte complex. No significant acquired compromise of the central canal is seen at this level. There is bilateral subarticular stenosis, right greater than left. The neural foramina are patent. L2-L3: There is a small posterior disc osteophyte complex. This is eccentric to the right and likely abuts the transiting right-sided nerve roots. There is no significant acquired compromise of the central canal at this level. There is severe right-sided subarticular stenosis. Facet arthropathy causes mild right neural foraminal narrowing. L3-L4: There is a small posterior disc osteophyte complex. Annular fissure is noted. There is no significant acquired compromise of the central canal. Facet arthropathy is of no consequence. The neural foramina are patent. L4-L5: There is a posterior disc bulge with annular fissure. In conjunction with hypertrophy of the ligamentum flavum and anterolisthesis, this causes moderate central canal stenosis with a minimum AP canal diameter of 6 mm. There is bilateral subarticular stenosis, right greater than left. This may impinge on the exiting right L4 nerve root. The disc bulge abuts the transiting bilateral L5 nerve roots. Facet arthropathy causes minimal left-sided neural foraminal stenosis. L5-S1: The central canal is widely patent. The neural foramina are clear. Facet arthropathy is of no consequence. Sacrum: The visualized sacrum is normal in morphology and signal intensity. Soft tissues: There is diffuse fatty atrophy of the paraspinous and iliopsoas musculature. The partially visualized kidneys are atrophic. No retroperitoneal lymphadenopathy is identified. IMPRESSION: 1. There is no MRI evidence of fracture. 2. There is no disc herniation. 3. Multilevel lumbosacral spondylosis as above with acquired compromise of the central canal at L4-L5. See discussion for detailed [id number] analysis. 4. Advanced degenerative disc disease with associated endplate change as above. Dictated: 12/02/2017 8:23 PM Transcribed: 12/02/2017 8:57 PM EMERSON_Mi Electronically signed by: Tommie Thomas M.D. 12/02/2017 9:41 PM Dictated Date/Time: 12/02/2017 8:23 PM Laboratory Results 12/02/17 16:20 Red Blood Count 4.38, Mean Corpuscular Volume 90.2, Mean Corpuscular Hemoglobin 29.5, Mean Corpuscular Hemoglobin Concent 32.7, Mean Platelet Volume 10.9, Neutrophils (%) (Auto) 75.9, Lymphocytes (%) (Auto) 9.8, Monocytes (%) (Auto) 10.2, Eosinophils (%) (Auto) 3.3, Basophils (%) (Auto) 0.4, Neutrophils # (Auto ) 5.28, Lymphocytes # (Auto) 0.68, Monocytes # (Auto) 0.71, Eosinophils # (Auto ) 0.23, Basophils # (Auto) 0.03 12/02/17 16:20 Test 12/02/17 16:20 12/02/17 17:08 12/02/17 17:45 White Blood Count 6.96 K/uL (4.8-10.8) Red Blood Count 4.38 M/uL (4.2-5.4) Hemoglobin 12.9 g/dL (12.0-16.0) Hematocrit 39.5 % (37-47) Mean Corpuscular Volume 90.2 fL (80-100) Mean Corpuscular Hemoglobin 29.5 pg (25-34) Mean Corpuscular Hemoglobin Concent 32.7 g/dl (32-36) Platelet Count 291 K/uL (130-400) Mean Platelet Volume 10.9 fL (7.4-10.4) Neutrophils (%) (Auto) 75.9 % Lymphocytes (%) (Auto) 9.8 % Monocytes (%) (Auto) 10.2 % Eosinophils (%) (Auto) 3.3 % Basophils (%) (Auto) 0.4 % Neutrophils # (Auto) 5.28 K/uL (1.4-6.5) Lymphocytes # (Auto) 0.68 K/uL (1.2-3.4) Monocytes # (Auto) 0.71 K/uL (0.11-0.59) Eosinophils # (Auto) 0.23 K/uL (0-0.5) Basophils # (Auto) 0.03 K/uL (0-0.2) RDW Standard Deviation 50.8 fL (36.4-46.3) RDW Coefficient of Variation 15.3 % (11.5-14.5) Immature Granulocyte % (Auto) 0.4 % Immature Granulocyte # (Auto) 0.03 K/uL (0.00-0.02) Anion Gap 6.0 mmol/L (3-11) Est Creatinine Clear Calc Drug Dose 22.8 ml/min Estimated GFR () 20.4 Estimated GFR (Non- 17.6 BUN/Creatinine Ratio 23.7 (10-20) Calcium Level 8.3 mg/dl (8.5-10.1) Total Bilirubin 0.3 mg/dl (0.2-1) Direct Bilirubin mg/dl (0-0.2) Aspartate Amino Transf (AST/SGOT) 25 U/L (15-37) Alanine Aminotransferase (ALT/SGPT) 25 U/L (12-78) Alkaline Phosphatase 59 U/L (45-117) Troponin I < 0.015 ng/ml (0-0.045) Pro-B-Type Natriuretic Peptide 331 pg/ml (0-1800) Total Protein 7.8 gm/dl (6.4-8.2) Albumin 2.9 gm/dl (3.4-5.0) Chemistry Specimen Hemolysis Prothrombin Time 89.0 SECONDS (9.0-12.0) Prothromb Time International Ratio 8.8 (0.9-1.1) Activated Partial Thromboplast Time 48.8 SECONDS (21.0-31.0) Partial Thromboplastin Ratio 1.9 Urine Color YELLOW Urine Appearance CLEAR (CLEAR) Urine pH 5.0 (4.5-7.5) Urine Specific [place] 1.017 (1.000-1.030) Urine Protein NEG (NEG) Urine Glucose (UA) NEG (NEG) Urine Ketones NEG (NEG) Urine Occult Blood NEG (NEG) Urine Nitrite NEG (NEG) Urine Bilirubin NEG (NEG) Urine Urobilinogen NEG (NEG) Urine Leukocyte Esterase NEG (NEG) Laboratory results reviewed by me Medications Administered Medications (Trade) Dose Ordered Sig/Claire Route Start Time Stop Time Status Last Admin Dose Admin Tramadol HCl (Ultram Tab) 25 mg NOW STAT PO 12/02/17 15:25 12/02/17 15:28 DC 12/02/17 15:51 25 MG Sodium Chloride 500 ml @ 250 mls/hr Q2H STAT IV 12/02/17 17:59 12/02/17 19:58 DC 12/02/17 17:59 250 MLS/HR ECG Per My Interpretation Rate (beats per minute): 57 Rhythm: sinus bradycardia Findings: other (normal intervals, normal axis, T-wave flattening in the inferior vs. motion artifact) Comparison ECG Date: 11/26/2017 Change: no significant change Change: Artifact has resolved. ED Course 1520: The patient was evaluated in room B5. A complete history and physical exam was performed. 1735: I asked the patient if who she has seen for ortho in the past. She states that Dr. Loredo has done her surgeries in the past. She wishes to not see him ever again. 1747: I discussed the case with Dr. Haddad - [facility]. He states to ambulate the patient and if she cannot walk she needs to stay inpatient. He also asks that I order an MRI of the Lumbar Spine. 174: The nurse called me and states that the patient ambulated about 30 feet. She notes the patient felt comfortable on her feet. Medical Decision The patient is an 82 year old white female with a past medical history of adrenal adenoma, congestive heart failure, DVT (deep venous thrombosis), dyslipidemia, hiatal hernia, history of breast cancer, history of intracranial hemorrhage, history of pulmonary embolism, paroxysmal atrial fibrillation, and pulmonary embolus, who presents to the Emergency Room following a falling episode that occurred 1 hours and 15 minutes prior to arrival. Differential diagnosis: Etiologies such as musculoskeletal, disc herniation, fracture, aortic disease, metastatic disease, cord compression, discitis, infection, renal colic, gastrointestinal, acute exacerbation of chronic back pain, sciatica, cauda equina, as well as others were entertained. Prior records were reviewed. Patient was seen and evaluated at the bedside. Patient was presenting after having a primary care visit and blood drawn today. Patient states that when she returned home that her bilateral lower extremities buckled that she did fall to the ground. Patient states she just kind of slumped to her knees. Patient denies striking her head. She denies any LOC. Patient does take Coumadin given her prior history of DVT. On exam the patient is able to raise the bilateral lower extremities although she has 4 out of 5 strength bilaterally. Patient does have a positive straight leg raise on the left side. Patient does not complain of any low back and pelvis pain. Patient did have blood work completed along with a CT of the lumbar spine and pelvis. Patient also did have a plain knee film. Patient's knee film negative. Patient CT of the pelvis just shows arthritic change. Patient CT lumbar spine concerning for moderate to severe spinal canal stenosis. Patient' s blood work did show that she does have an elevated INR. Patient's white blood cell count is normal. H&H normal. Patient does have mild change in her kidney function. Patient was given 500 cc of fluid over 2 hours. Given the patient's central canal stenosis I did order an MRI and speak with the on-call orthopedic spinal specialist. He recommended the MRI and stated that if the patient could not walk that she should be admitted and he would be on as a consult. If she could tolerate ambulation then she can be seen either tomorrow or [place]. I did discuss the case managers to arrange a follow-up appointment. Given the patient's AK I she was given some fluids. Patient was reassessed after MRI. Patient was sleeping comfortably. After waking her I did discuss the plan of care. I did discuss the patient does have some dehydration and mild kidney dysfunction. Patient was given the fluids. Patient does have some mild hyperkalemia. Given this in the coincidence of the renal dysfunction I did state that the patient should stop taking her lisinopril and should follow-up with her PCP in order to discuss a new antihypertensive agent. She may continue this if her kidney dysfunction hyperkalemia resolved. Patient again is very well-appearing. She is comfortable with following up as an outpatient. I did discuss the patient with case managers help you arrange a ride for home. Patient was discharged home. Consults Time Called: 1740 Consulting Physician: Dr. Catie Mccann [facility] Returned Call: [phone] I discussed the case with Dr. [facility]. He states to ambulate the patient and if she cannot walk she needs to stay inpatient. He also asks that I order an MRI of the Lumbar Spine. Impression Primary Impression: Dehydration Additional Impressions: Fall Hyperkalemia Herniation of intervertebral disc Scribe Attestation The scribe's documentation has been prepared under my direction and personally reviewed by me in its entirety. I confirm that the note above accurately reflects all work, treatment, procedures, and medical decision making performed by me. Departure Information Dispostion Home / Self-Care Referrals Kike Albrecht M.D. (PCP) Miles HaddadDSaqibO. Patient Instructions Back Pain - [facility], Dehydration, Hyperkalemia Dc, My [facility] Additional Instructions Please return to the emergency department if you have worsening or recurrent symptoms not amenable to at-home treatment. Please call for a follow-up appointment with her primary care physician. Please take your medications as prescribed. If you have other concerns and/or complaints please feel free to also call your primary care physician's office or return the ED for further evaluation, management, and treatment. Please stop taking her lisinopril. Please follow-up with your primary care physician in order to discuss taking a different antihypertensive. Take your medications as prescribed. You have been examined and treated today on an emergency basis only. This is not a substitute for, or an effort to provide, complete comprehensive medical care. It is impossible to recognize and treat all injuries or illnesses in a single emergency department visit. It is therefore important that you follow up closely with [facility], your PCP, and/or your specialist(s). Call as soon as possible for an appointment. Thank you for your time and consideration. I look forward to speaking with you again soon. Please don't hesitate to call us if you have any questions. Problem Qualifiers Additional Impressions: Fall Encounter type: initial encounter Qualified Codes: W19.XXXA - Unspecified fall, initial encounter Herniation of intervertebral disc Spinal region: lumbar Qualified Codes: M51.26 - Other intervertebral disc displacement, lumbar region
[2017-12-02 15:46] VITALS: O2SAT 94
--- NOTE | 2017-12-02 16:14 | DIAGNOSTIC IMAGING REPORT ---
L KNEE 3 VIEWS CLINICAL HISTORY: Left knee pain and bruising following fall. COMPARISON: None FINDINGS: Alignment of the left knee is anatomic. There is no acute fracture or joint effusion. There is moderate lateral compartment joint space narrowing. There is extensive tricompartmental osteophytosis. IMPRESSION: 1. No acute fracture or joint effusion of the left knee. 2. 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 Electronically signed by: Kelton Cannon M.D. 12/02/2017 4:13 PM Dictated Date/Time: 12/02/2017 4:12 PM
[2017-12-02 16:36] LABS: BASO % 0.4 %; BASO ABS # 0.03 K/uL (0-0.2); EOS % 3.3 %; EOS ABS # 0.23 K/uL (0-0.5); HEMATOCRIT 39.5 % (37-47); HEMOGLOBIN 12.9 g/dL (12.0-16.0); IG# 0.03 K/uL (0.00-0.02); LYMPH % 9.8 %; LYMPH ABS # 0.68 K/uL (1.2-3.4); MEAN CELL VOLUME 90.2 fL (80-100); MEAN CORPUSCULAR HEMOGLOBIN 29.5 pg (25-34); MEAN CORPUSCULAR HGB CONC 32.7 g/dl (32-36); MEAN PLATELET VOLUME 10.9 fL (7.4-10.4); MONO % 10.2 %; MONO ABS # 0.71 K/uL (0.11-0.59); NEUT % 75.9 %; NEUT ABS # 5.28 K/uL (1.4-6.5); PLATELET COUNT 291 K/uL (130-400); RED CELL DISTRIBUTION WIDTH CV 15.3 % (11.5-14.5); RED CELL DISTRIBUTION WIDTH SD 50.8 fL (36.4-46.3); WHITE BLOOD COUNT 6.96 K/uL (4.8-10.8)
--- NOTE | 2017-12-02 17:08 | DIAGNOSTIC IMAGING REPORT ---
LUMBAR SPINE CT WITHOUT CONTRAST CLINICAL HISTORY: s/p fall, knee pain, radicular LLE pain COMPARISON STUDY: No previous studies for comparison. FINDINGS: For purposes of numbering on this exam, the L5-S1 disc space is assigned to axial image 237 of 280. There is mild levoscoliosis of the lumbar spine. There is 7 mm of anterolisthesis of L4 and L5. There is marked multilevel disc space narrowing with ossified ptosis and vacuum disc phenomenon. There is slight retrolisthesis of L1 on L2 and L2 on L3. There is severe multilevel facet arthrosis. There is no acute cervical spine fracture or suspicious lesion. The sacroiliac joints are intact. Paravertebral soft tissues are unremarkable. The central canal and neural foramen are suboptimally assessed by CT. However, there is suspected moderate to severe central canal stenosis at L4-L5. Moderate multilevel neural foraminal stenosis is present. An IVC filter is incidentally noted. Low-attenuation bilateral adrenal nodules likely reflect adenomas. IMPRESSION: 1. No acute lumbar spine fracture or subluxation. 2. Mild levoscoliosis of the lumbar spine and grade I anterolisthesis of L4 and L5. 3. Severe multilevel disc space narrowing with vacuum disc phenomenon and severe multilevel facet arthrosis. Suboptimal evaluation of the central canal and neural foramen given CT technique. Suspected moderate to severe central canal stenosis at L4-L5. Electronically signed by: Kelton Cannon M.D. 12/02/2017 5:07 PM Dictated Date/Time: 12/02/2017 5:00 PM
[2017-12-02 17:11] LABS: ALBUMIN 2.9 gm/dl (3.4-5.0); ALKALINE PHOSPHATASE 59 U/L (45-117); ALT/SGPT 25 U/L (12-78); AST/SGOT 25 U/L (15-37); BLOOD UREA NITROGEN 58 mg/dl (7-18); CALCIUM 8.3 mg/dl (8.5-10.1); CARBON DIOXIDE 26 mmol/L (21-32); CREATININE 2.45 mg/dl (0.60-1.20); GLUCOSE 88 mg/dl (70-99); POTASSIUM 5.4 mmol/L (3.5-5.1); SODIUM 141 mmol/L (136-145); TOTAL PROTEIN 7.8 gm/dl (6.4-8.2)
--- NOTE | 2017-12-02 17:53 | DIAGNOSTIC IMAGING REPORT ---
CT SCAN OF PELVIS WITHOUT IV CONTRAST CLINICAL HISTORY: Fall. Bilateral leg weakness. COMPARISON STUDY: No priors. TECHNIQUE: CT scan of the bony pelvis is performed from the pelvic inlet to the proximal femora. Images are reviewed in the axial, sagittal, and coronal planes. IV contrast was not administered as per the referring clinician. A dose lowering technique was utilized adhering to the principles of ALARA. Note that interpretation is suboptimal without plain film correlate. FINDINGS: The skeletal structures are osteopenic. No fracture is seen involving the hips or bony pelvis. The visualized lower lumbar spine appears intact. Advanced arthritic change is seen in the hips, left greater than right, where there is near complete loss of the joint space, extensive bony sclerosis, and subchondral cyst formation. No lytic or blastic lesion is seen. Mild degenerative change is noted in the sacroiliac joints. Lumbosacral spondylosis is partially visualized. There is generalized atrophy of the pelvic musculature. Atherosclerotic calcification is noted in the iliac vessels. No soft tissue hematoma is identified. There is rectosigmoid fecal retention. There is no evidence of bowel obstruction. Advanced diverticulosis is noted in the partially imaged colon. There is no CT evidence of acute diverticulitis in the pelvis. No pelvic sidewall or inguinal lymphadenopathy is identified. The bladder, uterus, and adnexa are normal as imaged. An IVC filter is noted on the machine feeder raw stock tomogram. IMPRESSION: 1. Osteopenia with no acute bony abnormality identified involving the hips or pelvis. 2. 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 3. There is no evidence of soft tissue injury in the pelvis. 4. Advanced colonic diverticulosis without CT evidence of acute diverticulitis in the pelvis. Dictated: 12/02/2017 5:05 PM Transcribed: 12/02/2017 5:53 PM [place] Electronically signed by: Tommie Thomas M.D. 12/02/2017 6:01 PM Dictated Date/Time: 12/02/2017 5:05 PM
[2017-12-02 17:58] LABS: INR 8.8 (0.9-1.1); PTT PATIENT 48.8 SECONDS (21.0-31.0)
[2017-12-02] MEDS ORDERED: SODIUM CHLORIDE 0.9% 500ML 500 ML IV STA (17:59)
--- NOTE | 2017-12-02 18:44 | DIAGNOSTIC IMAGING REPORT ---
CHEST ONE VIEW PORTABLE CLINICAL HISTORY: KEYSHA, h/o CHF, weakness COMPARISON STUDY: Chest radiograph November 26, 2017. FINDINGS: Lung volumes are normal. There is no pneumothorax or pleural effusion. Cardiomegaly is unchanged. A large hiatal hernia is present. The appearance of the chest is unchanged. Left basilar opacity is unchanged. IMPRESSION: No acute cardiopulmonary findings. No change in appearance of the chest. Left basilar opacity which is unchanged and most likely related to a large hiatal hernia. Electronically signed by: Kelton Cannon M.D. 12/02/2017 6:42 PM Dictated Date/Time: 12/02/2017 6:40 PM
--- NOTE | 2017-12-02 20:58 | DIAGNOSTIC IMAGING REPORT ---
MRI OF THE LUMBAR SPINE WITHOUT IV CONTRAST CLINICAL HISTORY: Fall. Lower extremity weakness. COMPARISON STUDY: CT scan of the lumbar spine dated 12/02/2017. TECHNIQUE: MRI of the lumbar spine is performed utilizing various T1 and T2-weighted sequences in the axial and sagittal planes. IV contrast was not administered for this examination. The examination is degraded by motion artifact and scoliosis. FINDINGS: Lumbar spine: Marrow signal intensity is heterogeneous. Vertebral body height is maintained throughout the lumbar spine. There is minimal retrolisthesis at L1-L2, L2-L3, and L3-L4. 9 mm of anterolisthesis is seen at L4-L5. There is no marrow edema identified to suggest acute fracture. The transverse and spinous processes appear intact. There is no evidence of spondylolysis. Anterior osteophytes are seen throughout. Advanced chronic degenerative endplate change is seen at all levels, greatest at L1-L2 and L2-L3. Mild degenerative endplate edema is seen at T12-L1 and L3-L4. No destructive bony lesion is suggested. Intervertebral discs: There is advanced degenerative disc desiccation throughout the lumbar spine. Severe loss of height is identified at T12-L1, L1-L2, L2-L3, and L3-L4. Loss of height is moderate at L4-L5 and L5-S1. Spinal cord: The partially imaged spinal cord is normal in morphology and signal intensity. The conus medullaris terminates at the T12-L1 interspace. The nerve roots of the cauda equina are normal in morphology and signal intensity. L1-L2: There is a small posterior disc osteophyte complex. No significant acquired compromise of the central canal is seen at this level. There is bilateral subarticular stenosis, right greater than left. The neural foramina are patent. L2-L3: There is a small posterior disc osteophyte complex. This is eccentric to the right and likely abuts the transiting right-sided nerve roots. There is no significant acquired compromise of the central canal at this level. There is severe right-sided subarticular stenosis. Facet arthropathy causes mild right neural foraminal narrowing. L3-L4: There is a small posterior disc osteophyte complex. Annular fissure is noted. There is no significant acquired compromise of the central canal. Facet arthropathy is of no consequence. The neural foramina are patent. L4-L5: There is a posterior disc bulge with annular fissure. In conjunction with hypertrophy of the ligamentum flavum and anterolisthesis, this causes moderate central canal stenosis with a minimum AP canal diameter of 6 mm. There is bilateral subarticular stenosis, right greater than left. This may impinge on the exiting right L4 nerve root. The disc bulge abuts the transiting bilateral L5 nerve roots. Facet arthropathy causes minimal left-sided neural foraminal stenosis. L5-S1: The central canal is widely patent. The neural foramina are clear. Facet arthropathy is of no consequence. Sacrum: The visualized sacrum is normal in morphology and signal intensity. Soft tissues: There is diffuse fatty atrophy of the paraspinous and iliopsoas musculature. The partially visualized kidneys are atrophic. No retroperitoneal lymphadenopathy is identified. IMPRESSION: 1. There is no MRI evidence of fracture. 2. There is no disc herniation. 3. Multilevel lumbosacral spondylosis as above with acquired compromise of the central canal at L4-L5. See discussion for detailed [id number] analysis. 4. Advanced degenerative disc disease with associated endplate change as above. Dictated: 12/02/2017 8:23 PM Transcribed: 12/02/2017 8:57 PM [place] Electronically signed by: Tommie Thomas M.D. 12/02/2017 9:41 PM Dictated Date/Time: 12/02/2017 8:23 PM
[2017-12-02 21:42] VITALS: BP 134/76; PULSE 75; O2SAT 98
== END 2017-12-02 21:42 | disposition home or self-care (01) ==
LOC: EDBD 15:01 → C.EDB 15:02
DX: E86.0 Dehydration (principal); E87.5 Hyperkalemia; R29.6 Repeated falls; M47.896 Other spondylosis, lumbar region; M17.12 Unilateral primary osteoarthritis, left knee; M85.88 Other specified disorders of bone density and structure, other site; I48.0 Paroxysmal atrial fibrillation; Z79.01 Long term (current) use of anticoagulants; Z79.899 Other long term (current) drug therapy; Z86.718 Personal history of other venous thrombosis and embolism; Z85.3 Personal history of malignant neoplasm of breast; Z82.3 Family history of stroke